=== PATIENT | female | born 1960 | race Caucasian/White ===

== ENCOUNTER 2025-03-06 13:54 | Outpatient (REF) | payer OTHER, SELFPAY ==
--- NOTE | ~2025-03-06 | XR_ITS ---
EXAMINATION: XR CERVICAL SPINE CLINICAL INFORMATION: G95.9 - Disease of spinal cord, unspecified COMPARISON: None available. TECHNIQUE: Or views of the cervical spine, inclusive of flexion and extension views, were obtained. FINDINGS: There is normal cervical lordosis. The vertebral heights and alignment is normal. There is loss of C4-C5, C5-6 and C6-C7 disc heights with ventral spondylosis. No visible acute fracture, dislocation or subluxation seen. No lytic or sclerotic process seen. There are bilateral C7 cervical ribs. The prevertebral and paravertebral soft tissues are normal XR/XR cervical spine 4V IMPRESSION: Mild degenerative disc changes C4-5, C5-6 and C 6-7 disc levels. No visible acute fracture or dislocation. Electronically signed by: Armani Rae MD 03/07/2025 02:32 PM EDT
--- NOTE | ~2025-03-06 | XR_ITS ---
EXAMINATION: Lumbar spine 4 views. CLINICAL INDICATION: Spondylolisthesis. COMPARISON: None. FINDINGS: There is grade 1 anterolisthesis L4 over L5. There are bilateral Vascular screws and interconnecting rods at L5 and S1 vertebra for posterior fusion. Rest of the vertebral alignment is normal. There is loss of L4-5 and L5-S1 disc heights. On flexion-extension views there is no reduction in L4 over L5 listhesis. No visible acute fracture, lytic or sclerotic process seen. The paravertebral soft tissues are normal. XR/XR lumbar spine 4V min IMPRESSION: Grade 1 anterolisthesis L4 over L5 and posterior hardware at the L5-S1 disc level for fusion. There is no subluxation at these disc levels on flexion or extension views. Electronically signed by: Armani Rae MD 03/07/2025 03:25 PM EDT
--- OUTSIDE RECORDS SUMMARY | 2025-03-06 16:45 | XMS_ITS | Encounter Summary ---
Author Organization [employer] Address [address] [place] [address] 7t [place] [address] Care Team Providers Care Telephone Services Sales Representative Name Role Phone Krystyna Bose PA-C Primary Care Provider Unav ailable Encounter Details Date Type Department Care Team (Late st Contact Info) Description 11/05/2023 Orders Only [facility] [address] [place] [address] Krystyna Bose PA-C Social History Tobacco Use [...] on filedocumented in this encounter Care Teams Telephone Services Sales Representative Relationship Specialty Start Date End Date Krystyna Bose PA-C PCP - General Family Medicine 10/31/22 documented as of this encounter
--- OUTSIDE RECORDS SUMMARY | 2025-03-06 16:45 | XMS_ITS | Encounter Summary ---
Author Organization [employer] Address [address] [place] [address] 7t [place] [address] Care Team Providers Care Software Project Engineer Name Role Phone Krystyna Bose PA-C Primary Care Provider Unav ailable Reason for Visit * Reason Comments Med Refill Encounter Details Date Type Department Care Team ([facility] st Contact Info) Description 11/11/2024 Refill [facility] MEDICAL [address] [place] [address] Bharti James MD [address] [place] [address] Fibromyalgia Social History Tobacco Use Types Packs/Day [...] myositis documented in this encounter Care Teams Software Project Engineer Relationship Specialty Start Date End Date Krystyna Bose PA-C PCP - General Family Medicine 10/31/22 documented as of this encounter
--- OUTSIDE RECORDS SUMMARY | 2025-03-06 16:45 | XMS_ITS | Clinical Summary ---
Author Organization [employer] Address [address] [place] [address] 7t [place] [address] Care Team Providers Care Ramp Service Man Name Role Phone Krystyna Bose PA-C Primary [...] Type Department Care Team Description 03/01/[address] [address] Kaylene Echeverria CNP 02/24/[address] [address] Krystyna Bose PA-C Chronic pain syndrome; History of lumbar fusion; Fibromyalgia 02/24/[address] [address] Kaylene Echeverria CNP Chronic pain syndrome 02/03/[address] [address] Krystyna Bose PA-C Med Refill 01/31/[address] [address] Shaista Carranza FNP 01/31/[address] [address] [place], [place], CREDIT FRONT OFFICE DEVELOPER Hyperlipidemia, unspecified; Chronic pain syndrome 01/30/[address] [address] Krystyna Bose PA-C Chronic pain syndrome; History of lumbar fusion; Fibromyalgia 01/05/[address] [address] Krystyna Bose PA-C ? refill date change request 01/04/2025 1:40 PM EST Office Visit [address] [address] Shaista Carranza, CEDRICK Chronic pain syndrome (Primary Dx); History of lumbar fusion; Chronic neck pain 01/04/[address] [address] Shaista Carranza FNP Med Refill 12/30/[address] [address] Krystyna Bose PA-C Chronic pain syndrome; History of lumbar fusion 12/25/[address] [address] Aleksandra Orellana, CEDRICK Chronic pain syndrome 12/08/[address] [address] Aleksandra Orellana, CREDIT FRONT OFFICE DEVELOPER Chronic pain syndrome 12/08/[address] [address] Krystyna Bose PA-C Prior Authorization (oxycodone) 12/07/2024 1:40 PM EST Office Visit [address] [address] Shaista Carranza FNP Fibromyalgia (Primary Dx); Chronic pain syndrome; History of lumbar fusion 12/07/2024 Orders Only [address] [address] Shaista Carranza FNP 12/06/[address] [address] Krystyna Bose PA-C Chronic pain syndrome from [...] Laterality Modality Spine, L-spine Magnetic Resonan ce [facility] [place] IMG MRI PROCEDURES Final Result * MR Thoracic Spine w/o Contrast (01/07/2025) Anatomical Region Laterality Modality Spine, T-spine Magnetic Resonan ce [facility] [place] IMG MRI PROCEDURES Final Result * MR Cervical Spine w/o Contrast (01/07/2025) Anatomical Region Laterality Modality Spine, C-spine Magnetic Resonan ce [facility] [place] IMG MRI PROCEDURES Final Result * ToxAssure?? [...] 12:05 PM EST Performed at: ??01 - [employer] [address] [place] [address] ??[id number] Patient Sitter: Rachell Moreno [facility], Phone: ??[phone] Specimen Comment: A duplicate report has been generated due to demographic updates. us Shaista Carranza CREDIT FRONT OFFICE DEVELOPER LAB URINE ORDERABLES Koki l Result [facility] [...] 12:05 PM EST Performed at: ??01 - [employer] [address] ??[id number] Patient Sitter: Rachell Moreno [facility], Phone: ??[phone] Specimen Comment: A duplicate report has been generated due to demographic updates. Shaista PHILIP HISTORICAL/NON ORDERABLE LABS Final Result [facility] 1 * Opiate Class, MS, Ur RFX (12/07/2024 2:00 PM EST) Pathologist [facility] OPIATE CLASS, Urine Negative [facility] 1 Codeine, [...] 12:05 PM EST Performed at: ??01 - [employer] [address] [place] [address] ??[id number] Patient Sitter: Rachell Virgen, Phone: ??[phone] Specimen Comment: A duplicate report has been generated due to demographic updates. Shaista Carranza CREDIT FRONT OFFICE DEVELOPER HISTORICAL/NON ORDERABLE LABS Final Result [facility] 1 * Cologuard?? colon cancer screening (09/04/2023 8:12 PM EDT) Cologuard Result Negative Negative 09/11/20 5:17 AM EDT [employer] (CLIA #:[id number]) Comment: NEGATIVE TEST RESULT. A negative Cologuard [...] cancer. ??Following a negative Cologuard result, the [place] [employer] Society and U.S. Multi-Society Task Force screening guidelines recommend a Cologuard re-screening interval of 3 years. References: [place] [employer] Guideline for Colorectal Cancer Screening: https://www.cancer.org/cancer/cwgfe-qanprx-cmjlkc/cusrvrvcs-zbtfuvtoc-yrqnscw/ac s-rec ommendations.html.; Sarbjit DK, Veronika CR, Shavonne GonzálesK, Colorectal Cancer Screening: Recommendations for Physicians and Patients from the U.S. Multi-Society Task Force on Colorectal Cancer Screening , Am J Gastroenterology 2017; 112:6011-5368. TEST DESCRIPTION: Composite algorithmic analysis of stool [...] (Lizbeth Li al, N Engl J Med 2014;370(14):0035-2669.) Cologuard may produce a false negative or false positive result (no colorectal cancer or precancerous polyp present at colonoscopy follow up). A negative Cologuard test result does not guarantee the absence of CRC or advanced adenoma (pre-cancer). The current Cologuard screening interval is every 3 years. ([place] [employer] Society and U.S. Multi-Society Task Force). Cologuard performance data in a 10,000 patient pivotal study using colonoscopy as the reference method can be accessed at the following location: www.vip.com.Fresvii/results. Additional description of the Cologuard test process, warnings and precautions can be found at www.STAT-DiagnosticaogFruition Partnersrd.com. Stool specimen (specimen) 09/04/2023 8:12 PM EDT 09/07/2023 1:52 PM EDT us Krystyna Bose PA-C LAB MOLECULAR DIAGNOSTICS O RDERABLES Final Result [employer] (CLIA #:[id number]) [place] [address], * PAP, LB with CT/GC and HPV (10/31/2022 10:55 PM EST) PAP, LB WITH CT/GC AND HPV Patient Name: WHITNEY ROSA [facility] Comment: Patient : ?[id number] (Age: 62) Lab Accession #: ? [id number] Collection Date: ? 10/31/2022 Accession Date: ? 11/01/2022 Sign Out Date: ? 11/04/2022 Tissue Source: 1: THINPREP CANDY SUPERVISOR PAP TEST, CERVICAL: Final Diagnosis: NEGATIVE FOR INTRAEPITHELIAL LESION OR MALIGNANCY. Satisfactory for evaluation. ??Endocervical/transformation zone present. Procedures/Addenda: Human Papilloma Virus, High-Risk (Any Dx) ? Status: Signed Out Interpretation: Negative Methodology: Qwenty Aptima HPV mRNA assay (Nucleic Acid Amplification Test, NAAT). Clinical History: Date of Last Menstrual Period: ?? not available Menstrual History: ?? not available Contraceptive History: ??not available Ancillary Testing: ??HPV (any dx) Case imaged by the [employer] Imaging System with manual rescreening or review. Clinical History (other): ??z12.4, routine screen Phone #: ??[phone], On-Call Pathologist: ??[id number] Testing performed or reported by [facility], a Service of [facility], [address] [place] [address] Celina Garcia MD, Tire Repairman [facility]# [id number] 10/31/2022 10:5 5 PM EST 11/01/2022 6:18 AM EST Krystyna Bose PA-C LAB CYTOLOGY ORDERABLES Fin al Result [facility] [address] [place] [id number] * Colonoscopy (10/06/2011 2:33 PM EST) Anatomical Region Laterality Modality Endoscopy Impressions 10/06/2011 2:33 PM EST Normal-10 yr rpt Historical Provider ENDOSCOPY PROCEDURE ORDER ROC Final Result from Last 3 Months or Most Recently Relevant to Health Maintenance Insurance , [address] [place] [address] Care Teams Ramp Service Man Relationship Specialty Start Date End Date Krystyna Bose PA-C PCP - General Family Medicine 10/31/22
--- OUTSIDE RECORDS SUMMARY | 2025-03-06 16:45 | XMS_ITS | Encounter Summary ---
Author Organization [employer] Address [address] [place] [address] 7t [place] [address] Care Team Providers Care Job Analysis Manager Name Role Phone Krystyna Bose PA-C Primary Care Provider Unav ailable Reason for Visit * Reason Comments Med Refill Encounter Details Date Type Department Care Team (Late st Contact Info) Description 01/06/2024 Refill [facility] [address] [place] [address] Neema Lujan FNP Chronic pain syndrome Social [...] syndrome documented in this encounter Care Teams Job Analysis Manager Relationship Specialty Start Date End Date Krystyna Bose PA-C PCP - General Family Medicine 10/31/22 documented as of this encounter
--- OUTSIDE RECORDS SUMMARY | 2025-03-06 16:45 | XMS_ITS | Encounter Summary ---
Author Organization [employer] Address [address] [place] [address] 7t [place] [address] Care Team Providers Care Distribution Systems Superintendent Name Role Phone Krystyna Bose PA-C Primary Care Provider Unav ailable Reason for Visit * Reason Comments Med Refill Encounter Details Date Type Department Care Team ([facility] st Contact Info) Description 11/10/2024 Refill [place] [facility] [address] [place] [address] Bharti James MD [address] [place] [address] Fibromyalgia Social History Tobacco Use Types Packs/Day [...] myositis documented in this encounter Care Teams Distribution Systems Superintendent Relationship Specialty Start Date End Date Krystyna Bose PA-C PCP - General Family Medicine 10/31/22 documented as of this encounter
--- OUTSIDE RECORDS SUMMARY | 2025-03-06 16:45 | XMS_ITS | Encounter Summary ---
Author Organization [employer] Address [address] [facility] 7t [place] [address] Care Team Providers Care Crew Director Name Role Phone Krystyna Bose PA-C Primary Care Provider Unav ailable Reason for Visit * Reason Comments Med Change Request Encounter Details Date Type Department Care Team ([facility] Contact Info) Description 03/01/2025 Refill [place] [facility] [address] [place] [address] Kaylene Echeverria, JACKELINE [address] [place] [address] Social History Tobacco Use Types Packs/Day Years [...] on filedocumented in this encounter Care Teams Crew Director Relationship Specialty Start Date End Date Krystyna Bose PA-C PCP - General Family Medicine 10/31/22 documented as of this encounter
== END 2025-03-06 13:55 | disposition home or self-care (01) ==
LOC: HO.HOSX 13:54
PROVIDERS: PCP Family Medicine; Referring Provider Nurse Practitioner Family; Visit Provider Physician Assistant
DX: G95.9 Disease of spinal cord, unspecified (principal); M43.16 Spondylolisthesis, lumbar region; Z98.1 Arthrodesis status
CPT/HCPCS: 72050; 72110

== ENCOUNTER 2025-03-06 13:54 | Outpatient (AMB) | payer OTHER, SELFPAY ==
--- NOTE | 2025-03-06 13:59 | A.SPINEOV_ITS ---
Intake Visit Reasons: cervical stenosis Intake Note: Ms. Rosa is here today regarding her neck. MRI done @ [facility] (brought disc) Director Outpatient Services Required: No Assessment & Plan Assessment & Plan (1) Cervical myelopathy: Code(s): G95.9 - Disease of spinal cord, unspecified Category: Medical (2) Spondylolisthesis, lumbar region: Code(s): M43.16 - Spondylolisthesis, lumbar region Category: Medical Plan Dear Shaista, Thank you for referring Mrs Rosa to our office today. She is a very nice 64-year-old female who presents for evaluation of 2 separate issues today. The 1st is she has a history of an L5-S1 lumbar interbody fusion done in the early by Dr. Stallworth. She did well with that surgery, recovered and has been doing okay but over the last few years she developed increased low back pain and bilateral lower extremity pain. The symptoms are particularly bad with standing and walking. It also gets worse when there is a storm or bad weather approaching. It has gotten to the point now where she is very limited with her quality of life because of the pain. She has done a number of different conservative treatments through the years including physical therapy and chiropractor, however none recently. She has also done cortisone injections in the past as well with limited success. She has no interest in pursuing anymore of that. She comes in today for evaluation of her low back with an MRI done at [facility] showing spondylolisthesis at L4-5 consistent with the adjacent segment disease. She has taken gabapentin, metaxalone and she takes oxycodone 3 times a day nor to help with the pain. A 2nd issue is that she has been having neck pain and bilateral arm numbness, specifically when she puts her head down to read her Caron. She can make it go away if she stops with flexion of her neck. She has not report any loss of strength in her hands otherwise. She does have some balance issues. She has an MRI done at [facility] of her cervical spine showing stenosis at C4-5 with spondylolisthesis at C3-4. To this point she has had no dedicated conservative treatment on her neck and again she takes Skelaxin, gabapentin and oxycodone to help with this pain. PMH: Medical history positive for fibromyalgia, back pain, high cholesterol, chronic fatigue, history of COPD, she has been a lifelong smoker, but she does not use oxygen and just takes a few inhalers occasionally during the week but not every day. She denies any history of heart attack, stroke, bleeding disorders, blood clots, major abdominal surgery, cancer. She does have the history of back surgery as outlined above. Social hx: She is a lifelong smoker continues to smoke about half a pack a day, occasionally uses marijuana and alcohol Medications: Gabapentin, metaxalone, oxycodone, pravastatin, bupropion Allergies: Amoxicillin and erythromycin Physical exam: She is awake alert oriented no acute distress, able to stand up walk into the hallway, her tandem gait testing does reveal some unsteadiness. Motor exam reveals 5/5 strength. She is diffusely hyperreflexic with Banegas's sign in the left hand and clonus in both feet. Romberg test is negative. Imaging review: There is a cervical MRI done at [facility] which shows spondylolisthesis at C3-4, degenerative disc disease at C4-5 with moderate to severe central canal stenosis, no cord signal changes seen. Lumbar MRI done at [facility] shows postsurgical artifact at L5-S1, this obscures the spinal canal at this level. At L4-5 I can see a spondylolisthesis grade 1-2 with enlarged and hyperintense facets and bilateral foraminal narrowing. Lumbar standing flexion-extension x-rays shows significant translation anteriorly to a grade 2 spondylolisthesis with standing. Cervical flexion-extension x-rays reveals some motion at C3-4 but does not look overtly unstable. Impression: 64-year-old female presents for 2 separate issues, the 1st being her lumbar spine. She has history of previous L5-S1 fusion done by Dr. Stallworth in the early for which she recovered well, but unfortunately over the last few years she has had a progression of back pain and bilateral lower extremity pain which radiates down into her thighs. The pain is aggravated with standing, walking and activity. It has been getting progressively worse through the years and we can see on her lumbar MRI that she has adjacent segment disease and almost a grade 2 spondylolisthesis at L4-5. This would all be consistent with the adjacent segment disease. I suspect she is going to need fusion to correct this and to deal with the instability in the spine. I will review with Dr. Noguera and get back to the patient with a final plan. I do not think further conservative management in the form of physical therapy and cortisone injections will be helpful. I suspect her insurance company will want to put her through physical therapy before surgery, however I do not deem this necessary given the amount of pain she is in. A 2nd issue is with her cervical spine, she has been getting numbness down her arms consistent with Lhermitte's phenomenon and she does have hyperreflexia on exam all consistent with myelopathy. Her imaging shows moderate-severe stenosis at C4-5 which I think it is meaningful given her symptoms. I do not see any cord signal change thankfully. Again I will review with Dr. Noguera, see if he believes this patient would benefit from anterior cervical fusion at C4-5. She does have a component of neck pain in addition to the neurological symptoms, and there is a slight spondylolisthesis at C3-4 but I will need to review the x-rays with him to see if this needs to be addressed as well. Once I have a final plan I will call her back and review everything with her. Thank you for allowing us to care for your patient. The total time spent with this visit with this patient was 65 minutes reviewing history, physical exam, lumbar and cervical imaging review, and implementation of treatment plan or further diagnostic testing Junito Noguera MD,PhD [facility] Orders: Orders XR cervical spine 4V 03/06/25 G95.9 - Disease of spinal cord, unspecified XR lumbar spine 4V min 03/06/25 M43.16 - Spondylolisthesis, lumbar region Coding Level of Care Code New Pt Level 5 (15539) Diagnoses Cervical myelopathy G95.9 Spondylolisthesis, lumbar region M43.16
--- OUTSIDE RECORDS SUMMARY | 2025-03-06 16:09 | XMS_ITS | Encounter Summary ---
Author Organization [employer] Address [address] [place] [address] [address] [place] [address] Care Team Providers Care Sales Project Manager Name Role Phone Krystyna Bose PA-C Primary Care Provider Unav ailable Reason for Visit * Reason Comments Med Refill Encounter Details Date Type Department Care Team ([facility] st Contact Info) Description 11/11/2024 Refill [facility] MED[facility] [address] [place] [address] Bharti James MD [address] [place] [address] Fibromyalgia Social History Tobacco Use Types Packs/Day Years Used Date Smoking Tobacco: Every Day Cigarettes Smokeless Tobacco: Never Alcohol Use Standard Drinks/Week Comments Yes 0 (1 standard drink = 0.6 oz pur e alcohol) rare 1-2/year Comments Unknown Sex and Gender Information Value Date Recorded Sex Assigned at Female 10/30/2022 3:54 PM EST Legal Sex Female 8:33 PM EDT Gender Identity Female 10/30/2022 3:54 PM EST Sexual Orientation Straight 01/28/2023 10 :24 AM EST documented as of this encounter Miscellaneous Notes * Telephone Encounter - Freddy Martino CMA - 11/11/2024 1:56 PM EST Images from the original note were not included. Per covering provider, Pt needs to schedule an office visit before refill can be approved. documented in this encounter Plan of Treatment Not on file documented as of this encounter Visit Diagnoses Diagnosis Fibromyalgia Unspecified myalgia and myositis documented in this encounter Care Teams Sales Project Manager Relationship Specialty Start Date End Date Krystyna Bose PA-C PCP - General Family Medicine 10/31/22 documented as of this encounter
--- OUTSIDE RECORDS SUMMARY | 2025-03-06 16:09 | XMS_ITS | Encounter Summary ---
Author Organization [employer] Address [address] [place] [address] [address] [place] [address] Care Team Providers Care Zigzag Stitcher Name Role Phone Krystyna Bose PA-C Primary Care Provider Unav ailable Encounter Details Date Type Department Care Team (Late st Contact Info) Description 11/05/2023 Orders Only [facility] [address] [place] [address] Krystyna Bose PA-C Social History Tobacco Use Types Packs/Day Years [...] AM EST documented as of this encounter Plan of Treatment Not on file documented as of this encounter Procedures Procedure Name Priority Date/Time Associated Diagnosis Comments TRANSTHORACIC ECHO (TTE) COMPLETE Routine 11/03/2023 documented in this encounter Results * Transthoracic echo (TTE) complete (11/03/2023) us Krystyna Bose PA-C CV ECHO PROCEDURES Edited R esult - Final documented in this encounter Visit Diagnoses Not on filedocumented in this encounter Care Teams Zigzag Stitcher Relationship Specialty Start Date End Date Krystyna Bose PA-C PCP - General Family Medicine 10/31/22 documented as of this encounter
--- OUTSIDE RECORDS SUMMARY | 2025-03-06 16:09 | XMS_ITS | Encounter Summary ---
Author Organization [employer] Address [address] [facility] [address] [place] [address] Care Team Providers Care Product Manager Name Role Phone Krystyna Bose PA-C Primary Care Provider Unav ailable Reason for Visit * Reason Comments Med Change Request Encounter Details Date Type Department Care Team ([facility] Contact Info) Description 03/01/2025 Refill [facility] MED[facility] [address] [place] [address] Kaylene Echeverria, JACKELINE [address] [place] [address] Social History Tobacco Use Types Packs/Day Years Used Date Smoking Tobacco: Every Day Cigarettes Smokeless Tobacco: Never Alcohol Use Standard Drinks/Week Comments Not Currently 0 (1 standard drink = 0.6 oz pur e alcohol) rare 1-2/year Housing Stability Answer Date Recorded What is your housing situation today? I have pati bettencourt 12/07/[address] you li ve. Do you have problems with any of the following? None of the above 12/07/2024 Food Insecurity Answer Date Recorded Within the past 12 months, y ou worried that your food would run out before you got money to buy more: Never True 12/07/2024 Within the past 12 months,th e food you bought just didn't last and you didn't have enough money to get more: Never True Transportation Answer Date Recorded In the past 12 months, has l ack of transportation kept you from medical appts, meetings, work or from getting things needed for daily living? No 12/07/2024 Utilities Answer Date Recorded In the past 12 months, has t he electric, gas, oil or water company threatened to shut off services in your home? No 12/07/2024 Depression Answer Date Recorded Patient Health Questionnaire-2 Score 0 12/07/2024 Internet Access Answer Date Recorded Internet Access Q1 Yes 12/07/2024 Internet Access Q2 Not on file 12/07/2024 Comments Unknown Sex and Gender Information Value Date Recorded Sex Assigned at Female 10/30/2022 3:54 PM EST Legal Sex Female 8:33 PM EDT Gender Identity Female 10/30/2022 3:54 PM EST Sexual Orientation Straight 01/28/2023 10 :24 AM EST documented as of this encounter Plan of Treatment Not on file documented as of this encounter Visit Diagnoses Not on filedocumented in this encounter Care Teams Product Manager Relationship Specialty Start Date End Date Krystyna Bose PA-C PCP - General Family Medicine 10/31/22 documented as of this encounter
--- OUTSIDE RECORDS SUMMARY | 2025-03-06 16:09 | XMS_ITS | Encounter Summary ---
Author Organization [employer] Address [address] [place] [address] [address] [place] [address] Care Team Providers Care Inflated Pad Buffer Name Role Phone Krystyna Bose PA-C Primary Care Provider Unav ailable Reason for Visit * Reason Comments Med Refill Encounter Details Date Type Department Care Team (Late st Contact Info) Description 01/06/2024 Refill [facility] MED[facility] [address] [place] [id number] Neema Lujan FNP Chronic pain syndrome Social History Tobacco Use Types Packs/Day Years [...] encounter Miscellaneous Notes * Telephone Encounter - Mary Carmen Mckeon - 01/06/2024 8:36 AM EST Patient called checking on the status of her refill documented in this encounter Plan of Treatment Not on file documented as of this encounter Visit Diagnoses Diagnosis Chronic pain syndrome documented in this encounter Care Teams Inflated Pad Buffer Relationship Specialty Start Date End Date Krystyna Bose PA-C PCP - General Family Medicine 10/31/22 documented as of this encounter
--- OUTSIDE RECORDS SUMMARY | 2025-03-06 16:09 | XMS_ITS | Clinical Summary ---
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 Active Flovent HFA 220 MCG/ACT inhaler INHALE 1 PUFF BY MOUTH TWICE A DAY. INHALED TWICE A DAY 30 DAYS 11/22/20 21 Active lidocaine (Lidoderm) 5 % patch Place 1 patch on the skin at bed time. Active loratadine (Claritin) 10 MG tablet Take 10 mg by mouth in the morning. Active hydroCHLOROthia zide (HYDRODiuril) 25 MG tablet Take 25 mg by mouth in the morning. Active pravastatin (Pravachol) 20 MG tabletIndicatio ns:Hyperlipidem ia, unspecified TAKE 1 TABLET BY MOUTH EVERY DAY 90 tablet 02/01/20 25 Active buPROPion SR (Wellbutrin SR) 150 MG 12 hr tabletIndicatio ns:Chronic pain syndrome TAKE 1 TABLET BY MOUTH 2 TIMES DAILY. DO NOT CRUSH, CHEW, OR SPLIT. 180 tablet 02/01/20 25 Active metaxalone (Skelaxin) 800 MG tabletIndicatio ns:Chronic pain syndrome TAKE 1 TABLET (800 MG) BY MOUTH IF NEEDED IN THE MORNING AND AT BEDTIME FOR MUSCLE SPASMS. 60 tablet 02/25/20 25 Active oxyCODONE (Roxicodone) 5 MG immediate release tabletIndicatio ns:Chronic pain syndrome,Histor y of lumbar fusion Take 2 tablets (10 mg) by mouth in the morning AND 1 tablet (5 mg) with lunch AND 2 tablets (10 mg) at bedtime. Do all this for 28 days. DNF Date: 03/01/2025 - Space dosing at least 4-6 hours. 140 tablet 02/25/20 25 025 Active gabapentin (Neurontin) 100 MG capsuleIndicati ons:Fibromyalgi a Take 2 capsules (200 mg) by mouth 2 times daily. DNF until 02/03/2025 120 capsule 02/25/20 25 Active gabapentin (Neurontin) 600 MG tabletIndicatio ns:Fibromyalgia Take 1 tablet (600 mg) by mouth 2 times daily. DNF until 02/03/2025 60 tablet 02/25/20 25 Active hydrOXYzine HCl (Atarax) 25 MG tablet TAKE 1 TABLET BY MOUTH IF NEEDED AT BEDTIME FOR INSOMNIA 90 tablet 03/01/20 25 Active oxyCODONE (Roxicodone) 5 MG immediate release tabletIndicatio ns:Chronic pain syndrome,Histor y of lumbar fusion Take 2 tablets (10 mg) by mouth in the morning AND 1 tablet (5 mg) with lunch AND 2 tablets (10 mg) at bedtime. Do all this for 28 days. DNF until 02/03/2025. Space dosing at least 4-6 hours. 140 tablet 02/01/20 25 025 Discontinued(Re order (will not trigger notification to Pharmacy)) gabapentin (Neurontin) 600 MG tabletIndicatio ns:Fibromyalgia Take 1 tablet (600 mg) by mouth 2 times daily. DNF until 02/03/2025 60 tablet 02/01/20 25 025 Discontinued(Re order (will not trigger notification to Pharmacy)) gabapentin (Neurontin) 100 MG capsuleIndicati ons:Fibromyalgi a Take 2 capsules (200 mg) by mouth 2 times daily. DNF until 02/03/2025 120 capsule 02/01/20 25 025 Discontinued(Re order (will not trigger notification to Pharmacy)) metaxalone (Skelaxin) 800 MG tabletIndicatio ns:Chronic pain syndrome Take 1 tablet (800 mg) by mouth if needed in the morning and at bedtime for muscle spasms. 60 tablet 02/01/20 25 025 Discontinued hydrOXYzine HCl (Atarax) 25 MG tablet TAKE 1 TABLET (25 MG) BY MOUTH IF NEEDED AT BEDTIME (INSOMNIA). 30 tablet 02/01/20 25 025 Discontinued Active Problems Problem Noted Date Diagnosed Date Chronic obstructive pulmonary disease 10/03/2022 Overview (02/01/2024): Rx flovent and proair. Does not use inhalers regularly. Admits to callie sob. ECHO was wnl so likely due to poorly controlled COPD. Recommended she start using inhalers as prescribed and can consider trelegy if sx continue. Chronic pain syndrome 10/03/2022 Overview (01/04/2025): Current management Oxycodone 10mg AM, 10mg Noon and 5mg at HS. Gabapentin 600mg BID with 400mg at noon. Utox: utox CSA MME: Fibromyalgia 10/03/2022 Overview (10/28/2022): On chronic pain management, no longer sees rheum Hyperlipidemia 10/03/2022 Overview (02/01/2024): On pravastatin, did not get labs that ordered, stressed importance of checking labs to know if meds are appropriate. Counseled on diet and exercise Major depression, single episode 10/03/2022 Overview (10/28/2022): Stable on buproprion Smoker 10/03/2022 Overview (08/04/2024): Smokes 3/4 ppd, has smoked for 45 years. LDCT 2017 showed 3mm nodule in RUL. Repeat ordered 01/2024 Assessment & Plan (10/31/2022 2:27 PM EST): Encouraged to quit Varicose veins of both lower extremities 022 Overview (02/01/2024): Takes hydrochlorothiazide prn for LE edema. Recommended compresion stockings Encounters Date Type Department Care Team Description 03/01/[address] [address] Kaylene Echeverria CNP 02/24/[address] [address] Krystyna Bose PA-C Chronic pain syndrome; History of lumbar fusion; Fibromyalgia 02/24/[address] [address] Kaylene Echeverria CNP Chronic pain syndrome 02/03/[address] [address] Krystyna Bose PA-C Med Refill 01/31/[address] [address] Shaista Carranza FNP 01/31/[address] [address] [place], [place], [employer] SALESPERSON Hyperlipidemia, unspecified; Chronic pain syndrome 01/30/[address] [address] Krystyna Bose PA-C Chronic pain syndrome; History of lumbar fusion; Fibromyalgia 01/05/[address] [address] Krystyna Bose PA-C ? refill date change request 01/04/2025 1:40 PM EST Office Visit [address] [address] Shaista Carranza, CEDRICK Chronic pain syndrome (Primary Dx); History of lumbar fusion; Chronic neck pain 01/04/[address] [address] Shaista Carranza FNP Med Refill 12/30/[address] [address] Krystyna Bose PA-C Chronic pain syndrome; History of lumbar fusion 12/25/[address] [address] Aleksandra Orellana, CEDRICK Chronic pain syndrome 12/08/[address] [address] Aleksandra Orellana, [employer] SALESPERSON Chronic pain syndrome 12/08/[address] [address] Krystyna Bose PA-C Prior Authorization (oxycodone) 12/07/2024 1:40 PM EST Office Visit [address] [address] Shaista Carranza FNP Fibromyalgia (Primary Dx); Chronic pain syndrome; History of lumbar fusion 12/07/2024 Orders Only [address] [address] Shaista Carranza FNP 12/06/[address] [address] Krystyna Bose PA-C Chronic pain syndrome from Last 3 Months Immunizations Name Administration Dates Next Due Influenza Injectable Quadriv alant Preservative Free IIV4 MDCK 08/03/2023 Influenza injectable quadriv alent preservative free 09/12/2019 Influenza, IIV3, injectable 08/04/2024,1 11/30/2021,10/21/2021,09/17,10/08/2018,01/20/2018,09/05/2016 ,09/14/2014 Influenza, Split (incl. angela fied surface antigen) 08/29/2013,09/02/2012,09/05/2011,09/18,09/07/2009 Influenza, seasonal, injecta ble, preservative free 08/04/2024 Moderna Covid-19 Vaccine 12+ 02/01/2024 Pfizer Covid-19 Vaccine 12+ 12/24/2021, 2,02/21/2021 Pfizer Covid-19 Vaccine 12+ annalee-sucrose (Chaudhari Cap) 12/20/2021 Pneumococcal Polysaccharide PPSV23 09/20/2008 TD (adult), 2 Lf tetanus tox oid, preservative free, adsorbed 11/23/1998 Tdap 10/31/2022,05/08/2011 Zoster, Recombinant 04/11/2021 Zoster, live 04/11/2021 Social History Tobacco Use Types Packs/Day Years Used Date Smoking Tobacco: Every Day Cigarettes Smokeless Tobacco: Never Tobacco Cessation:Ready to Q uit: Not Asked; Counseling Given: Not Answered Alcohol Use Standard Drinks/Week Comments Not Currently [...] Orientation Straight 01/28/2023 10 :24 AM EST Last Filed Vital Signs Vital Sign Reading Time Taken Comments Blood Pressure 118/70 01/04/2025 1:43 PM EST Pulse 76 01/04/2025 1:43 PM EST Temperature 36.5 ??C (97.7 ??F) 01/04/2025 1:43 PM ES T Respiratory Rate 16 01/04/2025 1:43 PM EST Oxygen Saturation 98% 10/31/2022 2:17 PM EST Inhaled Oxygen Concentration - - Weight 84.4 kg (186 lb) 01/04/2025 1:43 PM EST Height 156.8 cm (5' 1.75 ) 01/04/2025 1:43 PM ES T Body Mass Index 34.3 01/04/2025 1:43 PM EST Plan of Treatment Health Maintenance Due Date Last Done Comments CT Colonography 1960 FIT 1960 FOBT 1960 HIV Screening 1960 Lipid Panel 1960 Sigmoidoscopy 1960 Alcohol/Substance Use Screening 1972 Hepatitis C Screening 1978 Mammogram 2000 Pneumococcal Vaccine: 50+ Years (2 of 2 - PCV) 09/20/2009 09/20/2008 RSV Patients and Patients Aged 60 years or older (1 - Risk 60-74 years 1-dose series) 2020 Zoster Vaccines (3 of 3) 06/06/2021 04/11/2021, 05 Colonoscopy 10/06/2021 10/06/2011 COVID-19 Vaccine ( season) 2024 02/01/2024, 09/30/2022, 12/24/2021, Additional history exists Depression Screening 12/07/2025 12/07/2024, 12/07/19 25 SDOH Screening 12/07/2025 12/07/2024 Tobacco Screening 01/04/2026 01/04/2025 Colorectal Cancer Screening 09/04/2026 FIT DNA/Cologuard 09/04/2026 09/04/2023 Cervical Cancer Screening 10/31/2027 HPV/Cotest 10/31/2027 10/31/2022 Pap Smear 10/31/2027 10/31/2022, 02/13/2016 DTaP/Tdap/Td Vaccines (3 - Td or Tdap) 10/31/2032 10/31/2022, 05/08/2011, 11/23/1998 Influenza Vaccine Completed 08/04/2024, , 08/03/2023, Additional history exists HIB Vaccines Aged Out No longer eligi ble based on patient's age to complete this topic HPV Vaccines Aged Out No longer eligi ble based on patient's age to complete this topic Hepatitis A Vaccines Aged Out No long er eligible based on patient's age to complete this topic Hepatitis B Vaccines Aged Out No long er eligible based on patient's age to complete this topic IPV Vaccines Aged Out No longer eligi ble based on patient's age to complete this topic Meningococcal Vaccine Aged Out No jac marcellus eligible based on patient's age to complete this topic RSV under 20 months Aged Out No longe r eligible based on patient's age to complete this topic Rotavirus Vaccines Aged Out No longer eligible based on patient's age to complete this topic Procedures Procedure Name Priority Date/Time Associated Diagnosis Comments MR CERVICAL SPINE WO CONTRAST Routine 01/07/2025 Chronic pain syndrome MR THORACIC SPINE WO CONTRAST Routine 01/07/2025 Chronic pain syndrome MR LUMBAR SPINE WO CONTRAST STAT 01/07/2025 Chronic pain syndrome OXYCODONE CLASS, MS, UR RFX (NON ORDERABLE) Routine 12/07/2024 2:00 PM EST OPIATE CLASS, MS, UR RFX (NON ORDERABLE) Routine 12/07/2024 2:00 PM EST TOXASSURE?? FLEX 15, URINE Routine 12/07/2024 2:00 PM EST LAB COLOGUARD?? COLON CANCER SCREEN Routine 09/04/2023 8:12 PM EDT Routine health maintenance PAP, LB WITH CT/GC AND HPV Routine 10/31/2022 10:55 PM EST COLONOSCOPY Routine 10/06/2011 2:33 PM EST from Last 3 Months or Most Recently Relevant to Health Maintenance Results * MR Lumbar Spine w/o Contrast (01/07/2025) Anatomical Region Laterality Modality Spine, L-spine Magnetic Resonan ce [facility] IMG MRI PROCEDURES Final Result * MR Thoracic Spine w/o Contrast (01/07/2025) Anatomical Region Laterality Modality Spine, T-spine Magnetic Resonan ce [facility] IMG MRI PROCEDURES Final Result * MR Cervical Spine w/o Contrast (01/07/2025) Anatomical Region Laterality Modality Spine, C-spine Magnetic Resonan ce [facility] IMG MRI PROCEDURES Final Result * ToxAssure?? Flex 15, Urine (12/07/2024 2:00 PM EST) Summary Report FINAL [facility] Comment: Opiate Class, MS, Ur RFX Oxycodone Class, MS, Ur RFX ToxAssure Flex 15, Ur Test ? Result ? Flag ? Units Drug Present ??Oxycodone ?987 ? ng/mg creat ??Noroxycodone ? 1974 ?ng/mg creat ?? Sources of oxycodone include scheduled prescription medications. ?? Noroxycodone is an expected metabolite of oxycodone. Test ?Result ?Flag ?? Units ?Ref Range ??Creatinine ?31 ? mg/dL ?>=20 Declared Medications: Medication list was not provided. For clinical consultation, please call . Creatinine, Urine 31 mg/dL [facility] 1 Comment:REFERENCE RANGE: Ref Range>=20 Amphetamines IA, Urine Negative CUTOFF:30 0 ng/mL [facility] 1 Benzodiazepines, Urine Negative [facility] 1 Diazepam, Urine Not Detected ng/mg creat [facility] 1 Desmethyldiazepam, Urine Not Detected ng/mg creat [facility] 1 Oxazepam, Urine Not Detected ng/mg creat [facility] 1 Temazepam, Urine Not Detected ng/mg creat [facility] 1 Comment: Expected metabolism of benzodiazepine class drugs: Parent Drug ? Detected Metabolites ? Diazepam: ? Desmethyldiazepam, Temazepam, Oxazepam Chlordiazepoxide: Desmethyldiazepam, Oxazepam Clorazepate: ?Desmethyldiazepam, Oxazepam Halazepam: ?Desmethyldiazepam, Oxazepam Temazepam: ?Oxazepam Oxazepam: ? None Alprazolam, Urine Not Detected ng/mg creat [facility] 1 Alpha-hydroxyalpra zolam, Urine Not Detected ng/mg creat [facility] 1 Desalkylflurazepam , Urine Not Detected ng/mg creat [facility] 1 Lorazepam, Urine Not Detected ng/mg creat [facility] 1 Alpha-hydroxytriaz olam, Urine Not Detected ng/mg creat [facility] 1 Clonazepam, Urine Not Detected ng/mg creat [facility] 1 7-aminoclonazepam, Urine Not Detected ng/mg creat [facility] 1 Midazolam, Urine Not Detected ng/mg creat [facility] 1 Alpha-hydroxymidaz olam, Urine Not Detected ng/mg creat [facility] 1 Flunitrazepam, Urine Not Detected ng/mg creat [facility] 1 Desmethylflunitraz epam, Urine Not Detected ng/mg creat [facility] 1 Cocaine Metabolite IA, Urine Negative CUTOFF:15 0 ng/mL [facility] 1 ETHYL ALCOHOL Enzymatic, Urine Negative CUTOFF:0. 020 g/dL [facility] 1 CANNABINOIDS IA, Urine Negative CUTOFF:20 ng/mL [facility] 1 6-Acetylmorphine IA, Urine Negative CUTOFF:10 ng/mL [facility] 1 OPIATE CLASS IA, Urine CUTOFF:10 0 ng/mL [facility] 1 Comment:Further testing ulises cated OXYCODONE CLASS IA, Urine CUTOFF:10 0 ng/mL [facility] 1 Comment:Further testing ulises cated Methadone IA, Urine Negative CUTOFF:10 0 ng/mL [facility] 1 METHADONE MTB IA, Urine Negative CUTOFF:10 0 ng/mL [facility] 1 BUPRENORPHINE, Urine Negative [facility] 1 Buprenorphine, Urine Not Detected ng/mg creat [facility] 1 Norbuprenorphine, Urine Not Detected ng/mg creat [facility] 1 FENTANYL & ANALOGUES, Urine Negative [facility] 1 Fentanyl, Urine Not Detected ng/mg creat [facility] 1 Norfentanyl, Urine Not Detected ng/mg creat [facility] 1 TAPENTADOL IA, Urine Negative CUTOFF:20 0 ng/mL [facility] 1 Tramadol IA, Urine Negative CUTOFF:20 0 ng/mL [facility] 1 Barbiturates IA, Urine Negative CUTOFF:20 0 ng/mL [facility] 1 Phencyclidine (PCP) IA, urine Negative CUTOFF:25 ng/mL [facility] 1 12/07/2024 2:00 PM EST 12/07/2024 Narrative [facility] - 12/12/2024 12:05 PM EST Performed at: ??01 - [employer] [address] [place] [address] ??[id number] Termite Control Representative: Rachell Moreno [facility], Phone: ??[phone] Specimen Comment: A duplicate report has been generated due to demographic updates. us Shaista Carranza [employer] SALESPERSON LAB URINE ORDERABLES Koki l Result [facility] * Oxycodone Class, MS, Ur RFX (12/07/2024 2:00 PM EST) OXYCODONE CLASS, Urine +POSITIVE+ [facility] 1 Oxycodone, Urine 987 ng/mg creat [facility] 1 Oxymorphone, Urine Not Detected ng/mg creat [facility] 1 Noroxycodone, Urine 1,974 ng/mg creat [facility] 1 Noroxymorphone, Urine Not Detected ng/mg creat [facility] 1 Comment: Expected metabolism of oxycodone class drugs: Parent Drug ? Detected Metabolites ? Oxycodone: ?Oxymorphone, Noroxycodone, Noroxymorphone Oxymorphone: ?Noroxymorphone 12/07/2024 2:00 PM EST 12/07/2024 Narrative [facility] - 12/12/2024 12:05 PM EST Performed at: ??01 - [employer] [address] ??[id number] Termite Control Representative: Rachell Moreno [facility], Phone: ??[phone] Specimen Comment: A duplicate report has been generated due to demographic updates. Shaista PHILIP HISTORICAL/NON ORDERABLE LABS Final Result [facility] * Opiate Class, MS, Ur RFX (12/07/2024 2:00 PM EST) Pathologist [facility] OPIATE CLASS, Urine Negative [facility] 1 Codeine, Urine Not Detected ng/mg creat [facility] 1 Morphine, Urine Not Detected ng/mg creat [facility] 1 Normorphine, Urine Not Detected ng/mg creat [facility] 1 Norcodeine, Urine Not Detected ng/mg creat [facility] 1 Hydrocodone, Urine Not Detected ng/mg creat [facility] 1 Hydromorphone, Urine Not Detected ng/mg creat [facility] 1 Dihydrocodeine, Urine Not Detected ng/mg creat [facility] 1 Norhydrocodone, Urine Not Detected ng/mg creat [facility] 1 Comment: Expected metabolism of opiate class drugs: Parent Drug ? Detected Metabolites ? Codeine: ?Major: ??Morphine, Norcodeine ? Minor: ??Hydrocodone, Hydromorphone, ? Dihydrocodeine, Norhydrocodone, ? Normorphine Morphine: ? Major: ??Normorphine ? Minor: ??Hydromorphone Hydrocodone: ?Hydromorphone, Dihydrocodeine, ? Norhydrocodone Hydromorphone: ?None Dihydrocodeine: ?? None Heroin: ? 6-Acetylmorphine (if included), ? Morphine, Normorphine ? Codeine, in small amounts in comparison ?to morphine, is often detected when ?heroin is the source drug. 12/07/2024 2:00 PM EST 12/07/2024 Narrative [facility] - 12/12/2024 12:05 PM EST Performed at: ??01 - [employer] [address] [place] [address] ??[id number] Termite Control Representative: Rachell Virgen, Phone: ??[phone] Specimen Comment: A duplicate report has been generated due to demographic updates. Shaista Carranza [employer] SALESPERSON HISTORICAL/NON ORDERABLE LABS Final Result [facility] * Cologuard?? colon cancer screening (09/04/2023 8:12 PM EDT) Cologuard Result Negative Negative 09/11/20 5:17 AM EDT [facility] [employer] (CLIA #:[id number]) Comment: NEGATIVE TEST RESULT. A negative Cologuard result indicates a low likelihood that a colorectal cancer (CRC) or advanced adenoma (adenomatous polyps with more advanced pre-malignant features) ??is present. The chance that a person with a negative Cologuard test has a colorectal cancer is less than 1 in 1500 (negative predictive value >99.9%) or has an ??advanced adenoma is less than ??5.3% (negative predictive value 94.7%). These data are based on a prospective cross-sectional study of 10,000 individuals at average risk for colorectal cancer who were screened with both Cologuard and colonoscopy. (Lizbeth Li al, N Engl J Med 2014;370(14):1286- 1297) The normal value (reference range) for this assay is negative. COLOGUARD RE-SCREENING RECOMMENDATION: Periodic colorectal cancer screening is an important part of preventive healthcare for asymptomatic individuals at average risk for colorectal cancer. ??Following a negative Cologuard result, the [place] [employer] and U.S. Multi-Society Task Force screening guidelines recommend a Cologuard re-screening interval of 3 years. References: [place] [employer] Guideline for Colorectal Cancer Screening: https://www.cancer.org/cancer/jmvqm-xklaov-vsixsq/fodedbkus-iuunrswsi-phuwalg/ac s-rec ommendations.html.; Sarbjit DK, Veronika CR, Shavonne GonzálesK, Colorectal Cancer Screening: Recommendations for Physicians and Patients from the U.S. Multi-Society Task Force on Colorectal Cancer Screening , Am J Gastroenterology 2017; 112:5118-7200. TEST DESCRIPTION: Composite algorithmic analysis of stool DNA-biomarkers with hemoglobin immunoassay. ?? Quantitative values of individual biomarkers are not reportable and are not associated with individual biomarker result reference ranges. Cologuard is intended for colorectal cancer screening of adults of either sex, 45 years or older, who are at average-risk for colorectal cancer (CRC). Cologuard has been approved for use by the U.S. FDA. The performance of Cologuard was established in a cross sectional study of average-risk adults aged 50-84. Cologuard performance in patients ages 45 to 49 years was estimated by sub-group analysis of near-age groups. Colonoscopies performed for a positive result may find as the most clinically significant lesion: colorectal cancer [4.0%], advanced adenoma (including sessile serrated polyps greater than or equal to 1cm diameter) [20%] or non- advanced adenoma [31%]; or no colorectal neoplasia [45%]. These estimates are derived from a prospective cross-sectional screening study of 10,000 individuals at average risk for colorectal cancer who were screened with both Cologuard and colonoscopy. (Lizbeth Li al, N Engl J Med 2014;370(14):9068-5507.) Cologuard may produce a false negative or false positive result (no colorectal cancer or precancerous polyp present at colonoscopy follow up). A negative Cologuard test result does not guarantee the absence of CRC or advanced adenoma (pre-cancer). The current Cologuard screening interval is every 3 years. ([place] [employer] and U.S. Multi-Society Task Force). Cologuard performance data in a 10,000 patient pivotal study using colonoscopy as the reference method can be accessed at the following location: www.[employer]/results. Additional description of the Cologuard test process, warnings and precautions can be found at www.[email or web address].com. Stool specimen (specimen) 09/04/2023 8:12 PM EDT 09/07/2023 1:52 PM EDT us Krystyna Bose PA-C LAB MOLECULAR DIAGNOSTICS O RDERABLES Final Result [facility] (CLIA #:[id number]) [place] [address], * PAP, LB with CT/GC and HPV (10/31/2022 10:55 PM EST) PAP, LB WITH CT/GC AND HPV Patient Name: WHITNEY ROSA [facility] Comment: Patient : ?1960 (Age: 62) Lab Accession #: ? [id number] Collection Date: ? 10/31/2022 Accession Date: ? 11/01/2022 Sign Out Date: ? 11/04/2022 Tissue Source: 1: [employer] PAP TEST, CERVICAL: Final Diagnosis: NEGATIVE FOR INTRAEPITHELIAL LESION OR MALIGNANCY. Satisfactory for evaluation. ??Endocervical/transformation zone present. Procedures/Addenda: Human Papilloma Virus, High-Risk (Any Dx) ? Status: Signed Out Interpretation: Negative Methodology: [email or web address] Aptima HPV mRNA assay (Nucleic Acid Amplification Test, NAAT). Clinical History: Date of Last Menstrual Period: ?? not available Menstrual History: ?? not available Contraceptive History: ??not available Ancillary Testing: ??HPV (any dx) Case imaged by the [employer] Imaging System with manual rescreening or review. Clinical History (other): ??z12.4, routine screen Phone #: ??[phone], On-Call Pathologist: ??[id number] Testing performed or reported by [facility], a Service of [facility], [address] [place] [address] Celina Garcia MD, Orthopedic Specialist [facility]# [id number] 10/31/2022 10:5 5 PM EST 11/01/2022 6:18 AM EST Krystyna Bose PA-C LAB CYTOLOGY ORDERABLES Fin al Result [facility] [address] [place] [id number] * Colonoscopy (10/06/2011 2:33 PM EST) Anatomical Region Laterality Modality Endoscopy Impressions 10/06/2011 2:33 PM EST Normal-10 yr rpt Historical Provider ENDOSCOPY PROCEDURE ORDER [facility] Final Result from Last 3 Months or Most Recently Relevant to Health Maintenance Insurance , [address] [place] [address] Care Teams Polystyrene Molding Machine Tender Relationship Specialty Start Date End Date Krystyna Bose PA-C PCP - General Family Medicine 10/31/22
--- OUTSIDE RECORDS SUMMARY | 2025-03-06 16:09 | XMS_ITS | Encounter Summary ---
Author Organization [employer] Address [address] [place] [address] 7t [place] [address] Care Team Providers Care Special Agent Group Insurance Name Role Phone Krystyna Bose PA-C Primary Care Provider Unav ailable Reason for Visit * Reason Comments Med Refill Encounter Details Date Type Department Care Team ([facility] st Contact Info) Description 11/10/2024 Refill [place] [facility] MED[facility] [address] [place] [address] Bharti James MD [address] [place] [address] Fibromyalgia Social History Tobacco Use Types Packs/Day [...] Telephone Encounter - Freddy Martino CMA - 11/10/2024 2:11 PM EST Pt needs to schedule an office visit before any medications can be refilled. documented in this encounter Plan of Treatment Not on file documented as of this encounter Visit Diagnoses Diagnosis Fibromyalgia Unspecified myalgia and myositis documented in this encounter Care Teams Special Agent Group Insurance Relationship Specialty Start Date End Date Krystyna Bose PA-C PCP - General Family Medicine 10/31/22 documented as of this encounter
== END 2025-03-06 15:31 | disposition home or self-care (01) ==
PROVIDERS: PCP Family Medicine; Referring Provider Nurse Practitioner Family; Visit Provider Physician Assistant
DX: G95.9 Disease of spinal cord, unspecified (principal); M43.16 Spondylolisthesis, lumbar region
CPT/HCPCS: 99205

== ENCOUNTER → 2025-03-06 14:24 | Outpatient (BNV) | payer OTHER, SELFPAY | PROVIDERS: PCP Family Medicine; Referring Provider Nurse Practitioner Family; Visit Provider Radiology Diagnostic Radiology | DX: G95.9 Disease of spinal cord, unspecified (principal); M43.16 Spondylolisthesis, lumbar region; M43.27 Fusion of spine, lumbosacral region | CPT/HCPCS: 72050; 72110 ==

== ENCOUNTER 2025-04-07 13:26 | Outpatient (AMB) | payer OTHER, SELFPAY ==
--- OUTSIDE RECORDS SUMMARY | 2025-04-07 13:28 | XMS_ITS | Encounter Summary ---
Author Organization [employer] Address [address] [facility] 7t [place] [address] Care Team Providers Care Market Development Director Name Role Phone Krystyna Bose PA-C Primary Care Provider Unav ailable Encounter Details Date Type Department Care Team (Late Contact Info) Description 11/05/2023 Orders Only [place] [address] [place] [address] Krystyna Bose PA-C Social History Tobacco Use [...] as of this encounter Plan of Treatment Upcoming Encounters Date Type Department Care Team (Late Contact Info) Description 04/10/2025 1:40 PM EDT Office Visit [facility] MEDICAL [address] [place] [address] Shaista Carranza FNP [address] [place] [address] documented as of this encounter Procedures Procedure Name Priority Date/Time Associated Diagnosis Comments TRANSTHORACIC ECHO (TTE) COMPLETE Routine 11/03/2023 documented in this encounter Results * Transthoracic echo (TTE) complete (11/03/2023) us Krystyna Bose PA-C CV ECHO PROCEDURES Edited R esult - Final documented in this encounter Visit Diagnoses Not on filedocumented in this encounter Care Teams Market Development Director Relationship Specialty Start Date End Date Krystyna Bose PA-C PCP - General Family Medicine 10/31/22 documented as of this encounter
--- OUTSIDE RECORDS SUMMARY | 2025-04-07 13:28 | XMS_ITS | Encounter Summary ---
Author Organization [employer] Address [address] [facility] 7t [place] [address] Care Team Providers Care Warehouse Director Name Role Phone Krystyna Bose PA-C Primary Care Provider Unav ailable Reason for Visit * Reason Comments Med Refill Encounter Details Date Type Department Care Team (Late st Contact Info) Description 11/11/[address] [facility] MEDICAL [address] [place] [address] Bharti James MD [address] [place] [address] Fibromyalgia Social History Tobacco Use Types Packs/Day [...] documented in this encounter Plan of Treatment Upcoming Encounters Date Type Department Care Team (Late st Contact Info) Description 04/10/2025 1:40 PM EDT Office Visit [facility] MEDICAL [address] [place] [address] Shaista Carranza FNP [address] [place] [address] documented as of this encounter Visit Diagnoses Diagnosis Fibromyalgia Unspecified myalgia and myositis documented in this encounter Care Teams Warehouse Director Relationship Specialty Start Date End Date Krystyna Bose PA-C PCP - General Family Medicine 10/31/22 documented as of this encounter
--- OUTSIDE RECORDS SUMMARY | 2025-04-07 13:28 | XMS_ITS | Clinical Summary ---
Author Organization [employer] Address [address] [facility] [address] [place] [address] Care Team Providers Care Assistant Banquet Manager Name Role Phone Krystyna Bose PA-C [...] mg by mouth in the morning. Active gabapentin (Neurontin) 100 MG capsuleIndicati ons:Fibromyalgi a Take 2 capsules (200 mg) by mouth 2 times daily. DNF until 02/03/2025 120 capsule 02/25/20 25 Active hydrOXYzine HCl (Atarax) 25 MG tablet TAKE 1 TABLET BY MOUTH IF NEEDED AT BEDTIME FOR INSOMNIA 90 tablet 03/01/20 25 Active metaxalone (Skelaxin) 800 MG tabletIndicatio ns:Chronic pain syndrome TAKE 1 TABLET (800 MG) BY MOUTH IF NEEDED IN THE MORNING AND AT BEDTIME FOR MUSCLE SPASMS. 60 tablet 03/24/20 25 Active gabapentin (Neurontin) 600 MG tabletIndicatio ns:Fibromyalgia TAKE 1 TABLET (600 MG) BY MOUTH 2 TIMES DAILY 60 tablet 03/24/20 25 Active buPROPion SR (Wellbutrin SR) 150 MG 12 hr tabletIndicatio ns:Chronic pain syndrome Take 1 tablet (150 mg) by mouth 2 times daily. Do not crush, chew, or split. 180 tablet 03/24/20 25 Active pravastatin (Pravachol) 20 MG tabletIndicatio ns:Hyperlipidem ia, unspecified Take 1 tablet (20 mg) by mouth Once per day. 90 tablet 03/24/20 25 Active oxyCODONE (Roxicodone) 5 MG immediate release tabletIndicatio ns:Chronic pain syndrome,Histor y of lumbar fusion Take 2 tablets (10 mg) by mouth in the morning AND 1 tablet (5 mg) with lunch AND 2 tablets (10 mg) at bedtime. Do all this for 28 days. DNF Date: 03/27/2025 - Space dosing at least 4-6 hours. 140 tablet 03/24/20 25 025 Active pravastatin (Pravachol) 20 MG tabletIndicatio ns:Hyperlipidem ia, unspecified TAKE 1 TABLET BY MOUTH EVERY DAY 90 tablet 02/01/20 25 025 Discontinued(Re order (will not trigger notification to Pharmacy)) buPROPion SR (Wellbutrin SR) 150 MG 12 hr tabletIndicatio ns:Chronic pain syndrome TAKE 1 TABLET BY MOUTH 2 TIMES DAILY. DO NOT CRUSH, CHEW, OR SPLIT. 180 tablet 02/01/20 25 025 Discontinued(Re order (will not trigger notification to Pharmacy)) metaxalone (Skelaxin) 800 MG tabletIndicatio ns:Chronic pain syndrome TAKE 1 TABLET (800 MG) BY MOUTH IF NEEDED IN THE MORNING AND AT BEDTIME FOR MUSCLE SPASMS. 60 tablet 02/25/20 25 025 Discontinued oxyCODONE (Roxicodone) 5 MG immediate release tabletIndicatio ns:Chronic pain syndrome,Histor y of lumbar fusion Take 2 tablets (10 mg) by mouth in the morning AND 1 tablet (5 mg) with lunch AND 2 tablets (10 mg) at bedtime. Do all this for 28 days. DNF Date: 03/01/2025 - Space dosing at least 4-6 hours. 140 tablet 02/25/20 25 025 Discontinued(Re order (will not trigger notification to Pharmacy)) gabapentin (Neurontin) 600 MG tabletIndicatio ns:Fibromyalgia Take 1 tablet (600 mg) by mouth 2 times daily. DNF until 02/03/2025 60 tablet 02/25/20 25 025 Discontinued Active Problems Problem Noted [...] Encounters Date Type Department Care Team Description 03/23/[address] [address] Krystyna Bose PA-C Med Refill 03/23/[address] [address] Krystyna Bose PA-C Chronic pain syndrome; History of lumbar fusion 03/22/[address] [address] [place], [place] MACHINIST SUPERVISOR 03/22/[address] [address] Lakshmi Manzanares MD Chronic pain syndrome; Fibromyalgia; Hyperlipidemia, unspecified 03/01/[address] [address] Kaylene Echeverria CNP 02/24/[address] [address] Krystyna Bose PA-C Chronic pain syndrome; History of lumbar fusion; Fibromyalgia 02/24/[address] [address] Kaylene Echeverria, JACKELINE Chronic pain syndrome 02/03/[address] [address] Krystyna Bose PA-C Med Refill 01/31/[address] [address] Shaista Carranza FNP 01/31/[address] [address] [place], [place], MACHINIST SUPERVISOR Hyperlipidemia, unspecified; Chronic pain syndrome 01/30/2025 Rosemarie Rayn [facility] [address] [place] [address] Krystyna Bose PA-C Chronic pain syndrome; History of lumbar fusion; Fibromyalgia from Last 3 Months Immunizations Immunization Administration Dates Next Due Influenza Injectable Quadriv [...] 01/04/2025 1:43 PM EST Plan of Treatment Upcoming Encounters Date Type Department Care Team (Late st Contact Info) Description 04/10/2025 1:40 PM EDT Office Visit Den [facility] [address] [place] [address] Shaista Carranza FNP [address] [place] [address] Health Maintenance Due Date Last Done Comments [...] Zoster Vaccines (3 of 3) 06/06/2021 04/11/2021, 03/24 Colonoscopy 10/06/2021 10/06/2011 COVID-19 Vaccine ( season) 2024 02/01/2024, 09/30/2022, 12/24/2021, Additional history exists Depression Screening 12/07/2025 12/07/2024, 12/07/19 SDOH Screening 12/07/2025 12/07/2024 Tobacco Screening 01/04/2026 [...] patient's age to complete this topic Meningococcal B Vaccine Aged Out No l onger eligible based on patient's age to complete [...] Procedure Name Priority Date/Time Associated Diagnosis Comments AMB REFERRAL TO NEUROSURGERY Routine 03/06/2025 Cervical stenosis of spine LAB COLOGUARD?? COLON CANCER SCREEN Routine 09/04/2023 8:12 PM EDT Routine health maintenance PAP, LB WITH CT/GC AND HPV Routine 10/31/2022 10:55 PM EST COLONOSCOPY Routine 10/06/2011 2:33 PM EST from Last 3 Months or Most Recently Relevant to Health Maintenance Results * Referral to Neurosurgery (03/06/2025) Shaista Carranza [facility] OUTPATIENT REFERRAL ORDER ROC Final Result * Cologuard?? colon cancer screening (09/04/2023 8:12 PM EDT) Cologuard Result Negative Negative 09/11/20 5:17 AM EDT [employer] (CLIA #:[id number]) Comment: NEGATIVE TEST RESULT. A negative Cologuard [...] cancer. ??Following a negative Cologuard result, the [place] Cancer Society and U.S. Multi-Society Task Force screening guidelines recommend a Cologuard re-screening interval of 3 years. References: [place] [employer] Guideline for Colorectal Cancer Screening: https://www.cancer.org/cancer/jxmmk-syagbt-tjwotp/iknvfexne-lgreesrfv-ecuflli/ac s-rec ommendations.html.; Sarbjit DK, Veronika SRINIVASAN, Shavonne GonzálesK, Colorectal Cancer Screening: Recommendations for Physicians and Patients from the U.S. Multi-Society Task Force on Colorectal Cancer Screening , Am J Gastroenterology 2017; 112:9781-1986. TEST DESCRIPTION: Composite algorithmic analysis of stool [...] screened with both Cologuard and colonoscopy. (Lizbeth Haskins et al, N Engl J Med 2014;370(14):7493-1017.) Cologuard may produce a false negative or false positive result (no colorectal cancer or precancerous polyp present at colonoscopy follow up). A negative Cologuard test result does not guarantee the absence of CRC or advanced adenoma (pre-cancer). The current Cologuard screening interval is every 3 years. ([place] [employer] Society and U.S. Multi-Society Task Force). Cologuard performance data in a 10,000 patient pivotal study using colonoscopy as the reference method can be accessed at the following location: www.[employer]/results. Additional description of the Cologuard test process, warnings and precautions can be found at www.cologDiaphonicsrd.com. Stool specimen (specimen) 09/04/2023 8:12 PM EDT 09/07/2023 1:52 PM EDT Krystyna Bose PA-C LAB MOLECULAR DIAGNOSTICS O RDERABLES Final Result [employer] [facility] (CLIA #:[id number]) [place] [address], * PAP, LB with CT/GC and HPV (10/31/2022 10:55 PM EST) PAP, LB WITH CT/GC AND HPV Patient Name: WHITNEY ROSA [facility] Comment: Patient : ?1960 (Age: 62) Lab Accession #: ? [id number] Collection Date: ? 10/31/2022 Accession Date: ? 11/01/2022 Sign Out Date: ? 11/04/2022 Tissue Source: 1: THINPREP CUFF CUTTER PAP TEST, CERVICAL: Final Diagnosis: NEGATIVE FOR INTRAEPITHELIAL LESION OR MALIGNANCY. Satisfactory for evaluation. ??Endocervical/transformation zone present. Procedures/Addenda: Human Papilloma Virus, High-Risk (Any Dx) ? Status: Signed Out Interpretation: Negative Methodology: SeeMore Interactive Aptima HPV mRNA assay (Nucleic Acid Amplification Test, NAAT). Clinical History: Date of Last Menstrual Period: ?? not available Menstrual History: ?? not available Contraceptive History: ??not available Ancillary Testing: ??HPV (any dx) Case imaged by the [employer] Imaging System with manual rescreening or review. Clinical History (other): ??z12.4, routine screen Phone #: ??[phone], On-Call Pathologist: ??[id number] Testing performed or reported by [facility], a Service of [facility], [address] [place] [address] Celina Garcia MD, Structural Analyst [facility]# [id number] 10/31/2022 10:5 5 PM EST 11/01/2022 6:18 AM EST Krystyna Bose PA-C LAB CYTOLOGY ORDERABLES Fin al Result [facility] [address] [place] [id number] * Colonoscopy (10/06/2011 2:33 PM EST) Anatomical Region Laterality Modality Endoscopy Impressions 10/06/2011 2:33 PM EST Normal-10 yr rpt Historical Provider ENDOSCOPY PROCEDURE ORDER ROC Final Result from Last 3 Months or Most Recently Relevant to Health Maintenance Insurance , [address] [place] [address] Care Teams Assistant Banquet Manager Relationship Specialty Start Date End Date Krystyna Bose PA-C PCP - General Family Medicine 10/31/22
--- OUTSIDE RECORDS SUMMARY | 2025-04-07 13:28 | XMS_ITS | Encounter Summary ---
Author Organization [employer] Address [address] [facility] [address] [place] [address] Care Team Providers Care Straddle Bug Name Role Phone Krystyna Bose PA-C Primary Care Provider Unav ailable Reason for Visit * Reason Comments Med Refill Encounter Details Date Type Department Care Team (Late st Contact Info) Description 11/10/2024 Refill [facility] [address] [place] [address] Bharti James MD [address] [place] [address] Fibromyalgia Social History Tobacco Use Types Packs/Day [...] Description 04/10/2025 1:40 PM EDT Office Visit [facility] [address] [place], [place] [id number] Shaista Carranza FNP [address] [place] [address] documented as of this encounter Visit Diagnoses Diagnosis Fibromyalgia Unspecified myalgia and myositis documented in this encounter Care Teams Straddle Bug Relationship Specialty Start Date End Date Krystyna Bose PA-C PCP - General Family Medicine 10/31/22 documented as of this encounter
--- OUTSIDE RECORDS SUMMARY | 2025-04-07 13:28 | XMS_ITS | Encounter Summary ---
Author Organization [employer] Address [address] [facility] [address] [place] [address] Care Team Providers Care Chuck Wagon Driver Name Role Phone Krystyna Bose PA-C Primary Care Provider Unav ailable Reason for Visit * Reason Comments Med Refill Encounter Details Date Type Department Care Team ([facility] st Contact Info) Description 03/22/2025 Refill [facility] [address] [place] [address] [facility] [address] [place] [address] Social History Tobacco Use Types Packs/Day Years [...] encounter Miscellaneous Notes * Telephone Encounter - Serenity Murphy [place] - 03/22/2025 1:31 PM EDT 90 day supply ordered 3 weeks ago documented in this encounter Plan of Treatment Upcoming Encounters Date Type Department Care Team (Late st Contact Info) Description 04/10/2025 1:40 PM EDT Office Visit [facility] [address] [place] [address] Shaista Carranza FNP [address] [place] [address] documented as of this encounter Visit Diagnoses Not on filedocumented in this encounter Care Teams Chuck Wagon Driver Relationship Specialty Start Date End Date Krystyna Bose PA-C PCP - General Family Medicine 10/31/22 documented as of this encounter
--- OUTSIDE RECORDS SUMMARY | 2025-04-07 13:28 | XMS_ITS | Encounter Summary ---
Author Organization [employer] Address [address] [facility] [address] [place] [address] Care Team Providers Care Materials Supervisor Name Role Phone Krystyna Bose PA-C Primary Care Provider Unav ailable Reason for Visit * Reason Comments Med Refill Encounter Details Date Type Department Care Team (Late st Contact Info) Description 01/06/2024 Refill [facility] [address] [place] [address] Neema Lujan FNP Chronic pain syndrome Social [...] Description 04/10/2025 1:40 PM EDT Office Visit [facility] [address] [place] [address] Shaista Carranza FNP [address] [place] [address] documented as of this encounter Visit Diagnoses Diagnosis Chronic pain syndrome documented in this encounter Care Teams Materials Supervisor Relationship Specialty Start Date End Date Krystyna Bose PA-C PCP - General Family Medicine 10/31/22 documented as of this encounter
--- NOTE | 2025-04-07 13:31 | A.SPINEOV_ITS ---
Intake Visit Reasons: discuss sx Intake Note: Ms. Rosa is here today to discuss surgery. Training Development Specialist Required: No Assessment & Plan Assessment & Plan (1) Cervical myelopathy: Code(s): G95.9 - Disease of spinal cord, unspecified Category: Medical (2) Spondylolisthesis, lumbar region: Code(s): M43.16 - Spondylolisthesis, lumbar region Category: Medical Plan Mrs Rosa came back in today to review her imaging done at [facility] again into go over the procedures we have discussed over the phone. Please refer to my last note for the specifics of her problem. We have offered the patient an ACDF C4-5 to address the cervical spinal stenosis and the feelings of numbness and weakness in her arms and hands. That procedure was reviewed at length, risks, benefits and we have tentatively set a date for May 11. We also discussed her lumbar imaging showing adjacent segment disease to her previous fusion at L5-S1. She has a grade 2 spondylolisthesis at L4-[address] Noguera is willing to offer her an L4-5 oblique lumbar interbody fusion. We will have to remove her posterior instrumentation as well, and place new pedicle screws. Risks and benefits were all discussed. The patient wants to proceed b ut obviously we will address the spinal cord compression in the neck 1st. Pt was given risk and benefits of surgery including but not limited to infection, hematoma , nerve injury,durotomy, weakness,bowel/bladder injury, persistent pain, vocal hoarseness, dysphagia, adjacent segment disease as well as the option to continue with conservative treatment and patient wishes to proceed with surgery. All questions were answered to the best of our ability. If there is anything about this patients medical history that we have overlooked or concerns you have about us proceeding with surgery we would appreciate any input you can offer. Total amount of time spent in this visit was 20 minutes in discussion of symptoms, cervical and lumbar imaging results and subsequent plan of care Junito Noguera MD,PhD [facility] Coding Level of Care Code Est Pt Level 3 ([address]356) Diagnoses Cervical myelopathy G95.9 Spondylolisthesis, lumbar region M43.16
== END 2025-04-07 14:37 | disposition home or self-care (01) ==
LOC: HO.HNS 13:26
PROVIDERS: PCP Family Medicine; Visit Provider Physician Assistant
DX: G95.9 Disease of spinal cord, unspecified (principal); M43.16 Spondylolisthesis, lumbar region
CPT/HCPCS: 99213

== ENCOUNTER → 2025-04-07 13:26 | Outpatient (BNVA) | payer OTHER, SELFPAY | PROVIDERS: PCP Family Medicine; Visit Provider Physician Assistant ==

== ENCOUNTER 2025-06-01 07:46 | Day surgery (SDC) | payer OTHER, SELFPAY ==
--- OUTSIDE RECORDS SUMMARY | 2025-05-12 14:25 | XMS_ITS | Encounter Summary ---
Author Organization [employer] Address [address] [facility] [address] [place] [address] Care Team Providers Care Body Shop Mechanic Name Role Phone Krystyna Bose PA-C Primary Care Provider Unav ailable Reason for Visit * Reason Comments Med Refill Encounter Details Date Type Department Care Team (Late st Contact Info) Description 03/22/2025 Refill [facility] [address] [place] [address] [facility] [address] [place] [address] Social History Tobacco Use Types Packs/Day Years Used Date Smoking Tobacco: Every Day Cigarettes Smokeless Tobacco: Never Alcohol Use Standard Drinks/Week Comments Not Currently 0 (1 standard drink = 0.6 oz pur e alcohol) rare 1-2/year Housing Stability Answer Date Recorded What is your housing situation today? I have pati rut 12/07/[address] you li [...] the past 12 months, has t he [employer], [employer], oil or water company threatened to shut [...] Care Team (Late st Contact Info) Description 07/03/2025 11:20 AM EDT Office Visit [facility] [address] [place] [address] Shaista Carranza FNP [address] [place] [address] documented as of this encounter Visit Diagnoses Not on filedocumented in this encounter Care Teams Body Shop Mechanic Relationship Specialty Start Date End Date Krystyna Bose PA-C PCP - General Family Medicine 10/31/22 documented as of this encounter
[2025-05-25 13:06] VITALS: BP 118/58; PULSE 85; RESP 16; O2SAT 98; BMI 33.9
[2025-06-01] VITALS (15 sets, daily range): BP systolic 110–149; BP diastolic 55–89; PULSE 75–94; RESP 9–19; TEMP 36.1–36.5; O2SAT 91–96; BMI 33.4
--- NOTE | ~2025-06-01 | FL_ITS ---
EXAMINATION: FL GUIDANCE ONLY HISTORY: C4-C5 ACDF COMPARISON: Correlation is made with plain films of the cervical spine dated 03/06/2025. TECHNIQUE: Fluoroscopy time: 4.8 seconds. Cumulative Dose: 1.6845 mGy. DAP: 0.5390 mGym2 Images: 2. FINDINGS: AP and lateral fluoroscopic spot films of the cervical spine demonstrate anterior cervical disc fusion at C4-5. FL/FL guidance in OR IMPRESSION: Fluoroscopy during procedure. Please see procedure report for additional information. Electronically signed by: Raza Bush MD 06/02/2025 10:48 AM EDT
--- NOTE | 2025-06-01 07:38 | PM.DS ---
DS: Providers Provider Date of Service: 06/01/25 Date of discharge: 06/01/25 Primary care physician: CEDRICK Cisneros DS: Summary Time Attestation Discharge Coordination Time (in mins): 7 Quality: Safe Use of Opioids Does Pt have an Active Cancer Diagnosis on the Problem List?: No Quality: Stroke Does the patient have a stroke diagnosis?: No Physical Exam Vital Signs: Vital Signs: Last Vital Signs Pulse 85 05/25/25 13:06 Resp 16 05/25/25 13:06 BP 118/58 L 05/25/25 13:06 Pulse Ox 98 05/25/25 13:06 O2 Del Method Room Air 05/25/25 13:06 BMI result Body Mass Index 33.9 Discharge Plan Discharge Patient Disposition: Home, Self-Care Referrals: Shaista Carranza FNP [Primary Care Provider, Family Practice] - 1 Week Discharge Medications: Continued bupropion HCl 150 mg tablet sustained-release 12 hr 150 mg PO BID gabapentin 600 mg tablet 600 mg PO BID hydroxyzine HCl 25 mg tablet 25 mg PO BEDTIME PRN (Reason: insomnia) pravastatin 20 mg tablet 20 mg PO DAILY gabapentin 100 mg capsule 400 mg PO .@1400DAILY metaxalone 800 mg tablet 800 mg PO BID PRN (Reason: muscle spasm) fluticasone propionate 220 mcg/actuation Hfa Aerosol Inhaler 1 puff INHALATION BID Patient Comments: only takes PRN, last used last week 05/22/2025 during hot weather albuterol sulfate 90 mcg/actuation Hfa Aerosol Inhaler 2 puff INHALATION Q4-6H PRN (Reason: Shortness Of Breath Or Wheezing) oxycodone 10 mg Tablet 10 mg PO QID PRN (Reason: Pain) hxezhcehu-CQS-PA-acetaminophen 7.5-60-30-1,000 mg/30 mL Liquid PO BEDTIME Discharge Orders: Discharge Order (Routine); Ordered 06/01/25 Ordered By: Junito Golden Diet: Advance to usual diet Activity on Discharge: As tolerated Activity Restrictions/Additional Instructions: After your spinal surgery we ask you to observe the following restrictions/guidelines: Activity: It is normal to feel some discomfort as you increase your activity, but that will improve with time. We ask you avoid heavy lifting or acitivities that cause pain. As a general rule, 8lbs is a safe limit for lifting right after surgery. Walk as much as you feel comfortable but not to exhaustion. You will feel extra tired the first few days after surgery. Stay well hydrated. It is OK to walk up and down stairs You may return to driving when you are off narcotics (such as vicodin, oxycodone, dilaudid, etc), and you are back to normal functional capacity. If you have any concerns please check with office before driving. Return to work is specific to each patient and each surgery, so please speak with your doctor/PA at first follow up. Please bring paperwork such as FMLA at that time if you need it filled out. Medications: For optimum pain control, it is best to start with a combination of 500 mg of Tylenol every 4 hours with 600 mg of Motrin every 8 hours, and use narcotics as needed in between for breakthrough pain. We will give you a short supply of narcotics after surgery (usually one weeks worth). If you need more please call the office but do not use more than prescribed. You will need to give our office 48 hours notice if you need narcotics refilled and we do not fill narcotics on weekends or evenings. If you are on a narcotic, it is a good idea to take a stool softener such as colace or senna to avoid constipation If you take blood thinner such as aspirin, Plavix, Coumadin, Effient, Eliquis etc for conditions such as Afib, DVT, Pulmonary embolus, coronary disease, stents etc please speak with your surgeon about specific details as to when you can resume these medications. You can resume NSAIDs on post op day 1 (eg: Motrin, Naproxen, etc). Follow up: Please call the office, , after surgery to arrange a 3 week follow up for wound check. Wound Care: You may remove your dressing on the first day after surgery. ?You may ?leave open to air. Please do not remove the steri strips underneath. they will fall off on their own in one week. IT IS NORMAL FOR THE WOUND TO OOZE OR BE BLOODY FOR A FEW DAYS AFTER SURGERY. ?IF THIS HAPPENS JUST PLACE NEW DRESSING OVER IT TO AVOID STAINING CLOTHES. You may shower on post op day # 1 We ask that you do not let the water soak the wound. If it does get wet, just towel dry lightly. Please do not scrub your incision or place any type of chemical/ointment on the wound. No tub baths, pools or jacuzzis for one month. If you have any leaking or redness from your wound, or fevers, please call office Print Language: Australian
--- NOTE | 2025-06-01 08:49 | P.HPSUR_ITS ---
Pre-Procedural Eval Section A - 24 Hr Update-Section A only Date of Service: 06/01/25 The patient is an INPATIENT: No Section B - Complete if H&P > 30 days Chief Complaint: Disease of spinal cord, unspecified Details of Present Illness: Cervical myelopathy Allergies: Allergies Allergy/AdvReac Type Severity Reaction Status Date / Time amoxicillin Allergy Intermediate Rash Verified 05/25/25 13:18 erythromycin base AdvReac Intermediate Gastrointestinal Verified 05/25/25 13:18 Upset Review of Systems Sugical H&P ROS: Negative: Constitution, Cardiovascular, Respiratory, Neurological, Psychiatric, Hem-Onc, Allergic/Immunologic, Gastrointestinal, Genitourinary, Musculoskeletal, Integumentary, Endocrine and Eyes/Ears/Nose/T hroat Exam Surgical H&P Exam: Normal: HEENT, Normal: Heart, Normal: Lungs, Normal: Extremities, Normal: Abdomen, Normal: Skin and Normal: Neurological (Awake, alert) Plan . Anterior diskectomy and fusion C4-5 Time Spent With Patient Time: Total time managing care of this patient today ____ minutes.
[2025-06-01] MEDS: Lactated Ringers 1,000 ML 100 ML IVCONT (08:57)
--- NOTE | 2025-06-01 09:00 | HO.ANESPROP2 ---
Documented by User: Ellen Marie NP 05/30/25 14:24 HPI - Anesthesia Eval Consult details Narrative: 64yo F for C4-5 Ant Cerv Discectomy w/ fusion Medically optimized per PCP PMFSH Active Problems Active Problems: All Active Problems (Updated 05/25/25 @ 14:16 by Janell Segovia, BARRY) Spondylolisthesis, lumbar region (Acute) Cervical myelopathy (Acute) Past Medical History Medical History (Updated 05/25/25 @ 14:16 by Janell Segovia RN) Hx of bad fall Chronic prescription opiate use Chronic pain disorder Smoker Arthritis Back pain Hx of head injury (~1978) History of seizure (~1978) Edema COPD (chronic obstructive pulmonary disease) Muscle spasm Insomnia HLD (hyperlipidemia) Fibromyalgia Sleep disturbances HTN (hypertension) Low back pain Neck pain Surgical History Surgical History (Updated 05/25/25 @ 13:35 by Janell Segovia RN) Hx of colonoscopy History of loop electrical excision procedure (LEEP) History of back surgery (~1992) Social History Social History (Updated 05/25/25 @ 14:24 by Janell Segovia RN) Are you a primary rn complex care to a significant other at home: No Do you presently have visiting nurse or other home services: No Patient Tobacco Use Status: Current everyday Tobacco user Tobacco use type: Cigarette Cigarettes Per Day: 10 Years Smoked: 46 Smoked in Last 30 Days: Yes Second Hand Smoke Exposure: No Use of substances other than those prescribed or required for medical reasons: Yes Substance Use Frequency: Occasionally Have you been hit, kicked, punched, or otherwise hurt by someone within the past year? If so, by whom?: No Are you DNR?: No Advance Directives: No Advance Directives Information Provided: Yes Advance Directives on File: No Poor oral hygiene: Yes (full dentures) Meds Allergies Allergy/AdvReac Type Severity Reaction Status Date / Time amoxicillin Allergy Intermediate Rash Verified 05/25/25 13:18 erythromycin base AdvReac Intermediate Gastrointestinal Verified 05/25/25 13:18 Upset Home Medications ?Medication ?Instructions ?Recorded ?Confirmed ?Last Taken ?Type bupropion HCl 150 mg tablet,12 hr 150 mg PO BID 05/24/25 05/24/25 Unknown History sustained-release gabapentin 100 mg capsule 400 mg PO .@1400DAILY 05/24/25 05/25/25 Unknown History gabapentin 600 mg tablet 600 mg PO BID 05/24/25 05/24/25 Unknown History hydroxyzine HCl 25 mg tablet 25 mg PO BEDTIME PRN insomnia 05/24/25 05/24/25 Unknown History metaxalone 800 mg tablet 800 mg PO BID PRN muscle spasm 05/24/25 05/24/25 Unknown History pravastatin 20 mg tablet 20 mg PO DAILY 05/24/25 05/24/25 Unknown History albuterol sulfate 90 mcg/actuation 2 puff inhalation Q4-6H PRN 05/25/25 05/25/25 Unknown History aerosol inhaler Shortness Of Breath Or Wheezing [id number]-[id number]-TK-acetaminophen 7.5 ml PO BEDTIME 05/25/25 Unknown History mg-60 [id number]/30mL oral liqd fluticasone propionate 220 1 puff inhalation BID 05/25/25 05/25/25 Unknown History mcg/actuation HFA aerosol inhaler oxycodone 10 mg tablet 10 mg PO QID PRN Pain 05/25/25 05/25/25 06/01/25 07:00 History Exam Height,Weight and Vital Signs: Height 5 ft 1.75 in Weight 83.4 kg Last Vital Signs Pulse 85 05/25/25 13:06 Resp 16 05/25/25 13:06 BP 118/58 L 05/25/25 13:06 Pulse Ox 98 05/25/25 13:06 O2 Del Method Room Air 05/25/25 13:06 Pertinent Lab Results Pertinent Lab Results: CBC and CMP 05/2025 WNL Narrative Narrative: EKG 2024 SR @ 77 LAD Low volt QRS ECHO 2022 Nml LV size and wall thickness LV sys function nml with EF 60-65%. No clear WMA Nml diastolic function Nml RV size and function No hemodynamically stable signif valve disease Assessment and Plan Assessment Anesthesia Assessment: Chart Reviewed Documented by User: Gracia Milner DO 06/01/25 09:02 [facility] Past Medical History Medical History (Updated 05/25/25 @ 14:16 by Janell Segovia RN) Hx of bad fall Chronic prescription opiate use Chronic pain disorder Smoker Arthritis Back pain Hx of head injury (~1978) History of seizure (~1978) Edema COPD (chronic obstructive pulmonary disease) Muscle spasm Insomnia HLD (hyperlipidemia) Fibromyalgia Sleep disturbances HTN (hypertension) Low back pain Neck pain Family History Family history of problems with anesthesia: No Surgical History Surgical History (Updated 05/25/25 @ 13:35 by Janell Segovia RN) Hx of colonoscopy History of loop electrical excision procedure (LEEP) History of back surgery (~1992) History of Problems with Anesthesia: No Social History Social History (Updated 05/25/25 @ 14:24 by Janell Segovia RN) Are you a primary rn complex care to a significant other at home: No Do you presently have visiting nurse or other home services: No Patient Tobacco Use Status: Current everyday Tobacco user Tobacco use type: Cigarette Cigarettes Per Day: 10 Years Smoked: 46 Smoked in Last 30 Days: Yes Second Hand Smoke Exposure: No Use of substances other than those prescribed or required for medical reasons: Yes Substance Use Frequency: Occasionally Have you been hit, kicked, punched, or otherwise hurt by someone within the past year? If so, by whom?: No Are you DNR?: No Advance Directives: No Advance Directives Information Provided: Yes Advance Directives on File: No Poor oral hygiene: Yes (full dentures) Meds Allergies Allergy/AdvReac Type Severity Reaction Status Date / Time amoxicillin Allergy Intermediate Rash Verified 05/25/25 13:18 erythromycin base AdvReac Intermediate Gastrointestinal Verified 05/25/25 13:18 Upset Home Medications ?Medication ?Instructions ?Recorded ?Confirmed ?Last Taken ?Type bupropion HCl 150 mg tablet,12 hr 150 mg PO BID 05/24/25 05/24/25 Unknown History sustained-release gabapentin 100 mg capsule 400 mg PO .@1400DAILY 05/24/25 05/25/25 Unknown History gabapentin 600 mg tablet 600 mg PO BID 05/24/25 05/24/25 Unknown History hydroxyzine HCl 25 mg tablet 25 mg PO BEDTIME PRN insomnia 05/24/25 05/24/25 Unknown History metaxalone 800 mg tablet 800 mg PO BID PRN muscle spasm 05/24/25 05/24/25 Unknown History pravastatin 20 mg tablet 20 mg PO DAILY 05/24/25 05/24/25 Unknown History albuterol sulfate 90 mcg/actuation 2 puff inhalation Q4-6H PRN 05/25/25 05/25/25 Unknown History aerosol inhaler Shortness Of Breath Or Wheezing idnbrafda-FJK-OQ-acetaminophen 7.5 ml PO BEDTIME 05/25/25 Unknown History mg-60 [id number]/30mL oral liqd fluticasone propionate 220 1 puff inhalation BID 05/25/25 05/25/25 Unknown History mcg/actuation HFA aerosol inhaler oxycodone 10 mg tablet 10 mg PO QID PRN Pain 05/25/25 05/25/25 06/01/25 07:00 History Exam Exam Date and Time: 06/01/25 0900 Height,Weight and Vital Signs: Vital Signs Pulse Rate 85 05/25/25 13:06 Respiratory Rate 16 05/25/25 13:06 Blood Pressure 118/58 L 05/25/25 13:06 Pulse Oximetry 98 05/25/25 13:06 Oxygen Delivery Method Room Air 05/25/25 13:06 Temperature 97.7 F 06/01/25 08:28 Pulse Rate 78 06/01/25 08:28 Respiratory Rate 16 06/01/25 08:28 Blood Pressure 122/66 06/01/25 08:28 Pulse Oximetry 96 06/01/25 08:28 Oxygen Delivery Method Room Air 06/01/25 08:28 Height 5 ft 1.75 in Weight 83.4 kg Last Vital Signs Pulse 85 05/25/25 13:06 Resp 16 05/25/25 13:06 BP 118/58 L 05/25/25 13:06 Pulse Ox 98 05/25/25 13:06 O2 Del Method Room Air 05/25/25 13:06 Airway Mallampati Class: I TM Dist: <=3cm Neck ROM: Full Denture: Upper and Lower Heart: S1S2 Lungs: CTAB Assessment and Plan Assessment Anesthesia Assessment: Anesthesia Plan Discussed and Chart Reviewed Final Anesthetic Review Family History of Problems with Anesthesia: No History of Problems with Anesthesia: No NPO: Yes ASA Class: III Final Preanesthetic Review: No Changes in Pt Med Stat, Meds/Allgs Chart Reviewed, Consent Obtained/Reviewed and Anes Risks/Benef Reviewed Patient Risk: Intermediate Procedure Risk: Intermediate Anesthetic Plan Anesthetic Plan: GA and Agree w/ Assess. and Plan Disposition: Standard PACU
--- NOTE | 2025-06-01 11:06 | W.PM.OPN ---
Operative Note Operative Note Date of Service: 06/01/25 Narrative: Preoperative Diagnosis: Cervical myelopathy Procedure: C4-C5 Anterior discectomy, arthrodesis and implantation cage ; C4-C5 anterior instrumentation ; local autograft; microscope Informed Consent was obtained for this operation. I have explained the nature, purpose and benefits of the operation. I have discussed the risks and benefit of the operation including possible complications or adverse events with patient/family. Alternative(s) were discussed with the patient with their relative benefits and risks as well as the consequences of not accepting the operation were included in obtaining consent. Surgeon: LYNNE MARTINEZ MD, PHD Procedure Assisted By: goran San Description of Procedure: This patient is suffering from cervical myelopathy. MRI shows severe spinal cord compression at C4-C5 with myelomalacia. She was offered an anterior diskectomy and fusion of this level. The procedure complications were explained. The patient was consented. The patient was brought to the operating room and endotracheally intubated. The patient was put in supine position with slight extension of the neck. Prep and drape was done followed by timeout. A mid cervical incision was made followed by opening of the platysma. The prevertebral fascia was reached following the natural planes while the physician physical therapy assistant provided manual retraction. The prevertebral fascia was opened to expose the disc space. A spinal needle was placed in the disk space to confirm the correct level with xray. The longus colli muscles were released bilaterally and a self retaining retractor was inserted. Two Posen pins were placed in the C4 and C5 vertebral bodies and distraction was give over the interspace. The discectomy was completed toward the posterior annulus of the disc. The microscope was brought in. The remainder of the discectomy was completed. First a large posterior osteophyte was resected from the body of C4 to expose the underlying posterior longitudinal ligament and safe for autograft. The posterior ligament was opened and resected to expose the underlying dura. More osteophytes were resected from the body of C4 and C5 and saved for autograft to decompress the spinal cord. Bilateral foraminotomies were done. The endplates were prepared after which a 6 mm cage filled with autograft was inserted into the disc space. A separate attached plate was locked down with 2 x 14 mm screws as anterior instrumentation. Final x-rays in AP and lateral projection showed a satisfactory position of the implant. The physician physical therapy assistant took over. The Posen pin was removed. Hemostasis was done. He closed the incision in 2 layers with a 3-0 Vicryl. Steri-Strips used to approximate incision. An OpSite with Tegaderm was used to cover the incision. All sponge and needle counts were correct. Patient was extubated and transported in stable is to recovery room. Anesthesia: General Estimated Blood Loss (ml): 20 Duration of Surgery: 60 minutes Postoperative Plan: Discharge home Complications: None
[2025-06-01] MEDS: oxyCODONE HCl Immed Release 5 MG TABLET PO (11:55)
== END 2025-06-01 13:29 | disposition home or self-care (01) ==
LOC: HO.SSS 07:47
PROVIDERS: PCP Nurse Practitioner Family; Visit Provider Neurological Surgery
PROC: (CPT 22551; principal; 2025-06-01 10:30)
DX: M50.021 Cervical disc disorder at C4-C5 level with myelopathy (principal); G89.29 Other chronic pain; G95.89 Other specified diseases of spinal cord; G95.20 Unspecified cord compression; G47.9 Sleep disorder, unspecified; M79.7 Fibromyalgia; M62.838 Other muscle spasm; Z91.81 History of falling; I10 Essential (primary) hypertension; E78.5 Hyperlipidemia, unspecified; R56.9 Unspecified convulsions; J44.9 Chronic obstructive pulmonary disease, unspecified; Z79.51 Long term (current) use of inhaled steroids; Z79.899 Other long term (current) drug therapy; Z79.891 Long term (current) use of opiate analgesic; Z88.1 Allergy status to other antibiotic agents; Z87.828 Personal history of other (healed) physical injury and trauma; Z98.890 Other specified postprocedural states; F17.210 Nicotine dependence, cigarettes, uncomplicated
CPT/HCPCS: 22551; 22853; 20936; 22845; C1713; C1889; J0131; J1100; J1171; J2003; J2250; J2405; J2704; J3010; J3374

== ENCOUNTER → 2025-06-01 07:46 | Outpatient (BNV) | payer OTHER, SELFPAY | PROVIDERS: PCP Nurse Practitioner Family; Visit Provider Neurological Surgery | DX: M50.021 Cervical disc disorder at C4-C5 level with myelopathy (principal) | CPT/HCPCS: 20936; 22551; 22845; 22853; 99499 ==

== ENCOUNTER 2025-07-03 14:44 | Outpatient (AMB) | payer OTHER, SELFPAY ==
--- OUTSIDE RECORDS SUMMARY | 2025-07-03 15:08 | XMS_ITS | Clinical Summary ---
Author Organization [facility] Address [address] [place], [place] [id number] Phone Care Team Providers Care Metal Grader Name Role Phone Meron Villalobos MD Primary Care Provider [phone] Allergies Active Allergy Reactions Criticality Noted Date Comments Amoxicillin Rash Low 03/25/2021 Erythromycin GI Upset 03/25/2021 Procaine Pain Low 03/25/2021 Medications oxyCODONE 5 MG immediate release tablet Take 5 mg by mouth every 4 (four) hours as needed. Active hydroCHLOROthia zide (HYDRODIURIL) 25 MG tablet Take 25 mg by mouth daily. Active buPROPion (WELLBUTRIN SR) 150 MG SR 12 hr tablet Take 150 mg by mouth 2 (two) times a day. Active pravastatin (PRAVACHOL) 20 MG tablet Take 20 mg by mouth daily. Active albuterol 90 mcg/actuation inhaler Inhale 2 puffs into the lungs every 4 (four) hours as needed. Active lidocaine (LIDODERM) 5 % Place 1 patch onto the skin daily. Remove & Discard patch within 12 hours or as directed by MD Active fluticasone propionate (FLOVENT HFA) 220 mcg/actuation inhaler Inhale 1 puff into the lungs 2 (two) times a day. Active loratadine (CLARITIN) 10 mg tablet Take 10 mg by mouth daily. Active metaxalone (SKELAXIN) 800 MG tablet Take 800 mg by mouth 4 (four) times a day as needed. Active gabapentin (NEURONTIN) 300 MG capsule Take 300 mg by mouth 2 (two) times a day. Active Immunizations Immunization Administration Dates Next Due INFLUENZA, SPLIT VIRUS, TRIVALENT W/ PRESERVATIV E IM 09/17/2020 Influenza Quadrivalent Preservative Free IM 08/24 Family History Medical History Relation Comments Emphysema Father Emphysema Maternal Grandfather Emphysema Maternal Uncle Relation Status Comments Father Maternal Grandfather Maternal Uncle Social History Tobacco Use Types Packs/Day Years Used Date Smoking Tobacco: Every Day Cigarettes Alcohol Use Standard Drinks/Week Comments Yes 0 (1 standard drink = 0.6 oz pur e alcohol) Education Answer Date Recorded Are you interested in more education? Not on shaun e 03/20/2023 Are you concerned about learning? Not on file 03/20/2023 No 03/20/2023 No 03/20/2023 Digital Access Answer Date Recorded No 04/18/2023 No 04/18/2023 No 04/18/2023 Reliable internet access at home? Not on file 04/18/2023 Device with a working camera? Not on file Comments Unknown Sex and Gender Information Value Date Recorded Sex Assigned at Not on file Legal Sex Female 9:48 PM EDT Gender Identity Not on file Sexual Orientation Not on file Last Filed Vital Signs Vital Sign Reading Time Taken Comments Blood Pressure - - Pulse - - Temperature - - Respiratory Rate - - Oxygen Saturation - - Inhaled Oxygen Concentration - - Weight 81.6 kg (180 lb) 01/05/2025 9:14 AM EST Height 154.9 cm (5' 1 ) 01/05/2025 9:14 AM EST Body Mass Index 34.01 01/05/2025 9:14 AM EST Plan of Treatment Health Maintenance Due Date Last Done Comments POTASSIUM LEVEL 1960 DEPRESSION SCREENING 1972 SMOKING Hx and SMOKELESS TOBACCO SCREENING 1973 HEPATITIS C SCREENING 1978 HIV ONE-TIME SCREENING (18-6 5 YEARS) 1978 PAP SMEAR 1981 SCREENING FOR DIABETES 1995 MAMMOGRAM 2000 COLOGUARD 2005 COLONOSCOPY 2005 COLORECTAL CANCER SCREENING 2005 FIT TEST 2005 FOBT 2005 SIGMOIDOSCOPY 2005 VIRTUAL COLONOSCOPY 2005 PNEUMOCOCCAL VACCINES (50+ years) (2 of 2 - PCV) 09/20/2009 09/20/2008 ZOSTER VACCINES (2 of 2) 06/06/2021 04/11/2021 COVID-19 VACCINE (3 - 2023-2 5 season) 2024 02/21/2021, 01/31/2021 LIPID PANEL 08/19/2024 08/19/2019 Adult Td,Tdap Booster 10/31/2032 10/31/2022 , 05/08/2011 RSV VACCINE (1 - 1-dose 75+ series) 2035 HEPATITIS A VACCINES Aged Out No long er eligible based on patient's age to complete this topic HIB VACCINES Aged Out No longer eligi ble based on patient's age to complete this topic MENINGOCOCCAL VACCINES (ACWY) Aged Out No longer eligible based on patient's age to complete this topic MENINGOCOCCAL VACCINES (B) Aged Out N o longer eligible based on patient's age to complete this topic Medical Devices Not on file Insurance [place] [address] [place] [address] [address] [place] [address] [address] [place] [address] [place] [address] [place] [address] HMO Care Teams Metal Grader Relationship Specialty Start Date End Date Meron Villalobos MD PCP - General 09/07/17 Additional Source Comments The information contained in this document represents components of the legal health record. It is not the complete legal health record.[facility]
--- OUTSIDE RECORDS SUMMARY | 2025-07-03 15:08 | XMS_ITS | Encounter Summary ---
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
--- NOTE | 2025-07-03 15:26 | HO.SPINEOV ---
Intake Visit Reasons: 1st post op Intake Note: Ms. Rosa is here today for her 1st post-op visit. Line Up Examiner Required: No Allergies amoxicillin Allergy (Intermediate, Verified 05/25/25 13:18) Rash erythromycin base Adverse Reaction (Intermediate, Verified 05/25/25 13:18) Gastrointestinal Upset Assessment & Plan Assessment & Plan (1) Cervical myelopathy: Code(s): G95.9 - Disease of spinal cord, unspecified Category: Medical Plan Procedure: C4-5 ACDF Whitney is a pleasant 64-year-old female comes in today for her 1st postoperative visit after having a C4-[address] Noguera a few weeks ago. To recap she was initially evaluated in clinic for neck pain and bilateral upper extremity numbness. She reports that she has felt overall very good since her procedure. She still has some posterior neck pain, feels her neck pain overall has improved significantly. In addition to this she still reports low-grade numbness of her bilateral upper extremities but also feels this has from her since her surgery. She reports she has been completing her activities of daily living without much issue, and is otherwise well. No new neurological deficits. The patient ambulates well and rises from a seated position without difficulty. Her anterior incision site is closed and well healing. I would like to follow up with Whitney again in 6 weeks for his 2nd postoperative visit with a set of x-rays. She would like to discuss her lumbar spine concerns after her next visit. Jong Noguera MD,PhD [facility] Coding Level of Care Code Global (53616) Diagnoses Cervical myelopathy G95.9
== END 2025-07-03 15:46 | disposition home or self-care (01) ==
LOC: HO.HNS 14:44
PROVIDERS: PCP Nurse Practitioner Family; Visit Provider Physician Assistant
DX: G95.9 Disease of spinal cord, unspecified (principal)
CPT/HCPCS: 99024

== ENCOUNTER 2025-08-23 11:54 | Outpatient (REF) | payer OTHER, SELFPAY ==
--- NOTE | ~2025-08-23 | XR_ITS ---
EXAMINATION: XR CERVICAL SPINE 4-5 VIEWS HISTORY: G95.9 - Disease of spinal cord, unspecified COMPARISON: Comparison is made with the prior examination dated 03/06/2025. FINDINGS: AP, and neutral, flexion, and extension lateral views of the cervical spine are submitted. Osseous mineralization is normal. The patient is status post anterior cervical disc fusion at C4-5 since the prior study. The hardware is intact. Seven cervical vertebral bodies are identified maintaining normal height without evidence of fracture. There is moderate degenerative disc disease at C5-6 and C6-7 with disc space narrowing and osteophyte formation. There is anterolisthesis of C7 on T1 measuring approximately 4 mm. This does not change with flexion or extension. There is no prevertebral soft tissue swelling. XR/XR cervical spine 4V IMPRESSION: 1. Status post anterior cervical disc fusion at C4-5. 2. Moderate degenerative disc disease. 3. Anterolisthesis of C7 on T1 which does not change with flexion or extension. Electronically signed by: Raza Bush MD 08/23/2025 02:05 PM EDT
--- OUTSIDE RECORDS SUMMARY | 2025-08-24 13:37 | XMS_ITS | Encounter Summary ---
Author Organization [facility] Address [address] [address] Phone Care Team Providers Care Middleware Systems Architect Name Role Phone Meron Villalobos MD Primary Care Provider +1- [phone] Encounter Details Date Type Department Care Team (Latest Contact Info) Description 11/04/2022 Transcribe Orders Virtual Department 30 [place] [address] Krystyna Bose PA [address] [place] [address]. [place] [address] [email or web address] Breast screening (Primary Dx) Social History [...] unspecified documented in this encounter Care Teams Middleware Systems Architect Relationship Specialty Start Date End Date Meron Villalobos MD PCP - General 09/07/17 documented as of this encounter Additional Source Comments The information contained in this document represents components of the legal health record. It is not the complete legal health record.[facility]
--- OUTSIDE RECORDS SUMMARY | 2025-08-24 13:37 | XMS_ITS | Encounter Summary ---
Author Organization [employer] Address [address] [facility] 7t [place] [address] Care Team Providers Care Warm In Name Role Phone Krystyna Bose PA-C Primary Care Provider Unav ailable Pcp, Den Unassigned Primary Care Provider U navailable Encounter Details Date Type Department Care Team (Late st Contact Info) Description 05/17/[address] [facility] [address] [place] [address] Shaista Carranza FNP [address] [place] [address] Routine health maintenance (Primary Dx) Social History [...] Agency Comment Performed at: 01 - [facility] [address] [id number] Etcher Apprentice: Holly Son MD, Phone: [phone] Shaista [place] PROCESS CHEMIST LAB BLOOD ORDERABLES Koki l Result [facility] [...] Agency Comment Performed at: 01 - [facility] [address] [id number] Etcher Apprentice: Holly Son MD, Phone: [phone] Shaista [facility] LAB BLOOD ORDERABLES Koki de la vega Result [facility] 1 documented in this encounter Visit Diagnoses Diagnosis Routine health maintenance- Primary Unspecified examination documented in this encounter Care Teams Warm In Relationship Specialty Start Date End Date Krystyna Bose PA-C PCP - General Family Medicine 10/31/22 08/23/25 Den Hernandez Unassigned PCP - General Family Medicine 08/24/25 documented as of this encounter
--- OUTSIDE RECORDS SUMMARY | 2025-08-24 13:37 | XMS_ITS | Encounter Summary ---
Author Organization [facility] Address [address] [place], [place] [address] Phone Care Team Providers Care Resin Mixer Name Role Phone Meron Villalobos MD Primary Care Provider +1- [phone] Reason for Referral * MRI/CAT Scan - Closed Specialty Diagnoses / Procedures Referred By Contac t Referred To Contact Radiology Diagnoses Chronic pain syndrome Procedures MRI Lumbar Spine CHG MRI, LUMBAR SPINE Shaista Carranza CNP Phone: tel: fax: Referral ID Status Reason Start Date Expiration Date Visits Re quested Visits Authorized [id number] Closed 12/08/2024 02/06/2025 1 1 * MRI/CAT Scan - Closed Specialty Diagnoses / Procedures Referred By Contac t Referred To Contact Radiology Diagnoses Chronic pain syndrome Procedures MRI Thoracic Spine CHG MRI, DORSAL SPINE Shaista Carranza CNP Phone: tel: fax: Referral ID Status Reason Start Date Expiration Date Visits Re quested Visits Authorized [id number] Closed 12/08/2024 02/06/2025 1 1 * MRI/CAT Scan - Closed Specialty Diagnoses / Procedures Referred By Contac t Referred To Contact Radiology Diagnoses Chronic pain syndrome Procedures MRI Cervical Spine CHG MRI, CERV SPINE Shaista Carranza CNP Phone: tel: fax: Referral ID Status Reason Start Date Expiration Date Visits Re quested Visits Authorized [id number] Closed 12/08/2024 02/06/2025 1 1 Encounter Details Date Type Department Care Team (Latest Contact Info) Description 12/08/2024 Transcribe Orders Virtual Department 30 [place] [address] Shaista Carranza, JACKELINE [address] [place] [address] Chronic pain syndrome (Primary Dx) Social History [...] neural foraminal narrowing at L4-5. Shaista Carranza [facility] MR XSPECIALTY Final Result * MRI THORACIC [...] neural foraminal narrowing at L4-5. Shaista Carranza [facility] IMG MR XSPECIALTY Final Result * [...] neural foraminal narrowing at L4-5. [facility] Final Result documented in this encounter Visit Diagnoses Diagnosis Chronic pain syndrome- Primary Chronic pain syndrome documented in this encounter Care Teams Resin Mixer Relationship Specialty Start Date End Date Meron Villalobos MD [email or web address] PCP - General 09/07/17 documented as of this encounter Additional Source Comments The information contained in this document represents components of the legal health record. It is not the complete legal health record.[facility]
--- OUTSIDE RECORDS SUMMARY | 2025-08-24 13:37 | XMS_ITS | Encounter Summary ---
Author Organization [facility] Address [address] [facility] [address] [place] [address] Phone Care Team Providers Care Secretary Of Police Name Role Phone Meron Villalobos MD Primary Care Provider +1- [phone] Encounter Details Date Type Department Care Team (Latest Contact Info) Description 12/24/2020 Transcribe Orders Virtual Department 30 [place] [address] [facility], TOMAS [address] [place] [address] [email or web address] Heavy smoker (Primary Dx) Social History [...] Primary documented in this encounter Care Teams Secretary Of Police Relationship Specialty Start Date End Date Meron Villalobos MD PCP - General 09/07/17 documented as of this encounter Additional Source Comments The information contained in this document represents components of the legal health record. It is not the complete legal health record.[facility]
--- OUTSIDE RECORDS SUMMARY | 2025-08-24 13:37 | XMS_ITS | Encounter Summary ---
Author Organization [facility] Address [address] [place] [address] [place] [address] Phone Care Team Providers Care Asset Card Clerk Name Role Phone Meron Villalobos MD Primary Care Provider +1- [phone] Reason for Referral * Outpatient Procedure - Closed Specialty Diagnoses / Procedures Referred By Ping galindo Referred To Contact Radiology Diagnoses Shortness of breath Procedures Adult Echo TTE Krystyna Bose PA [address] [place] [address] Phone: tel: fax: [email or web address] Referral ID Status Reason Start Date Expiration Date Visits Re quested Visits Authorized [id number] Closed 02/13/2023 1 1 Encounter Details Date Type Department Care Team (Latest Contact Info) Description 02/13/2023 Transcribe Orders Virtual Department 30 [place] [address] Krystyna Bose PA [address] [place] [address]. [place] [address] [email or web address] Shortness of breath Social History Tobacco [...] breath documented in this encounter Care Teams Asset Card Clerk Relationship Specialty Start Date End Date Meron Villalobos MD [email or web address] PCP - General 09/07/17 documented as of this encounter Additional Source Comments The information contained in this document represents components of the legal health record. It is not the complete legal health record.[facility]
--- OUTSIDE RECORDS SUMMARY | 2025-08-24 13:37 | XMS_ITS | Encounter Summary ---
Author Organization [facility] Address [address] [place] [address] Phone Care Team Providers Care Heavy Rail Train Operator Name Role Phone Meron Villalobos MD Primary Care Provider +1- [phone] Encounter Details Date Type Department Care Team (Late st Contact Info) Description 12/08/2024 Procedure Pass [facility], [address] [address] Social History Tobacco Use Types Packs/Day Years [...] on filedocumented in this encounter Care Teams Heavy Rail Train Operator Relationship Specialty Start Date End Date Meron Villalobos MD PCP - General 09/07/17 documented as of this encounter Additional Source Comments The information contained in this document represents components of the legal health record. It is not the complete legal health record.[facility]
--- OUTSIDE RECORDS SUMMARY | 2025-08-24 13:37 | XMS_ITS | Encounter Summary ---
Author Organization [facility] Address [address] [place] [address] Phone Care Team Providers Care Ticket Maker Name Role Phone Meron Villalobos MD Primary Care Provider +1- [phone] Encounter Details Date Type Department Care Team (Late st Contact Info) Description 12/08/2024 Procedure Pass [facility], [address] [address] Social History Tobacco Use Types Packs/Day Years [...] on filedocumented in this encounter Care Teams Ticket Maker Relationship Specialty Start Date End Date Meron Villalobos MD PCP - General 09/07/17 documented as of this encounter Additional Source Comments The information contained in this document represents components of the legal health record. It is not the complete legal health record.[facility]
--- OUTSIDE RECORDS SUMMARY | 2025-08-24 13:37 | XMS_ITS | Encounter Summary ---
Author Organization [facility] Address [address] [place] [address] Phone Care Team Providers Care Teleprinter Name Role Phone Meron Villalobos MD Primary Care Provider +1- [phone] Encounter Details Date Type Department Care Team (Latest Contact Info) Description 02/02/2024 Transcribe Orders Virtual Department [address] [place] [address] Krystyna Bose PA [address] [place] [address]. [place] [address] [email or web address] Cigarette smoker (Primary Dx) Social History [...] disorder documented in this encounter Care Teams Teleprinter Relationship Specialty Start Date End Date Meron Villalobos MD [email or web address] PCP - General 09/07/17 documented as of this encounter Additional Source Comments The information contained in this document represents components of the legal health record. It is not the complete legal health record.[facility]
--- OUTSIDE RECORDS SUMMARY | 2025-08-24 13:37 | XMS_ITS | Encounter Summary ---
Author Organization [facility] Address [address] [place] [address] Phone Care Team Providers Care Bookkeeper Name Role Phone Meron Villalobos MD Primary Care Provider +1- [phone] Encounter Details Date Type Department Care Team (Late st Contact Info) Description 12/08/2024 Procedure Pass [facility], [address] [address] Social History Tobacco Use Types Packs/Day Years [...] on filedocumented in this encounter Care Teams Bookkeeper Relationship Specialty Start Date End Date Meron Villalobos MD PCP - General 09/07/17 documented as of this encounter Additional Source Comments The information contained in this document represents components of the legal health record. It is not the complete legal health record.[facility]
--- OUTSIDE RECORDS SUMMARY | 2025-08-24 13:37 | XMS_ITS | Clinical Summary ---
Author Organization [employer] Address [address] [place] [address] 7 [place] [address] Care Team Providers Care Grain Drier Operator Name Role Phone PcpDen Unassigned Primary Care Provider U navailable Allergies Active Allergy Reactions Criticality Noted Date [...] Department Care Team Description 07/27/2025 Refill Den [facility] [address] [place] [address] Krystyna Bose PA-C Chronic pain syndrome; History of lumbar fusion; Fibromyalgia 07/04/2025 Refill [facility] [address] [place] [address] Shaista Carranza FNP Fibromyalgia; Chronic pain syndrome 07/04/[address] [address] Shaista Carranza FNP Fibromyalgia 07/04/[address] [address] Krystyna Bose PA-C Med Refill 07/03/2025 11:20 AM EDT Office Visit [facility] [address] [place] [address] Shaista Carranza FNP Chronic pain syndrome; History of lumbar fusion 06/08/[address] [address] Shaista Carranza FNP Fibromyalgia; Chronic pain syndrome 06/07/[address] [address] Krystyna Bose PA-C Post-op pain; Chronic pain syndrome; History of lumbar fusion 05/25/2025 Results Follow-Up [facility] [address] [place] [address] Frontiero Aleksandra, GROUND SUPPORT AGENT CBC auto differential, Comprehensive metabolic panel 05/25/[address] [address] Krystyna Bose PA-C request lab work, EKG, [...] Narrative Resulting Agency Comment Performed at: - [facility] [id number] Capacity Manager: Holly Son MD, Phone: [phone] us Shaista Carranza GROUND SUPPORT AGENT LAB BLOOD ORDERABLES Koki de la vega [...] Resulting Agency Comment Performed at: 01 - [facility] [id number] Capacity Manager: Holly Son MD, Phone: [phone] Shaista Carranza GROUND SUPPORT AGENT LAB BLOOD ORDERABLES Koki ceferino Result [facility] 1 * Cologuard?? colon cancer screening (09/04/2023 8:12 PM EDT) Pathologist [facility] Cologuard Result Negative Negative 09/11/20 5:17 AM EDT [facility] (CLIA #:[id number]) Comment: NEGATIVE TEST RESULT. A negative Cologuard [...] Haskins et al, N Engl J Med 2014;370(14):3011-1385) The normal value (reference range) for this assay is negative. COLOGUARD RE-SCREENING RECOMMENDATION: Periodic colorectal cancer screening is an important part of preventive healthcare for asymptomatic individuals at average risk for colorectal cancer. Following a negative Cologuard result, the British Cancer Society and U.S. Multi-Society Task Force screening guidelines recommend a Cologuard re-screening interval of 3 years. References: British Cancer Society Guideline for Colorectal Cancer Screening: https://www.cancer.org/cancer/udmdu-xwsxej-ooroow/ckyizncpk-jszaomypi-xrhcezf/ac s-rec ommendations.html.; Sarbjit AGUILERA, Veronika SRINIVASAN, Shavonne GonzálesK, Colorectal Cancer Screening: Recommendations for Physicians and Patients from the U.S. Multi-Society Task Force on Colorectal Cancer Screening , Am J Gastroenterology 2017; 112:0396-6565. TEST DESCRIPTION: Composite algorithmic analysis of stool [...] Haskins et al, N Engl J Med 2014;370(14):8836-7437.) Cologuard may produce a false negative or false positive result (no colorectal cancer or precancerous polyp present at colonoscopy follow up). A negative Cologuard test result does not guarantee the absence of CRC or advanced adenoma (pre-cancer). The current Cologuard screening interval is every 3 years. (British Cancer Society and U.S. Multi-Society Task Force). Cologuard performance data in a 10,000 patient pivotal study using colonoscopy as the reference method can be accessed at the following location: www.[employer]/results. Additional description of the Cologuard test process, warnings and precautions can be found at www.[employer]. Stool specimen (specimen) 09/04/2023 8:12 PM EDT 09/07/2023 1:52 PM EDT Krystyna Bose PA-C LAB MOLECULAR DIAGNOSTICS O RDERABLES Final Result [facility] (CLIA #:[id number]) [place] [address], * PAP, LB with CT/GC and HPV (10/31/2022 10:55 PM EST) PAP, LB WITH CT/GC AND HPV Patient Name: TYLER WHITNEY L [facility] Comment: Patient : 1960 (Age: 62) Lab Collection Date: 10/31/2022 Accession Date: 11/01/2022 Sign Out Date: 11/04/2022 Tissue Source: 1: THINPREP VOCATIONAL TRAINING TEACHER PAP TEST, CERVICAL: Final Diagnosis: NEGATIVE FOR INTRAEPITHELIAL LESION OR MALIGNANCY. Satisfactory for evaluation. Endocervical/transformation zone present. Procedures/Addenda: Human Papilloma Virus, High-Risk (Any Dx) Status: Signed Out Interpretation: Negative Methodology: [employer] Aptima HPV mRNA assay (Nucleic Acid Amplification Test, NAAT). Clinical History: Date of Last Menstrual Period: not available Menstrual History: not available Contraceptive History: not available Ancillary Testing: HPV (any dx) Case imaged by the [employer] Imaging System with manual rescreening or review. Clinical History (other): z12.4, routine screen Phone #: [phone], On-Call Pathologist: [id number] Testing performed or reported by [facility], a Service of [facility], [address] [place] [address] Celina Garcia MD, Switchboard Wire Worker Helper [facility]# [id number] 10/31/2022 10:5 5 PM EST 11/01/2022 6:18 AM EST Krystyna Bose PA-C LAB CYTOLOGY ORDERABLES Fin al Result [facility] [address] [place] [phone] * Colonoscopy (10/06/2011 2:33 PM EST) Anatomical Region Laterality Modality Endoscopy Impressions 10/06/2011 2:33 PM EST Normal-10 yr rpt Historical Provider ENDOSCOPY PROCEDURE ORDER ROC Final Result from Last 3 Months or Most Recently Relevant to Health Maintenance Insurance [facility] , [address] [place] [address] Care Teams Grain Drier Operator Relationship Specialty Start Date End Date Den Hernandez Unassigned PCP - General Family Medicine 08/24/25
--- OUTSIDE RECORDS SUMMARY | 2025-08-24 13:37 | XMS_ITS | Encounter Summary ---
Author Organization [employer] Address [address] [facility] 7t [place] [address] Care Team Providers Care Packing And Final Assembly Supervisor Name Role Phone Krystyna Bose PA-C Primary Care Provider Unav ailable Pcp, Den Unassigned Primary Care Provider U navailable Reason for Visit * Reason Comments Med Refill Encounter Details Date Type Department Care Team (Late st Contact Info) Description 03/22/2025 Refill Den [facility] [address] [place] [address] [place], [place], [facility] [address] [place] [address] Social History Tobacco Use Types Packs/Day Years [...] on filedocumented in this encounter Care Teams Packing And Final Assembly Supervisor Relationship Specialty Start Date End Date Krystyna Bose PA-C PCP - General Family Medicine 10/31/22 08/23/25 Den Hernandez Unassigned PCP - General Family Medicine 08/24/25 documented as of this encounter
--- OUTSIDE RECORDS SUMMARY | 2025-08-24 13:37 | XMS_ITS | Encounter Summary ---
Author Organization [employer] Address [address] [place] [address] 7 [place] [address] Care Team Providers Care Die Casting Machine Maintainer Name Role Phone Krystyna Bose PA-C Primary Care Provider Unav ailable Pcp, Den Unassigned Primary Care Provider U navailable Reason for Visit * Reason Comments Med Refill Encounter Details Date Type Department Care Team (Late st Contact Info) Description 07/04/2025 Refill Den [facility] [address] [place] [address] Shaista Carranza FNP [address] [place] [address] Fibromyalgia Social History Tobacco Use Types Packs/Day [...] myositis documented in this encounter Care Teams Die Casting Machine Maintainer Relationship Specialty Start Date End Date Krystyna Bose PA-C PCP - General Family Medicine 10/31/22 08/23/25 Den Hernandez Unassigned PCP - General Family Medicine 08/24/25 documented as of this encounter
--- OUTSIDE RECORDS SUMMARY | 2025-08-24 13:37 | XMS_ITS | Encounter Summary ---
Author Organization [facility] Address [address] [address] Phone Care Team Providers Care Spiral Winding Machine Helper Name Role Phone Mreon Villalobos MD Primary Care Provider [phone]- [phone] Encounter Details Date Type Department Care Team (Late st Contact Info) Description 02/13/2023 Procedure Pass [facility] [address] [place] [address] Social History Tobacco Use Types Packs/Day Years [...] on filedocumented in this encounter Care Teams Spiral Winding Machine Helper Relationship Specialty Start Date End Date Meron Villalobos MD PCP - General 09/07/17 documented as of this encounter Additional Source Comments The information contained in this document represents components of the legal health record. It is not the complete legal health record.[facility]
--- OUTSIDE RECORDS SUMMARY | 2025-08-24 13:37 | XMS_ITS | Encounter Summary ---
Author Organization [employer] Address [address] [place] [address] 7 [place] [address] Care Team Providers Care Fish And Wildlife Biologist Name Role Phone Krystyna Bose PA-C Primary Care Provider Unav ailable PcpDen Unassigned Primary Care Provider U navailable Encounter Details Date Type Department Care Team (Late st Contact Info) Description 11/05/2023 Orders Only [facility] [address] [place] [address] Krystyna Bose PA-C Social History Tobacco Use [...] on filedocumented in this encounter Care Teams Fish And Wildlife Biologist Relationship Specialty Start Date End Date Krystyna Boes PA-C PCP - General Family Medicine 10/31/22 08/23/25 Den Hernandez Unassigned PCP - General Family Medicine 08/24/25 documented as of this encounter
--- OUTSIDE RECORDS SUMMARY | 2025-08-24 13:37 | XMS_ITS | Clinical Summary ---
Author Organization [facility] Address [address] [place], [place] [address] Phone Care Team Providers Care Shipping Receiving Manager Name Role Phone Meron Villalobos MD Primary Care Provider +1- [phone] Allergies Active Allergy Reactions Criticality Noted Date [...] topic Medical Devices Not on file [place] [address] [place] [address] [place] [place] [address] HMO [facility] [place] [address] [place] [address] [place] [address] [place] [address] [place] [place] [address] HMO Member Subscriber Plan / Payer (Ef fective 2020-Present) Name:Whitney Rosa Relation to Subscriber:Self Name:Whitney Rosa Payer ID:Not on file Type:O Address: [place] [id number] Care Teams Shipping Receiving Manager Relationship Specialty Start Date End Date Meron Villalobos MD PCP - General 09/07/17 Additional Source Comments The information contained in this document represents components of the legal health record. It is not the complete legal health record.[facility]
--- OUTSIDE RECORDS SUMMARY | 2025-08-24 13:37 | XMS_ITS | Encounter Summary ---
Author Organization [employer] Address [address] [place] [address] 7 [place] [address] Care Team Providers Care Mine Wedge Sawyer Name Role Phone Krystyna Bsoe PA-C Primary Care Provider Unav ailable PcpDen Unassigned Primary Care Provider U navailable Reason for Visit * Reason Comments Med Refill Encounter Details Date Type Department Care Team (Late st Contact Info) Description 01/06/2024 Refill Den [address] [address] Neema Lujan FNP Chronic pain syndrome Social [...] syndrome documented in this encounter Care Teams Mine Wedge Sawyer Relationship Specialty Start Date End Date Krystyna Bose PA-C PCP - General Family Medicine 10/31/22 08/23/25 PcpDen Unassigned PCP - General Family Medicine 08/24/25 documented as of this encounter
--- OUTSIDE RECORDS SUMMARY | 2025-08-24 13:38 | XMS_ITS | Encounter Summary ---
Author Organization [facility] Address [address] [place] [address] Phone Care Team Providers Care Online Merchandising Coordinator Name Role Phone Meron Villalobos MD Primary Care Provider +1- [phone] Meron Villalobos MD Unavailable [phone] Encounter Details Date Type Department Care Team (Late st Contact Info) Description 01/21/2018 Ancillary Orders Virtual Department [address] [place] [address] Meron Villalobos MD [address] [place] [address] Breast screening Social History Tobacco Use Types [...] unspecified documented in this encounter Care Teams Online Merchandising Coordinator Relationship Specialty Start Date End Date Meron Villalobos MD PCP - General 09/07/17 Meron Villalobos MD [address] [place] [address] Insurance Assigned Provider 03/26/1902/28 documented as of this encounter Additional Source Comments The information contained in this document represents components of the legal health record. It is not the complete legal health record.[facility]
--- OUTSIDE RECORDS SUMMARY | 2025-08-24 13:38 | XMS_ITS | Encounter Summary ---
Author Organization [employer] Address [address] [place] [address] 7 [place] [address] Care Team Providers Care Forestry And Wildlife Manager Name Role Phone Krystyna Bose PA-C Primary Care Provider Unav ailable Pcp, Den Unassigned Primary Care Provider U navailable Reason for Visit * Reason Comments Med Refill Encounter Details Date Type Department Care Team (Late st Contact Info) Description 11/10/2024 Refill Den [facility] [address] [place] [address] Bharti James MD [address] [place] [address] Fibromyalgia Social History Tobacco Use Types Packs/Day [...] myositis documented in this encounter Care Teams Forestry And Wildlife Manager Relationship Specialty Start Date End Date Krystyna Bose PA-C PCP - General Family Medicine 10/31/22 08/23/25 Den Hernandez Unassigned PCP - General Family Medicine 08/24/25 documented as of this encounter
--- OUTSIDE RECORDS SUMMARY | 2025-08-24 13:38 | XMS_ITS | Encounter Summary ---
Author Organization [employer] Address [address] [place] [address] 7 [place] [address] Care Team Providers Care Mid Level Java Developer Name Role Phone Krystyna Bose PA-C Primary Care Provider Unav ailable Pcp, Den Unassigned Primary Care Provider U navailable Reason for Visit * Reason Comments Med Refill Encounter Details Date Type Department Care Team (Late st Contact Info) Description 11/11/2024 Refill [place] [facility] [address] [place] [address] Bharti James MD [address] [place] [address] Fibromyalgia Social History Tobacco Use Types Packs/Day [...] myositis documented in this encounter Care Teams Mid Level Java Developer Relationship Specialty Start Date End Date Krystyna Bose PA-C PCP - General Family Medicine 10/31/22 08/23/25 Den Hernandezssigned PCP - General Family Medicine 08/24/25 documented as of this encounter
--- OUTSIDE RECORDS SUMMARY | 2025-08-24 13:38 | XMS_ITS | Encounter Summary ---
Author Organization [facility] Address [address] [facility] [address] [place] [address] Phone Care Team Providers Care Installations Inspector Name Role Phone Meron Villalobos MD Primary Care Provider [phone]- [phone] Encounter Details Date Type Department Care Team (Late st Contact Info) Description 08/16/2020 Ancillary Orders Virtual Department [address] [place] [address] [facility] [address] [place] [address] [email or web address] Breast screening; Smoker Social History Tobacco [...] disorder documented in this encounter Care Teams Installations Inspector Relationship Specialty Start Date End Date Meron Villalobos MD PCP - General 09/07/17 documented as of this encounter Additional Source Comments The information contained in this document represents components of the legal health record. It is not the complete legal health record.[facility]
== END 2025-08-23 11:55 | disposition home or self-care (01) ==
LOC: HO.HOSX 11:54
PROVIDERS: Visit Provider Physician Assistant
DX: Z47.89 Encounter for other orthopedic aftercare (principal); G95.9 Disease of spinal cord, unspecified; Z98.1 Arthrodesis status
CPT/HCPCS: 72050

== ENCOUNTER 2025-08-23 13:22 | Outpatient (AMB) | payer OTHER, SELFPAY ==
--- NOTE | 2025-08-23 13:21 | A.SPINEOV_ITS ---
Intake Visit Reasons: 2nd post op with Xrays Intake Note: Ms. Rosa is here today for her 2nd post op with x-rays. Supervisor Sawing And Assembly Required: No Allergies amoxicillin Allergy (Intermediate, Verified 08/23/25 13:26) Rash erythromycin base Adverse Reaction (Intermediate, Verified 08/23/25 13:26) Gastrointestinal Upset Assessment & Plan Assessment & Plan (1) Cervical myelopathy: Code(s): G95.9 - Disease of spinal cord, unspecified Category: Medical Plan Procedure: C4-5 ACDF Whitney is a pleasant 65 year old female who comes in today for her 2nd postoperative visit after having C4-[address] Noguera. She reports that overall she has been doing very well since her last office visit. She reports her posterior neck pain has improved. She does still report some low grade hypoesthesia of the upper extremities but is otherwise doing well. We reviewed her XR imaging during this visit which shows stable placement of her surgical constuct with no changes from flouroscopy. No new neurological deficits. The patient ambulates well and rises from a seated position without difficulty. Her anterior incision site is closed and well healing. Whitney reported that she previously discussed addressing her lumbar spine concerns with CHANDNI Golden. She would like to make a follow up with him regarding this. I advised the front office to book her as an established patient new complaint in the next few weeks. Jong Noguera MD,PhD [facility] Orders: Orders XR cervical spine 4V Today G95.9 - Disease of spinal cord, unspecified Coding Level of Care Code Global (76140) Diagnoses Cervical myelopathy G95.9
--- OUTSIDE RECORDS SUMMARY | 2025-08-23 14:34 | XMS_ITS | Clinical Summary ---
Author Organization [employer] Address [address] [place] [address] 7t [place] [address] Care Team Providers Care Automotive Tire Tester Name Role Phone Krystyna Bose PA-C Primary [...] hours. Active Flovent HFA 220 MCG/ACT inhaler 11/22/20 21 Active lidocaine (Lidoderm) 5 % patch Place 1 patch on the skin at bed time. Active loratadine (Claritin) 10 MG tablet Take 10 mg by mouth in the morning. Active hydroCHLOROthia zide (HYDRODiuril) 25 MG tablet Take 25 mg by mouth in the morning. Active hydrOXYzine HCl (Atarax) 25 MG tablet TAKE 1 TABLET BY MOUTH IF NEEDED AT BEDTIME FOR INSOMNIA 90 tablet 03/01/20 25 Active buPROPion SR (Wellbutrin SR) 150 MG 12 hr tabletIndicatio ns:Chronic pain syndrome Take 1 tablet (150 mg) by mouth 2 times daily. Do not crush, chew, or split. 180 tablet 03/24/20 25 Active pravastatin (Pravachol) 20 MG tabletIndicatio ns:Hyperlipidem ia, unspecified Take 1 tablet (20 mg) by mouth Once per day. 90 tablet 03/24/20 25 Active metaxalone (Skelaxin) 800 MG tabletIndicatio ns:Chronic pain syndrome Take 1 tablet (800 mg) by mouth if needed in the morning and at bedtime for muscle spasms. 60 tablet 07/27/20 25 025 Active oxyCODONE (Roxicodone) 10 MG immediate release tabletIndicatio ns:Chronic pain syndrome,Histor y of lumbar fusion Take 1 tablet (10 mg) by mouth if needed in the morning, at noon, in the evening, and at bedtime for severe pain for up to 28 days. 112 tablet 07/27/20 25 025 Active gabapentin (Neurontin) 100 MG capsuleIndicati ons:Fibromyalgi a Take 2 capsules (200 mg) by mouth 2 times daily. 120 capsule 07/27/20 25 Active gabapentin (Neurontin) 600 MG tabletIndicatio ns:Fibromyalgia Take 1 tablet (600 mg) by mouth 2 times daily. 60 tablet 07/27/20 25 Active oxyCODONE (Roxicodone) 10 MG immediate release tabletIndicatio ns:Chronic pain syndrome,Histor y of lumbar fusion Take 1 tablet (10 mg) by mouth if needed in the morning, at noon, in the evening, and at bedtime for severe pain for up to 28 days. 112 tablet 07/05/20 25 025 Discontinued(Re order (will not trigger notification to Pharmacy)) gabapentin (Neurontin) 100 MG capsuleIndicati ons:Fibromyalgi a TAKE 2 CAPSULES BY MOUTH 2 TIMES DAILY. 120 capsule 07/05/20 25 025 Discontinued(Re order (will not trigger notification to Pharmacy)) gabapentin (Neurontin) 600 MG tabletIndicatio ns:Fibromyalgia Take 1 tablet (600 mg) by mouth 2 times daily. 60 tablet 07/05/20 25 025 Discontinued(Re order (will not trigger notification to Pharmacy)) metaxalone (Skelaxin) 800 MG tabletIndicatio ns:Chronic pain syndrome Take 1 tablet (800 mg) by mouth if needed in the morning and at bedtime for muscle spasms. 60 tablet 07/05/20 25 025 Discontinued(Re order (will not trigger notification to Pharmacy)) Active Problems Problem Noted Date Diagnosed Date [...] Encounters Date Type Department Care Team Description 07/27/2025 Refill [facility] [address] [place] [address] Krystyna Bose PA-C Chronic pain syndrome; History of lumbar fusion; Fibromyalgia 07/04/2025 Refill [facility] [address] [place] [address] Shaista Carranza FNP Fibromyalgia; Chronic pain syndrome 07/04/[address] [address] Shaista Carranza FNP Fibromyalgia 07/04/[address] [address] Krystyna Bose PA-C Med Refill 07/03/2025 11:20 AM EDT Office Visit [facility] [address] [place] [address] Shaista Carranza FNP Chronic pain syndrome; History of lumbar fusion 06/08/[address] [address] Shaista Carranza FNP Fibromyalgia; Chronic pain syndrome 06/07/[address] [address] Krystyna Bose PA-C Post-op pain; Chronic pain syndrome; History of lumbar fusion 05/25/2025 Results Follow-Up [facility] [address] [place] [address] Frontiero, Aleksandra, DIALER CBC auto differential, Comprehensive metabolic panel 05/25/[address] [address] Krystyna Bose PA-C request lab work, EKG, and OV notes from Last 3 Months Immunizations Immunization Administration [...] Sign Reading Time Taken Comments Blood Pressure 110/64 07/03/2025 11:28 AM EDT Pulse 80 07/03/2025 11:28 AM EDT Temperature 36.1 C (97 F) 07/03/2025 11:28 AM EDT Respiratory Rate 16 07/03/2025 11:28 AM EDT Oxygen Saturation 98% 10/31/2022 2:17 PM EST Inhaled Oxygen Concentration - - Weight 80.3 kg (177 lb) 07/03/2025 11:28 AM EDT Height 156.8 cm (5' 1.75 ) 07/03/2025 11:28 AM E DT Body Mass Index 32.64 07/03/2025 11:28 AM EDT Plan of Treatment Health Maintenance Due Date Last Done Comments CT Colonography 1960 FIT 1960 Lipid Panel 1960 Sigmoidoscopy 1960 Alcohol/Substance Use Screening 1972 Hepatitis C Screening 1978 Mammogram 2000 Pneumococcal Vaccine: 50+ Years (2 of 2 - PCV) 09/20/2009 09/20/2008 RSV Patients and Patients Aged 60 years or older (1 - Risk 60-74 years 1-dose series) 2020 Zoster Vaccines (3 of 3) 06/06/2021 04/11/2021, 05/2 Colonoscopy 10/06/2021 10/06/2011 FOBT 09/04/2024 09/04/2023 COVID-19 Vaccine ( season) 2025 02/01/2024, 09/30/2022, 12/24/2021, Additional history exists Influenza Vaccine (#1) 2025 , 08/04/2024, 08/03/2023, Additional history exists Depression Screening 12/07/2025 12/07/2024, 12/07/19 25 SDOH Screening 12/07/2025 12/07/2024 Tobacco Screening 07/03/2026 07/03/2025 Colorectal Cancer Screening 09/04/2026 FIT DNA/Cologuard 09/04/2026 09/04/2023 Cervical Cancer Screening 10/31/2027 HPV/Cotest 10/31/2027 10/31/2022 Pap Smear 10/31/2027 10/31/2022, 02/13/2016 DTaP/Tdap/Td Vaccines (3 - Td or Tdap) 10/31/2032 10/31/2022, 05/08/2011, 11/23/1998 HIB Vaccines Aged Out No longer eligi [...] Procedure Name Priority Date/Time Associated Diagnosis Comments COMPREHENSIVE METABOLIC PANEL Routine 05/24/2025 2:53 PM EDT Routine health maintenance CBC WITH AUTO DIFFERENTIAL Routine 05/24/2025 2:53 PM EDT Routine health maintenance LAB COLOGUARD COLON CANCER SCREEN Routine 09/04/2023 8:12 PM EDT Routine health maintenance PAP, LB WITH CT/GC AND HPV Routine 10/31/2022 10:55 PM EST COLONOSCOPY Routine 10/06/2011 2:33 PM EST from Last 3 Months or Most Recently Relevant to Health Maintenance Results * (ABNORMAL) CBC auto differential (05/24/2025 2:53 PM EDT) White Blood Cell Count 11.9(H) 3.4 - 10.8 x10E3/uL [facility] 1 Red Blood Cell Count 4.19 3.77 - 5.28 x10E6/uL [facility] 1 Hemoglobin 13.2 11.1 - 15.9 g/dL [facility] 1 Hematocrit 40.1 34.0 - 46.6 % [facility] 1 MCV 96 79 - 97 fL [facility] 1 MCH 31.5 26.6 - 33.0 pg [facility] 1 MCHC 32.9 31.5 - 35.7 g/dL [facility] 1 RDW 12.3 11.7 - 15.4 % [facility] 1 Platelet Count 388 150 - 450 x10E3/uL [facility] 1 Neutrophils 50 Not Estab. % [facility] 1 Lymphocytes 35 Not Estab. % [facility] 1 Monocytes 11 Not Estab. % [facility] 1 Eosinophils 3 Not Estab. % [facility] 1 Basophils 1 Not Estab. % [facility] 1 Absolute Neutrophils 6.0 1.4 - 7.0 x10E3/uL [facility] 1 Absolute Lymphocytes 4.1(H) 0.7 - 3.1 x10E3/uL [facility] 1 Absolute Monocytes 1.3(H) 0.1 - 0.9 x10E3/uL [facility] 1 Absolute Eosinophils 0.3 0.0 - 0.4 x10E3/uL [facility] 1 Absolute Basophils 0.1 0.0 - 0.2 x10E3/uL [facility] 1 Immature Granulocytes 0 Not Estab. % [facility] 1 Immature Grans (Abs) 0.0 0.0 - 0.1 x10E3/uL [facility] 1 Blood Venous blood specimen / Unknown 05/24/2025 2:53 PM EDT 05/24/2025 Narrative Resulting Agency Comment Performed at: - [facility] [id number] Floor Nurse: Holly Son MD, Phone: [phone] us Shaista Carranza DIALER LAB BLOOD ORDERABLES Koki de la vega Result [facility] * Comprehensive metabolic panel (05/24/2025 2:53 PM EDT) Glucose 93 70 - 99 mg/dL [facility] 1 Urea Nitrogen (BUN) 10 8 - 27 mg/dL [facility] 1 Creatinine, Serum 0.78 0.57 - 1.00 mg/dL [facility] 1 eGFR 85 >59 mL/min/1.7 3 [facility] 1 BUN/Creatinine Ratio 13 12 - 28 [facility] 1 Sodium 139 134 - 144 mmol/L [facility] 1 Potassium 4.0 3.5 - 5.2 mmol/L [facility] 1 Chloride 98 96 - 106 mmol/L [facility] 1 Anion Gap 17.0 10.0 - 18.0 mmol/L [facility] 1 Carbon Dioxide 24 20 - 29 mmol/L [facility] 1 Calcium 9.3 8.7 - 10.3 mg/dL [facility] 1 Protein, Total 6.7 6.0 - 8.5 g/dL [facility] 1 Albumin 4.3 3.9 - 4.9 g/dL [facility] 1 Globulin 2.4 1.5 - 4.5 g/dL [facility] 1 Bilirubin, Total 0.2 0.0 - 1.2 mg/dL [facility] 1 Alkaline Phosphatase 63 44 - 121 IU/L [facility] 1 AST 16 0 - 40 IU/L [facility] 1 ALT 23 0 - 32 IU/L [facility] 1 Blood Venous blood specimen / Unknown 05/24/2025 2:53 PM EDT 05/24/2025 Narrative Resulting Agency Comment Performed at: 01 - [facility] [address] [id number] Floor Nurse: Holly Son MD, Phone: [phone] us Shaista Carranza DIALER LAB BLOOD ORDERABLES Koki ceferino Result [facility] * Cologuard?? colon cancer screening (09/04/2023 8:12 PM EDT) Pathologist [facility] Cologuard Result Negative Negative 09/11/20 5:17 AM EDT [facility] (CLIA #:[id number]) Comment: NEGATIVE TEST RESULT. A negative Cologuard result indicates a low likelihood that a colorectal cancer (CRC) or advanced adenoma (adenomatous polyps with more advanced pre-malignant features) is present. The chance that a person with a negative Cologuard test has a colorectal cancer is less than 1 in 1500 (negative predictive value >99.9%) or has an advanced adenoma is less than 5.3% (negative predictive value 94.7%). These data are based on a prospective cross-sectional study of 10,000 individuals at average risk for colorectal cancer who were screened with both Cologuard and colonoscopy. (Lizbeth Haskins et al, N Engl J Med 2014;370(14):2489-4731) The normal value (reference range) for this assay is negative. COLOGUARD RE-SCREENING RECOMMENDATION: Periodic colorectal cancer screening is an important part of preventive healthcare for asymptomatic individuals at average risk for colorectal cancer. Following a negative Cologuard result, the [place] Cancer Society and U.S. Multi-Society Task Force screening guidelines recommend a Cologuard re-screening interval of 3 years. References: [place] [employer] Guideline for Colorectal Cancer Screening: https://www.cancer.org/cancer/xjkqy-alutps-gqhmpd/mthlayftb-qnfzckiik-jzapyhl/ac s-rec ommendations.html.; Sarbjit AGUILERA, Veronika SRINIVASAN, Shavonne GonzálesK, Colorectal Cancer Screening: Recommendations for Physicians and Patients from the U.S. Multi-Society Task Force on Colorectal Cancer Screening , Am J Gastroenterology 2017; 112:9062-2437. TEST DESCRIPTION: Composite algorithmic analysis of stool DNA-biomarkers with hemoglobin immunoassay. Quantitative values of individual biomarkers are not [...] (Lizbeth Li al, N Engl J Med 2014;370(14):9496-7408.) Cologuard may produce a false negative or false positive result (no colorectal cancer or precancerous polyp present at colonoscopy follow up). A negative Cologuard test result does not guarantee the absence of CRC or advanced adenoma (pre-cancer). The current Cologuard screening interval is every 3 years. ([place] Cancer Society and U.S. Multi-Society Task Force). Cologuard performance data in a 10,000 patient pivotal study using colonoscopy as the reference method can be accessed at the following location: www.Weekdone/results. Additional description of the Cologuard test process, warnings and precautions can be found at www.Domain InvestogSpotplex[employer]. Stool specimen (specimen) 09/04/2023 8:12 PM EDT 09/07/2023 1:52 PM EDT Krystyna Bose PA-C LAB MOLECULAR DIAGNOSTICS O RDERABLES Final Result [facility] (CLIA #:[id number]) [place] [address], * PAP, LB with CT/GC and HPV (10/31/2022 10:55 PM EST) PAP, LB WITH CT/GC AND HPV Patient Name: TYLER WHITNEY L [facility] Comment: Patient : 1960 (Age: 62) Lab Collection Date: 10/31/2022 Accession Date: 11/01/2022 Sign Out Date: 11/04/2022 Tissue Source: 1: THINPREP ORGAN GRINDER PAP TEST, CERVICAL: Final Diagnosis: NEGATIVE FOR INTRAEPITHELIAL LESION OR MALIGNANCY. Satisfactory for evaluation. Endocervical/transformation zone present. Procedures/Addenda: Human Papilloma Virus, High-Risk (Any Dx) Status: Signed Out Interpretation: Negative Methodology: Shaker Aptima HPV mRNA assay (Nucleic Acid Amplification Test, NAAT). Clinical History: Date of Last Menstrual Period: not available Menstrual History: not available Contraceptive History: not available Ancillary Testing: HPV (any dx) Case imaged by the MetaNotesPreAltair Prep Imaging System with manual rescreening or review. Clinical History (other): z12.4, routine screen Phone #: [phone], On-Call Pathologist: [id number] Testing performed or reported by [facility], a Service of [facility], [address] [place] [address] Celina Garcia MD, Interior Design Teacher [facility]# [id number] 10/31/2022 10:5 5 PM EST 11/01/2022 6:18 AM EST Krystyna Bose PA-C LAB CYTOLOGY ORDERABLES Fin al Result [facility] [address] [place] [id number] * Colonoscopy (10/06/2011 2:33 PM EST) Anatomical Region Laterality Modality Endoscopy Impressions 10/06/2011 2:33 PM EST Normal-10 yr rpt Historical Provider ENDOSCOPY PROCEDURE ORDER ROC Final Result from Last 3 Months or Most Recently Relevant to Health Maintenance Insurance [facility] [address] [place] [address] Care Teams Automotive Tire Tester Relationship Specialty Start Date End Date Krystyna Bose PA-C PCP - General Family Medicine 10/31/22
--- OUTSIDE RECORDS SUMMARY | 2025-08-23 14:34 | XMS_ITS | Encounter Summary ---
Author Organization [facility] Address [address] [place] [address] Phone Care Team Providers Care Global Marketing Intern Name Role Phone Meron Villalobos MD Primary Care Provider +1- [phone] Encounter Details Date Type Department Care Team (Late st Contact Info) Description 12/08/2024 Procedure Pass [facility], [address] [address] Social History Tobacco Use Types Packs/Day Years [...] on file Sexual Orientation Not on file documented as of this encounter Plan of Treatment Not on file documented as of this encounter Visit Diagnoses Not on filedocumented in this encounter Care Teams Global Marketing Intern Relationship Specialty Start Date End Date Meron Villalobos MD PCP - General 09/07/17 documented as of this encounter Additional Source Comments The information contained in this document represents components of the legal health record. It is not the complete legal health record.[facility]
--- OUTSIDE RECORDS SUMMARY | 2025-08-23 14:34 | XMS_ITS | Encounter Summary ---
Author Organization [facility] Address [address] [place] [address] 7 [place] [address] Care Team Providers Care Curriculum Supervisor Name Role Phone Krystyna Bose PA-C Primary Care Provider Unav ailable Reason for Visit * Reason Comments Med Refill Encounter Details Date Type Department Care Team (Late st Contact Info) Description 11/11/2024 Refill [facility] [address] [place] [address] Bharti James MD [address] [place] [address] Fibromyalgia Social History Tobacco Use Types Packs/Day [...] myositis documented in this encounter Care Teams Curriculum Supervisor Relationship Specialty Start Date End Date Krystyna Bose PA-C PCP - General Family Medicine 10/31/22 documented as of this encounter
--- OUTSIDE RECORDS SUMMARY | 2025-08-23 14:34 | XMS_ITS | Clinical Summary ---
Author Organization [facility] Address [address] [place], [place] [address] Phone Care Team Providers Care Supervisor Vegetable Farming Name Role Phone Meron Villalobos MD Primary Care Provider +1- [phone] Allergies Active Allergy Reactions Criticality Noted Date [...] HIV ONE-TIME SCREENING (18-6 5 YEARS) 1978 SCREENING FOR DIABETES 1995 MAMMOGRAM 2000 COLOGUARD 2005 COLONOSCOPY 2005 COLORECTAL CANCER SCREENING 2005 FIT TEST 2005 FOBT 2005 SIGMOIDOSCOPY 2005 VIRTUAL COLONOSCOPY 2005 PNEUMOCOCCAL VACCINES (50+ years) (2 of 2 - PCV) 09/20/2009 09/20/2008 ZOSTER VACCINES (2 of 2) 06/06/2021 04/11/2021 LIPID PANEL 08/19/2024 08/19/2019 INFLUENZA VACCINE (#1) 2025 0, 09/12/2019 OSTEOPOROSIS SCREENING INITI AL (ONE-TIME) 2025 COVID-19 VACCINE (3 - 2024-2 6 season) 2025 02/21/2021, 01/31/2021 Adult Td,Tdap Booster 10/31/2032 10/31/2022 , 05/08/2011 [...] topic Medical Devices Not on [place] [address] [place] [address] [place] [address] [place] [address] [address]MO [facility] [address] [place] [address] [place] [address] [place] [address] [place] [address] [place] [address] HMO Member Subscriber Plan / Payer (Ef fective 2020-Present) Name:Whitney Rosa Relation to Subscriber:Self Name:Whitney Rosa Payer ID:Not on file Type:O Address: [place] [id number] Care Teams Supervisor Vegetable Farming Relationship Specialty Start Date End Date Meron Villalobos MD PCP - General 09/07/17 Additional Source Comments The information contained in this document represents components of the legal health record. It is not the complete legal health record.[facility]
--- OUTSIDE RECORDS SUMMARY | 2025-08-23 14:34 | XMS_ITS | Encounter Summary ---
Author Organization [employer] Address [address] [facility] 7t [place] [address] Care Team Providers Care Slot Host Name Role Phone Krystyna Bose PA-C Primary Care Provider Unav ailable Reason for Visit * Reason Comments Med Refill Encounter Details Date Type Department Care Team (Late st Contact Info) Description 07/04/2025 Refill [facility] [address] [place] [address] Shaista Carranza FNP [address] [place] [address] Fibromyalgia Social History Tobacco Use Types Packs/Day [...] t he electric, gas, oil or water [employer] threatened to shut off services in your [...] Telephone Encounter - Freddy Martino CMA - 07/04/2025 4:13 PM EDT Will combine with the 100 mg request. documented in this encounter Plan of Treatment Not on file documented as of this encounter Visit Diagnoses Diagnosis Fibromyalgia Unspecified myalgia and myositis documented in this encounter Care Teams Slot Host Relationship Specialty Start Date End Date Krystyna Bose PA-C PCP - General Family Medicine 10/31/22 documented as of this encounter
--- OUTSIDE RECORDS SUMMARY | 2025-08-23 14:34 | XMS_ITS | Encounter Summary ---
Author Organization [facility] Address [address] [place] [address] Phone Care Team Providers Care Glove Machine Operator Name Role Phone Meron Villalobos MD Primary Care Provider +1- [phone] Encounter Details Date Type Department Care Team (Latest Contact Info) Description 02/02/2024 Transcribe Orders Virtual Department [address] [place] [address] Krystyna Bose PA [address] [place] [address]. [place] [address] [email or web address] Cigarette smoker (Primary Dx) Social History Tobacco Use Types Packs/Day Years [...] as of this encounter Visit Diagnoses Diagnosis Cigarette smoker- Primary Tobacco use disorder documented in this encounter Care Teams Glove Machine Operator Relationship Specialty Start Date End Date Meron Villalobos MD [email or web address] PCP - General 09/07/17 documented as of this encounter Additional Source Comments The information contained in this document represents components of the legal health record. It is not the complete legal health record.[facility]
--- OUTSIDE RECORDS SUMMARY | 2025-08-23 14:34 | XMS_ITS | Encounter Summary ---
Author Organization [facility] Address [address] [place] [address] Phone Care Team Providers Care Principal Software Engineer Name Role Phone Meron Villalobos MD Primary Care Provider +1- [phone] Encounter Details Date Type Department Care Team (Late st Contact Info) Description 12/08/2024 Procedure Pass [facility], [address] [address] Social History Tobacco Use Types Packs/Day Years [...] on filedocumented in this encounter Care Teams Principal Software Engineer Relationship Specialty Start Date End Date Meron Villalobos MD PCP - General 09/07/17 documented as of this encounter Additional Source Comments The information contained in this document represents components of the legal health record. It is not the complete legal health record.[facility]
--- OUTSIDE RECORDS SUMMARY | 2025-08-23 14:34 | XMS_ITS | Encounter Summary ---
Author Organization [facility] Address [address] [place] [address] Phone Care Team Providers Care Granular Operator Name Role Phone Meron Villalobos MD Primary Care Provider +1- [phone] Encounter Details Date Type Department Care Team (Late st Contact Info) Description 12/08/2024 Procedure Pass [facility], [address] [address] Social History Tobacco Use Types Packs/Day Years [...] on filedocumented in this encounter Care Teams Granular Operator Relationship Specialty Start Date End Date Meron Villalobos MD PCP - General 09/07/17 documented as of this encounter Additional Source Comments The information contained in this document represents components of the legal health record. It is not the complete legal health record.[facility]
--- OUTSIDE RECORDS SUMMARY | 2025-08-23 14:34 | XMS_ITS | Encounter Summary ---
Author Organization [employer] Address [address] [facility] 7t [place] [address] Care Team Providers Care Glass Vial Filler Name Role Phone Krystyna Bose PA-C Primary Care Provider Unav ailable Encounter Details Date Type Department Care Team ([facility] st Contact Info) Description 05/17/2025 Orders Only [place] [facility] [address] [place] [address] Shaista Carranza FNP [address] [place] [address] Routine health maintenance (Primary Dx) Social History Tobacco Use Types [...] the past 12 months, has t he [employer], [employer] threatened to shut off services in your [...] Procedure Name Priority Date/Time Associated Diagnosis Comments CBC WITH AUTO DIFFERENTIAL Routine 05/24/2025 2:53 PM EDT Routine health maintenance COMPREHENSIVE METABOLIC PANEL Routine 05/24/2025 2:53 PM EDT Routine health maintenance documented in this encounter Results * Comprehensive metabolic panel (05/24/2025 2:53 PM EDT) Pathologist [facility] Glucose 93 70 - 99 mg/dL [facility] [...] Agency Comment Performed at: 01 - [facility] [address] [id number] Senior Ios Software Engineer: Holly Son MD, Phone: [phone] Shaista Carranza INTERNAL CONTROLS SPECIALIST LAB BLOOD ORDERABLES Koki l Result [facility] 1 * (ABNORMAL) CBC auto differential (05/24/2025 2:53 [...] Agency Comment Performed at: 01 - [facility] [address] [id number] Senior Ios Software Engineer: Holly Son MD, Phone: [phone] us Shaista Carranza INTERNAL CONTROLS SPECIALIST LAB BLOOD ORDERABLES Koki l Result [facility] 1 documented in this encounter Visit Diagnoses Diagnosis Routine health maintenance- Primary Unspecified examination documented in this encounter Care Teams Glass Vial Filler Relationship Specialty Start Date End Date Krystyna Bose PA-C PCP - General Family Medicine 10/31/22 documented as of this encounter
--- OUTSIDE RECORDS SUMMARY | 2025-08-23 14:34 | XMS_ITS | Encounter Summary ---
Author Organization [facility] Address [address] [address] Phone Care Team Providers Care Ct Manager Name Role Phone Meron Villalobos MD Primary Care Provider [phone] Encounter Details Date Type Department Care Team (Late st Contact Info) Description 02/13/2023 Procedure Pass [facility] [address] [place] [address] Social History Tobacco Use Types Packs/Day Years Used Date Smoking Tobacco: Every Day Cigarettes Alcohol Use Standard Drinks/Week Comments Yes 0 (1 standard drink = 0.6 oz pur e alcohol) Comments Unknown Sex and Gender Information Value Date Recorded Sex Assigned at Not on file Legal Sex Female 9:48 PM EDT Gender Identity Not on file Sexual Orientation Not on file documented as of this encounter Plan of Treatment Not on file documented as of this encounter Visit Diagnoses Not on filedocumented in this encounter Care Teams Ct Manager Relationship Specialty Start Date End Date Meron Villalobos MD PCP - General 09/07/17 documented as of this encounter Additional Source Comments The information contained in this document represents components of the legal health record. It is not the complete legal health record.[facility]
--- OUTSIDE RECORDS SUMMARY | 2025-08-23 14:34 | XMS_ITS | Encounter Summary ---
Author Organization [facility] Address [address] [place] [address] [place] [address] Phone Care Team Providers Care Infectious Waste Technician Name Role Phone Meron Villalobos MD Primary Care Provider [phone]- [phone] Reason for Referral * Outpatient Procedure - Closed Specialty Diagnoses / Procedures Referred By Ping galindo Referred To Contact Radiology Diagnoses Shortness of breath Procedures Adult Echo TTE Krystyna Bose PA [address] [facility] [place] [address] Phone: tel: fax: [email or web address] Referral ID Status Reason Start Date Expiration Date Visits Re quested Visits Authorized [id number] Closed 02/13/2023 1 1 Encounter Details Date Type Department Care Team (Latest Contact Info) Description 02/13/2023 Transcribe Orders Virtual Department [address] [place] [address] Krystyna Bose PA [address] [place] [address]. [place] [address] [email or web address] Shortness of breath Social History Tobacco Use Types Packs/Day Years [...] on file documented as of this encounter Results * TTE COMPREHENSIVE (11/03/2023 3:07 PM EST) Body Surface Area 1.78 m2 Height 157 cm Weight 77 kg Systolic BP 131 mmHg Diastolic BP 82 mmHg Left Atrium Dimension Anterior-Posterior 37 15 - 40 mm Aortic Valve Mean Gradient 5 mmHg Aortic Valve Time Velocity Integral 278 mm Aortic Valve Peak Velocity 163.0 cm/s Aortic Valve Peak Gradient 11 mmHg Aortic Sinus Diameter 29 mm Ascending Aorta Diameter 28 mm Inferior Vena Cava Diameter 13 0.0 - 21 mm Interventricular Septum Thickness 8 mm Left Ventricle Internal Diameter End Diastole 47 37 - 52 mm Left Ventricle Internal Diameter End Systole 32 22 - 35 mm Left Ventricular Outflow Tract Diameter 17.0 mm LVOT VTI REST 218 mm Left Ventricular Outflow Tract Velocity 1.2 m/s Left Ventricular Outflow Tract Gradient at Rest 5 mmHg Left Ventricular Posterior Wall Thickness 10 mm Ejection Fraction 60 50 - 75 Percent Mitral Valve A Wave Speed 93.5 cm/s Mitral Valve E Wave Speed 83.7 cm/s Right Ventricle Basal Diameter 27.6 25 - 41 mm Raw LV EF% 54 % Aortic Valve Sinus Index 1 16 19 - 27 mm Ascending Aorta Diameter 16 mm Ascending Aorta Index 16 mm Aortic Sinus Index 16 mm Right Ventricle TAPSE 21 mm Left Atrial Volume 40 mL Left Atrial Volume Index 22.47 mL/m2 Right Ventricle Pulse Doppler S Wave 12.0 cm/s Anatomical Region Laterality Modality Heart Ultrasound Narrative 11/04/2023 5:15 PM EST Normal LV size and wall thickness. LV systolic function is normal with an EF of 60-65%. There are no clear wall motion abnormalities. Normal diastolic function. Normal RV size and function. There is no hemodynamically significant valvular disease. No prior study for comparison. Left Ventricle The left ventricular cavity size and wall thickness are normal. Left ventricular systolic function is normal. The estimated ejection fraction is 60% (Normal 50- 75%). The left ventricular ejection fraction was measured by the single dimension method. Left ventricular diastolic function appears within normal limits for age. There is no evidence of left ventricular thrombus. Right Ventricle The right ventricular size is normal. The right ventricular systolic function is normal. Left Atrium The left atrium is normal in size. The left atrial anterior-posterior dimension measures 37 mm (normal 15-40 mm). The LA volume is 40 mL. The LA volume index is 22.5 mL/m2 (normal indexed value is 16-34 mL/m2). The pulmonary venous flow profiles are normal. Right Atrium The right atrium is normal in size. Mitral Valve E/A ratio is 0.9. E/E' avg is 7.9. Med E' velocity is 11.1cm/s. Lat E' velocity is 10.0cm/s. There is no evidence of mitral stenosis. There is no evidence of mitral valve prolapse. There is trace mitral regurgitation detected by spectral and color Doppler. Tricuspid Valve There is no evidence of tricuspid stenosis. There is evidence of trace tricuspid regurgitation by color and spectral Doppler. There is an insufficient tricuspid regurgitation Doppler profile to calculate a right ventricular systolic pressure. Aortic Valve The aortic valve is tricuspid. There is no evidence of valvular aortic stenosis. The peak aortic valve gradient is 11 mmHg. The mean aortic gradient is 5 mmHg. There is no evidence of aortic regurgitation by color and spectral Doppler. The visualized portions of the thoracic aorta appear normal. Pulmonic Valve There is no evidence of pulmonic stenosis. There is no evidence of pulmonary regurgitation by color and spectral Doppler. Pericardium There is no evidence of pericardial effusion. Interatrial Septum The interatrial septum appears normal. General Findings Technically adequate echocardiogram. Technique(s) used in the evaluation: Color flow Doppler and Spectral Doppler. The predominant rhythm during the study was sinus. Comparison Findings No prior studies for comparison. Krystyna TARIQ CV ECHO ORDERABLES Final Resu lt documented in this encounter Visit Diagnoses Diagnosis Shortness of breath Shortness of breath documented in this encounter Care Teams Infectious Waste Technician Relationship Specialty Start Date End Date Meron Villalobos MD [email or web address] PCP - General 09/07/17 documented as of this encounter Additional Source Comments The information contained in this document represents components of the legal health record. It is not the complete legal health record.[facility]
--- OUTSIDE RECORDS SUMMARY | 2025-08-23 14:34 | XMS_ITS | Encounter Summary ---
Author Organization [facility] Address [address] [facility] [address] [place] [address] Phone Care Team Providers Care Balance Wheel Screw Hole Driller Name Role Phone Meron Villalobos MD Primary Care Provider [phone] Encounter Details Date Type Department Care Team (Late st Contact Info) Description 08/16/2020 Ancillary Orders Virtual Department [address] [place] [address] [facility], TOMAS [address] [place] [address] [email or web address] Breast screening; Smoker Social History Tobacco Use Types Packs/Day Years Used Date Smoking Tobacco: Never Assessed Comments Unknown Sex and Gender Information Value Date Recorded Sex Assigned at Not on file Legal Sex Female 9:48 PM EDT Gender Identity Not on file Sexual Orientation Not on file documented as of this encounter Plan of Treatment Not on file documented as of this encounter Visit Diagnoses Diagnosis Breast screening Breast screening, unspecified Smoker Tobacco use disorder documented in this encounter Care Teams Balance Wheel Screw Hole Driller Relationship Specialty Start Date End Date Meron Villalobos MD PCP - General 09/07/17 documented as of this encounter Additional Source Comments The information contained in this document represents components of the legal health record. It is not the complete legal health record.[facility]
--- OUTSIDE RECORDS SUMMARY | 2025-08-23 14:34 | XMS_ITS | Encounter Summary ---
Author Organization [employer] Address [address] [place] [address] [address] [place] [address] Care Team Providers Care Collection Coordinator Name Role Phone Krystyna Bose PA-C Primary Care Provider Unav ailable Reason for Visit * Reason Comments Med Refill Encounter Details Date Type Department Care Team (Late st Contact Info) Description 11/10/2024 Refill [place] [facility] [address] [place] [address] Bharti James MD [address] [place] [address] Fibromyalgia Social History Tobacco Use Types Packs/Day [...] myositis documented in this encounter Care Teams Collection Coordinator Relationship Specialty Start Date End Date Krystyna Bose PA-C PCP - General Family Medicine 10/31/22 documented as of this encounter
--- OUTSIDE RECORDS SUMMARY | 2025-08-23 14:34 | XMS_ITS | Encounter Summary ---
Author Organization [facility] Address [address] [place] [address] 7 [place] [address] Care Team Providers Care Nuclear Power Plant Engineer Name Role Phone Krystyna Bose PA-C Primary Care Provider Unav ailable Reason for Visit * Reason Comments Med Refill Encounter Details Date Type Department Care Team (Late st Contact Info) Description 01/06/2024 Refill [place] [facility] [address] [place] [id number] Neema Lujan FNP Chronic pain syndrome Social [...] syndrome documented in this encounter Care Teams Nuclear Power Plant Engineer Relationship Specialty Start Date End Date Krystyna Bose PA-C PCP - General Family Medicine 10/31/22 documented as of this encounter
--- OUTSIDE RECORDS SUMMARY | 2025-08-23 14:34 | XMS_ITS | Encounter Summary ---
Author Organization [facility] Address [address] [facility] [address] [place] [address] Phone Care Team Providers Care Line Painting Machine Operator Name Role Phone Meron Villalobos MD Primary Care Provider [phone]- [phone] Encounter Details Date Type Department Care Team (Latest Contact Info) Description 12/24/2020 Transcribe Orders Virtual Department [address] [place] [address] [facility], TOMAS [address] [place] [address] [email or web address] Heavy smoker (Primary Dx) Social History Tobacco Use [...] as of this encounter Visit Diagnoses Diagnosis Heavy smoker- Primary documented in this encounter Care Teams Line Painting Machine Operator Relationship Specialty Start Date End Date Meron Villalobos MD PCP - General 09/07/17 documented as of this encounter Additional Source Comments The information contained in this document represents components of the legal health record. It is not the complete legal health record.[facility]
--- OUTSIDE RECORDS SUMMARY | 2025-08-23 14:34 | XMS_ITS | Encounter Summary ---
Author Organization [facility] Address [address] [place] [address] Phone Care Team Providers Care Lock Operator Name Role Phone Meron Villalobos MD Primary Care Provider [phone]- [phone] Meron Villalobos MD Unavailable [phone] Encounter Details Date Type Department Care Team (Late st Contact Info) Description 01/21/2018 Ancillary Orders Virtual Department [address] [place] [address] Meron Villalobos MD [address] [place] [address] Breast screening Social History Tobacco Use Types Packs/Day Years [...] Diagnoses Diagnosis Breast screening Breast screening, unspecified documented in this encounter Care Teams Lock Operator Relationship Specialty Start Date End Date Meron Villalobos MD PCP - General 09/07/17 Meron Villalobos MD [address] [place] [address] Insurance Assigned Provider 03/26/1902/28 documented as of this encounter Additional Source Comments The information contained in this document represents components of the legal health record. It is not the complete legal health record.[facility]
--- OUTSIDE RECORDS SUMMARY | 2025-08-23 14:34 | XMS_ITS | Encounter Summary ---
Author Organization [employer] [facility] Address [address] [facility] 7t [place] [address] Care Team Providers Care Oracle Financials Developer Name Role Phone Krystyna Bose PA-C Primary Care Provider Unav ailable Reason for Visit * Reason Comments Med Refill Encounter Details Date Type Department Care Team (Late st Contact Info) Description 03/22/2025 Refill [place] [facility] [address] [place] [address] [facility] [address] [place] [address] Social History Tobacco Use Types Packs/Day Years [...] the past 12 months, has t he [employer] threatened to shut [...] on filedocumented in this encounter Care Teams [employer] Financials Developer Relationship Specialty Start Date End Date Krystyna Bose PA-C PCP - General Family Medicine 10/31/22 documented as of this encounter
--- OUTSIDE RECORDS SUMMARY | 2025-08-23 14:34 | XMS_ITS | Encounter Summary ---
Author Organization [facility] Address [address] [place] [address] 7 [place] [address] Care Team Providers Care Industrial Sociologist Name Role Phone Krystyna Bose PA-C Primary Care Provider Unav ailable Encounter Details Date Type Department Care Team (Late st Contact Info) Description 11/05/2023 Orders Only [facility] Information Management [address] [place] [address] Krystyna Bose PA-C Social History Tobacco Use [...] on filedocumented in this encounter Care Teams Industrial Sociologist Relationship Specialty Start Date End Date Krystyna Bose PA-C PCP - General Family Medicine 10/31/22 documented as of this encounter
--- OUTSIDE RECORDS SUMMARY | 2025-08-23 14:34 | XMS_ITS | Encounter Summary ---
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 Name Role Phone Meron Villalobos MD Primary Care Provider [phone] Reason for Referral * MRI/CAT Scan - Closed Specialty Diagnoses / Procedures Referred By Contac t Referred To Contact Radiology Diagnoses Chronic pain syndrome Procedures MRI Lumbar Spine CHG MRI, LUMBAR SPINE Shaista Carranza CNP Phone: tel: fax: Referral ID Status Reason Start Date Expiration Date Visits Re quested Visits Authorized [id number] Closed 12/08/2024 02/06/2025 1 1 * MRI/CAT Scan - Closed Specialty Diagnoses / Procedures Referred By Contac t Referred To Contact Radiology Diagnoses Chronic pain syndrome Procedures MRI Thoracic Spine CHG MRI, DORSAL SPINE Shaista Carranza CNP Phone: tel: fax: Referral ID Status Reason Start Date Expiration Date Visits Re quested Visits Authorized [id number] Closed 12/08/2024 02/06/2025 1 1 * MRI/CAT Scan - Closed Specialty Diagnoses / Procedures Referred By Contac t Referred To Contact Radiology Diagnoses Chronic pain syndrome Procedures MRI Cervical Spine CHG MRI, CERV SPINE Shaista Carranza CNP Phone: tel: fax: Referral ID Status Reason Start Date Expiration Date Visits Re quested Visits Authorized [id number] Closed 12/08/2024 02/06/2025 1 1 Encounter Details Date Type Department Care Team (Latest Contact Info) Description 12/08/2024 Transcribe Orders Virtual Department [address] [place] [address] Shaista Carranza, JACKELINE [address] [place] [address] Chronic pain syndrome (Primary Dx) Social History Tobacco Use Types [...] documented as of this encounter Results * MRI LUMBAR SPINE (NEURO) WITHOUT CONTRAST (01/07/2025 2:59 PM EST) Anatomical Region Laterality Modality L-spine Magnetic Resonan ce 01/10/2025 12:5 2 PM EST Impressions 01/10/2025 1:05 PM EST 1. Cervical degenerative disc disease with severe spinal canal narrowing at C4-5 and moderate spinal canal narrowing at C5-6. 2. Normal thoracic spine MRI. 3. L5-S1 posterior lumbar fusion. Grade 1 spondylolisthesis at L4-5. Moderate spinal canal and right neural foraminal narrowing at L4-5. Narrative 01/10/2025 1:05 PM EST MRI THORACIC SPINE (NEURO) WITHOUT CONTRAST, MRI LUMBAR SPINE (NEURO) WITHOUT CONTRAST, MRI CERVICAL SPINE (NEURO) FOCUS WITHOUT CONTRAST Referring clinician's provided indication for this examination in Epic: Outside Radiology Order; PREVIUS L5-S1 FUSION 1992 TECHNIQUE: MRI THORACIC SPINE (NEURO) WITHOUT CONTRAST, MRI LUMBAR SPINE (NEURO) WITHOUT CONTRAST, MRI CERVICAL SPINE (NEURO) FOCUS WITHOUT CONTRAST Multi-sequence, multi-planar MRI of the cervical spine was performed without intravenous contrast. Multi-sequence, multi-planar MRI of the thoracic spine was performed without intravenous contrast. Multi-sequence, multi-planar MRI of the lumbar spine was performed without intravenous contrast. COMPARISON: Cervical and thoracic spine radiographs September 17, 2015 FINDINGS: CERVICAL SPINE: Alignment and Vertebrae: There is slight spondylolisthesis at C3-4. Marrow: No bone marrow replacing lesion. 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 There is marrow edema related to degenerative change at the C4-7 levels. There is marrow edema related to facet arthropathy at bilateral C7-T1. Spinal Cord: The cord is flattened at the C4-5 level. No abnormal signal is identified within the cervical cord. Soft Tissue: Normal. No prevertebral edema. Findings by level: C2-C3: No spinal canal or right neural foraminal narrowing is mild left neural foraminal narrowing. C3-C4: No spinal canal narrowing. There is mild right and moderate left neural foraminal narrowing. C4-C5: There is severe spinal canal narrowing due to broad-based disc osteophyte complex narrowing and endplate metformin. There is severe bilateral neural foraminal narrowing. C5-C6: There is moderate spinal canal narrowing due to broad-based discussed by complex. There is moderate left and severe right neural foraminal narrowing. C6-C7: There is mild spinal canal narrowing due to broad-based disc osteophyte complex. There is mild left neural foraminal narrowing. No right neural foraminal narrowing C7-T1: No spinal canal or left neural foraminal narrowing. There is moderate right neural foraminal narrowing. THORACIC SPINE: Alignment and Vertebrae: Normal alignment. No compression fracture. Marrow: No bone marrow replacing lesion. Discs and Endplates: Normal intervertebral disc heights and signal. Spinal Cord: Normal. No spinal cord compression or signal abnormality. Soft Tissue: Normal. No prevertebral edema. Other Findings: None. LUMBAR SPINE: Alignment and Vertebrae: L5-S1 posterior lumbar fusion. Grade 1 spondylolisthesis at L4-5. No lumbar compression fracture. Marrow: No bone marrow replacing lesion. Discs and Endplates: There is mild intervertebral disc at loss L4-5. Conus: The conus terminates at the T12-L1 level. The conus appears normal in signal intensity. Soft Tissues: Normal. No prevertebral edema. Other Findings: Sigmoid diverticulosis. Findings by level: T12-L1: No spinal canal or neural foraminal narrowing. L1-L2: No spinal canal or neural foraminal narrowing. L2-L3: No spinal canal or neural foraminal narrowing. L3-L4: There is mild spinal canal and bilateral neural foraminal narrowing due to a disc bulge and facet arthropathy. L4-L5: There is grade 1 spondylolisthesis. There is moderate spinal canal narrowing due to spondylolisthesis and facet arthropathy. There is moderate right neural foraminal narrowing. No left neural foraminal narrowing. L5-S1: The spinal canal is difficult to evaluate due to artifact related to the posterior fusion hardware. No definite disc herniation. No high-grade spinal canal or neural foraminal narrowing. Procedure Note Ede Hayes, DO - 01/10/2025 MRI THORACIC SPINE (NEURO) WITHOUT CONTRAST, MRI LUMBAR SPINE (NEURO)WITHOUT CONTRAST, MRI CERVICAL SPINE (NEURO) FOCUS WITHOUT CONTRAST Referring clinician's provided indication for this examination in Epic:Outside Radiology Order; PREVIUS L5-S1 FUSION 1992 TECHNIQUE: MRI THORACIC SPINE (NEURO) WITHOUT CONTRAST, MRI LUMBAR SPINE(NEURO) WITHOUT CONTRAST, MRI CERVICAL SPINE (NEURO) FOCUS WITHOUTCONTRAST Multi-sequence, multi-planar MRI of the cervical spine was performedwithout intravenous contrast. Multi-sequence, multi-planar MRI of the thoracic spine was performedwithout intravenous contrast. Multi-sequence, multi-planar MRI of the lumbar spine was performed withoutintravenous contrast. COMPARISON: Cervical and thoracic spine radiographs September 17, 2015 FINDINGS: CERVICAL SPINE: Alignment and Vertebrae: There is slight spondylolisthesis at C3-4. Marrow: No bone marrow replacing lesion. 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 There is marrow edema related todegenerative change at the C4-7 levels. There is marrow edema related tofacet arthropathy at bilateral C7-T1. Spinal Cord: The cord is flattened at the C4-5 level. No abnormal signalis identified within the cervical cord. Soft Tissue: Normal. No prevertebral edema. Findings by level: C2-C3: No spinal canal or right neural foraminal narrowing is mild leftneural foraminal narrowing. C3-C4: No spinal canal narrowing. There is mild right and moderate leftneural foraminal narrowing. C4-C5: There is severe spinal canal narrowing due to broad-based discosteophyte complex narrowing and endplate metformin. There is severebilateral neural foraminal narrowing. C5-C6: There is moderate spinal canal narrowing due to broad-baseddiscussed by complex. There is moderate left and severe right neuralforaminal narrowing. C6-C7: There is mild spinal canal narrowing due to broad-based discosteophyte complex. There is mild left neural foraminal narrowing. Noright neural foraminal narrowing C7-T1: No spinal canal or left neural foraminal narrowing. There ismoderate right neural foraminal narrowing. THORACIC SPINE: Alignment and Vertebrae: Normal alignment. No compression fracture. Marrow: No bone marrow replacing lesion. Discs and Endplates: Normal intervertebral disc heights and signal. Spinal Cord: Normal. No spinal cord compression or signal abnormality. Soft Tissue: Normal. No prevertebral edema. Other Findings: None. LUMBAR SPINE: Alignment and Vertebrae: L5-S1 posterior lumbar fusion. Grade 1spondylolisthesis at L4-5. No lumbar compression fracture. Marrow: No bone marrow replacing lesion. Discs and Endplates: There is mild intervertebral disc at loss L4-5. Conus: The conus terminates at the T12-L1 level. The conus appears normalin signal intensity. Soft Tissues: Normal. No prevertebral edema. Other Findings: Sigmoid diverticulosis. Findings by level: T12-L1: No spinal canal or neural foraminal narrowing. L1-L2: No spinal canal or neural foraminal narrowing. L2-L3: No spinal canal or neural foraminal narrowing. L3-L4: There is mild spinal canal and bilateral neural foraminal narrowingdue to a disc bulge and facet arthropathy. L4-L5: There is grade 1 spondylolisthesis. There is moderate spinal canalnarrowing due to spondylolisthesis and facet arthropathy. There ismoderate right neural foraminal narrowing. No left neural foraminalnarrowing. L5-S1: The spinal canal is difficult to evaluate due to artifact relatedto the posterior fusion hardware. No definite disc herniation. Nohigh-grade spinal canal or neural foraminal narrowing. IMPRESSION: 1. Cervical degenerative disc disease with severe spinal canal narrowingat C4-5 and moderate spinal canal narrowing at C5-6. 2. Normal thoracic spine MRI. 3. L5-S1 posterior lumbar fusion. Grade 1 spondylolisthesis at L4-5.Moderate spinal canal and right neural foraminal narrowing at L4-5. Shaista Carranza [facility] MR XSPECIALTY Final Result * MRI THORACIC SPINE (NEURO) WITHOUT CONTRAST (01/07/2025 2:59 PM EST) Anatomical Region Laterality Modality T-spine Magnetic Resonan ce 01/10/2025 12:5 2 PM EST Impressions 01/10/2025 1:05 PM EST 1. Cervical degenerative disc disease with severe spinal canal narrowing at C4-5 and moderate spinal canal narrowing at C5-6. 2. Normal thoracic spine MRI. 3. L5-S1 posterior lumbar fusion. Grade 1 spondylolisthesis at L4-5. Moderate spinal canal and right neural foraminal narrowing at L4-5. Narrative 01/10/2025 1:05 PM EST MRI THORACIC SPINE (NEURO) WITHOUT CONTRAST, MRI LUMBAR SPINE (NEURO) WITHOUT CONTRAST, MRI CERVICAL SPINE (NEURO) FOCUS WITHOUT CONTRAST Referring clinician's provided indication for this examination in Epic: Outside Radiology Order; PREVIUS L5-S1 FUSION 1992 TECHNIQUE: MRI THORACIC SPINE (NEURO) WITHOUT CONTRAST, MRI LUMBAR SPINE (NEURO) WITHOUT CONTRAST, MRI CERVICAL SPINE (NEURO) FOCUS WITHOUT CONTRAST Multi-sequence, multi-planar MRI of the cervical spine was performed without intravenous contrast. Multi-sequence, multi-planar MRI of the thoracic spine was performed without intravenous contrast. Multi-sequence, multi-planar MRI of the lumbar spine was performed without intravenous contrast. COMPARISON: Cervical and thoracic spine radiographs September 17, 2015 FINDINGS: CERVICAL SPINE: Alignment and Vertebrae: There is slight spondylolisthesis at C3-4. Marrow: No bone marrow replacing lesion. 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 There is marrow edema related to degenerative change at the C4-7 levels. There is marrow edema related to facet arthropathy at bilateral C7-T1. Spinal Cord: The cord is flattened at the C4-5 level. No abnormal signal is identified within the cervical cord. Soft Tissue: Normal. No prevertebral edema. Findings by level: C2-C3: No spinal canal or right neural foraminal narrowing is mild left neural foraminal narrowing. C3-C4: No spinal canal narrowing. There is mild right and moderate left neural foraminal narrowing. C4-C5: There is severe spinal canal narrowing due to broad-based disc osteophyte complex narrowing and endplate metformin. There is severe bilateral neural foraminal narrowing. C5-C6: There is moderate spinal canal narrowing due to broad-based discussed by complex. There is moderate left and severe right neural foraminal narrowing. C6-C7: There is mild spinal canal narrowing due to broad-based disc osteophyte complex. There is mild left neural foraminal narrowing. No right neural foraminal narrowing C7-T1: No spinal canal or left neural foraminal narrowing. There is moderate right neural foraminal narrowing. THORACIC SPINE: Alignment and Vertebrae: Normal alignment. No compression fracture. Marrow: No bone marrow replacing lesion. Discs and Endplates: Normal intervertebral disc heights and signal. Spinal Cord: Normal. No spinal cord compression or signal abnormality. Soft Tissue: Normal. No prevertebral edema. Other Findings: None. LUMBAR SPINE: Alignment and Vertebrae: L5-S1 posterior lumbar fusion. Grade 1 spondylolisthesis at L4-5. No lumbar compression fracture. Marrow: No bone marrow replacing lesion. Discs and Endplates: There is mild intervertebral disc at loss L4-5. Conus: The conus terminates at the T12-L1 level. The conus appears normal in signal intensity. Soft Tissues: Normal. No prevertebral edema. Other Findings: Sigmoid diverticulosis. Findings by level: T12-L1: No spinal canal or neural foraminal narrowing. L1-L2: No spinal canal or neural foraminal narrowing. L2-L3: No spinal canal or neural foraminal narrowing. L3-L4: There is mild spinal canal and bilateral neural foraminal narrowing due to a disc bulge and facet arthropathy. L4-L5: There is grade 1 spondylolisthesis. There is moderate spinal canal narrowing due to spondylolisthesis and facet arthropathy. There is moderate right neural foraminal narrowing. No left neural foraminal narrowing. L5-S1: The spinal canal is difficult to evaluate due to artifact related to the posterior fusion hardware. No definite disc herniation. No high-grade spinal canal or neural foraminal narrowing. Procedure Note Ede Hayes DO - 01/10/2025 MRI THORACIC SPINE (NEURO) WITHOUT CONTRAST, MRI LUMBAR SPINE (NEURO)WITHOUT CONTRAST, MRI CERVICAL SPINE (NEURO) FOCUS WITHOUT CONTRAST Referring clinician's provided indication for this examination in Epic:Outside Radiology Order; PREVIUS L5-S1 FUSION 1992 TECHNIQUE: MRI THORACIC SPINE (NEURO) WITHOUT CONTRAST, MRI LUMBAR SPINE(NEURO) WITHOUT CONTRAST, MRI CERVICAL SPINE (NEURO) FOCUS WITHOUTCONTRAST Multi-sequence, multi-planar MRI of the cervical spine was performedwithout intravenous contrast. Multi-sequence, multi-planar MRI of the thoracic spine was performedwithout intravenous contrast. Multi-sequence, multi-planar MRI of the lumbar spine was performed withoutintravenous contrast. COMPARISON: Cervical and thoracic spine radiographs September 17, 2015 FINDINGS: CERVICAL SPINE: Alignment and Vertebrae: There is slight spondylolisthesis at C3-4. Marrow: No bone marrow replacing lesion. 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 There is marrow edema related todegenerative change at the C4-7 levels. There is marrow edema related tofacet arthropathy at bilateral C7-T1. Spinal Cord: The cord is flattened at the C4-5 level. No abnormal signalis identified within the cervical cord. Soft Tissue: Normal. No prevertebral edema. Findings by level: C2-C3: No spinal canal or right neural foraminal narrowing is mild leftneural foraminal narrowing. C3-C4: No spinal canal narrowing. There is mild right and moderate leftneural foraminal narrowing. C4-C5: There is severe spinal canal narrowing due to broad-based discosteophyte complex narrowing and endplate metformin. There is severebilateral neural foraminal narrowing. C5-C6: There is moderate spinal canal narrowing due to broad-baseddiscussed by complex. There is moderate left and severe right neuralforaminal narrowing. C6-C7: There is mild spinal canal narrowing due to broad-based discosteophyte complex. There is mild left neural foraminal narrowing. Noright neural foraminal narrowing C7-T1: No spinal canal or left neural foraminal narrowing. There ismoderate right neural foraminal narrowing. THORACIC SPINE: Alignment and Vertebrae: Normal alignment. No compression fracture. Marrow: No bone marrow replacing lesion. Discs and Endplates: Normal intervertebral disc heights and signal. Spinal Cord: Normal. No spinal cord compression or signal abnormality. Soft Tissue: Normal. No prevertebral edema. Other Findings: None. LUMBAR SPINE: Alignment and Vertebrae: L5-S1 posterior lumbar fusion. Grade 1spondylolisthesis at L4-5. No lumbar compression fracture. Marrow: No bone marrow replacing lesion. Discs and Endplates: There is mild intervertebral disc at loss L4-5. Conus: The conus terminates at the T12-L1 level. The conus appears normalin signal intensity. Soft Tissues: Normal. No prevertebral edema. Other Findings: Sigmoid diverticulosis. Findings by level: T12-L1: No spinal canal or neural foraminal narrowing. L1-L2: No spinal canal or neural foraminal narrowing. L2-L3: No spinal canal or neural foraminal narrowing. L3-L4: There is mild spinal canal and bilateral neural foraminal narrowingdue to a disc bulge and facet arthropathy. L4-L5: There is grade 1 spondylolisthesis. There is moderate spinal canalnarrowing due to spondylolisthesis and facet arthropathy. There ismoderate right neural foraminal narrowing. No left neural foraminalnarrowing. L5-S1: The spinal canal is difficult to evaluate due to artifact relatedto the posterior fusion hardware. No definite disc herniation. Nohigh-grade spinal canal or neural foraminal narrowing. IMPRESSION: 1. Cervical degenerative disc disease with severe spinal canal narrowingat C4-5 and moderate spinal canal narrowing at C5-6. 2. Normal thoracic spine MRI. 3. L5-S1 posterior lumbar fusion. Grade 1 spondylolisthesis at L4-5.Moderate spinal canal and right neural foraminal narrowing at L4-5. Shaista Carranza [facility] IMG MR XSPECIALTY Final Result * MRI CERVICAL SPINE (NEURO) FOCUS WITHOUT CONTRAST (01/07/2025 2:59 PM EST) Anatomical Region Laterality Modality C-spine Magnetic Resonan ce 01/10/2025 12:5 2 PM EST Impressions 01/10/2025 1:05 PM EST 1. Cervical degenerative disc disease with severe spinal canal narrowing at C4-5 and moderate spinal canal narrowing at C5-6. 2. Normal thoracic spine MRI. 3. L5-S1 posterior lumbar fusion. Grade 1 spondylolisthesis at L4-5. Moderate spinal canal and right neural foraminal narrowing at L4-5. Narrative 01/10/2025 1:05 PM EST MRI THORACIC SPINE (NEURO) WITHOUT CONTRAST, MRI LUMBAR SPINE (NEURO) WITHOUT CONTRAST, MRI CERVICAL SPINE (NEURO) FOCUS WITHOUT CONTRAST Referring clinician's provided indication for this examination in Epic: Outside Radiology Order; PREVIUS L5-S1 FUSION 1992 TECHNIQUE: MRI THORACIC SPINE (NEURO) WITHOUT CONTRAST, MRI LUMBAR SPINE (NEURO) WITHOUT CONTRAST, MRI CERVICAL SPINE (NEURO) FOCUS WITHOUT CONTRAST Multi-sequence, multi-planar MRI of the cervical spine was performed without intravenous contrast. Multi-sequence, multi-planar MRI of the thoracic spine was performed without intravenous contrast. Multi-sequence, multi-planar MRI of the lumbar spine was performed without intravenous contrast. COMPARISON: Cervical and thoracic spine radiographs September 17, 2015 FINDINGS: CERVICAL SPINE: Alignment and Vertebrae: There is slight spondylolisthesis at C3-4. Marrow: No bone marrow replacing lesion. 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 There is marrow edema related to degenerative change at the C4-7 levels. There is marrow edema related to facet arthropathy at bilateral C7-T1. Spinal Cord: The cord is flattened at the C4-5 level. No abnormal signal is identified within the cervical cord. Soft Tissue: Normal. No prevertebral edema. Findings by level: C2-C3: No spinal canal or right neural foraminal narrowing is mild left neural foraminal narrowing. C3-C4: No spinal canal narrowing. There is mild right and moderate left neural foraminal narrowing. C4-C5: There is severe spinal canal narrowing due to broad-based disc osteophyte complex narrowing and endplate metformin. There is severe bilateral neural foraminal narrowing. C5-C6: There is moderate spinal canal narrowing due to broad-based discussed by complex. There is moderate left and severe right neural foraminal narrowing. C6-C7: There is mild spinal canal narrowing due to broad-based disc osteophyte complex. There is mild left neural foraminal narrowing. No right neural foraminal narrowing C7-T1: No spinal canal or left neural foraminal narrowing. There is moderate right neural foraminal narrowing. THORACIC SPINE: Alignment and Vertebrae: Normal alignment. No compression fracture. Marrow: No bone marrow replacing lesion. Discs and Endplates: Normal intervertebral disc heights and signal. Spinal Cord: Normal. No spinal cord compression or signal abnormality. Soft Tissue: Normal. No prevertebral edema. Other Findings: None. LUMBAR SPINE: Alignment and Vertebrae: L5-S1 posterior lumbar fusion. Grade 1 spondylolisthesis at L4-5. No lumbar compression fracture. Marrow: No bone marrow replacing lesion. Discs and Endplates: There is mild intervertebral disc at loss L4-5. Conus: The conus terminates at the T12-L1 level. The conus appears normal in signal intensity. Soft Tissues: Normal. No prevertebral edema. Other Findings: Sigmoid diverticulosis. Findings by level: T12-L1: No spinal canal or neural foraminal narrowing. L1-L2: No spinal canal or neural foraminal narrowing. L2-L3: No spinal canal or neural foraminal narrowing. L3-L4: There is mild spinal canal and bilateral neural foraminal narrowing due to a disc bulge and facet arthropathy. L4-L5: There is grade 1 spondylolisthesis. There is moderate spinal canal narrowing due to spondylolisthesis and facet arthropathy. There is moderate right neural foraminal narrowing. No left neural foraminal narrowing. L5-S1: The spinal canal is difficult to evaluate due to artifact related to the posterior fusion hardware. No definite disc herniation. No high-grade spinal canal or neural foraminal narrowing. Procedure Note FreddyEde Phillip, DO - 01/10/2025 MRI THORACIC SPINE (NEURO) WITHOUT CONTRAST, MRI LUMBAR SPINE (NEURO)WITHOUT CONTRAST, MRI CERVICAL SPINE (NEURO) FOCUS WITHOUT CONTRAST Referring clinician's provided indication for this examination in Epic:Outside Radiology Order; PREVIUS L5-S1 FUSION 1992 TECHNIQUE: MRI THORACIC SPINE (NEURO) WITHOUT CONTRAST, MRI LUMBAR SPINE(NEURO) WITHOUT CONTRAST, MRI CERVICAL SPINE (NEURO) FOCUS WITHOUTCONTRAST Multi-sequence, multi-planar MRI of the cervical spine was performedwithout intravenous contrast. Multi-sequence, multi-planar MRI of the thoracic spine was performedwithout intravenous contrast. Multi-sequence, multi-planar MRI of the lumbar spine was performed withoutintravenous contrast. COMPARISON: Cervical and thoracic spine radiographs September 17, 2015 FINDINGS: CERVICAL SPINE: Alignment and Vertebrae: There is slight spondylolisthesis at C3-4. Marrow: No bone marrow replacing lesion. 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 There is marrow edema related todegenerative change at the C4-7 levels. There is marrow edema related tofacet arthropathy at bilateral C7-T1. Spinal Cord: The cord is flattened at the C4-5 level. No abnormal signalis identified within the cervical cord. Soft Tissue: Normal. No prevertebral edema. Findings by level: C2-C3: No spinal canal or right neural foraminal narrowing is mild leftneural foraminal narrowing. C3-C4: No spinal canal narrowing. There is mild right and moderate leftneural foraminal narrowing. C4-C5: There is severe spinal canal narrowing due to broad-based discosteophyte complex narrowing and endplate metformin. There is severebilateral neural foraminal narrowing. C5-C6: There is moderate spinal canal narrowing due to broad-baseddiscussed by complex. There is moderate left and severe right neuralforaminal narrowing. C6-C7: There is mild spinal canal narrowing due to broad-based discosteophyte complex. There is mild left neural foraminal narrowing. Noright neural foraminal narrowing C7-T1: No spinal canal or left neural foraminal narrowing. There ismoderate right neural foraminal narrowing. THORACIC SPINE: Alignment and Vertebrae: Normal alignment. No compression fracture. Marrow: No bone marrow replacing lesion. Discs and Endplates: Normal intervertebral disc heights and signal. Spinal Cord: Normal. No spinal cord compression or signal abnormality. Soft Tissue: Normal. No prevertebral edema. Other Findings: None. LUMBAR SPINE: Alignment and Vertebrae: L5-S1 posterior lumbar fusion. Grade 1spondylolisthesis at L4-5. No lumbar compression fracture. Marrow: No bone marrow replacing lesion. Discs and Endplates: There is mild intervertebral disc at loss L4-5. Conus: The conus terminates at the T12-L1 level. The conus appears normalin signal intensity. Soft Tissues: Normal. No prevertebral edema. Other Findings: Sigmoid diverticulosis. Findings by level: T12-L1: No spinal canal or neural foraminal narrowing. L1-L2: No spinal canal or neural foraminal narrowing. L2-L3: No spinal canal or neural foraminal narrowing. L3-L4: There is mild spinal canal and bilateral neural foraminal narrowingdue to a disc bulge and facet arthropathy. L4-L5: There is grade 1 spondylolisthesis. There is moderate spinal canalnarrowing due to spondylolisthesis and facet arthropathy. There ismoderate right neural foraminal narrowing. No left neural foraminalnarrowing. L5-S1: The spinal canal is difficult to evaluate due to artifact relatedto the posterior fusion hardware. No definite disc herniation. Nohigh-grade spinal canal or neural foraminal narrowing. IMPRESSION: 1. Cervical degenerative disc disease with severe spinal canal narrowingat C4-5 and moderate spinal canal narrowing at C5-6. 2. Normal thoracic spine MRI. 3. L5-S1 posterior lumbar fusion. Grade 1 spondylolisthesis at L4-5.Moderate spinal canal and right neural foraminal narrowing at L4-5. [facility] Final Result documented in this encounter Visit Diagnoses Diagnosis Chronic pain syndrome- Primary Chronic pain syndrome documented in this encounter Care Teams Conveyor Console Operator Relationship Specialty Start Date End Date Meron Villalobos MD [email or web address] PCP - General 09/07/17 documented as of this encounter Additional Source Comments The information contained in this document represents components of the legal health record. It is not the complete legal health record.[facility]
--- OUTSIDE RECORDS SUMMARY | 2025-08-23 14:34 | XMS_ITS | Encounter Summary ---
Author Organization [facility] Address [address] [address] Phone Care Team Providers Care Radiology Director Name Role Phone Meron Villalobos MD Primary Care Provider +1- [phone] Encounter Details Date Type Department Care Team (Latest Contact Info) Description 11/04/2022 Transcribe Orders Virtual Department 30 [place] [address] Krystyna Bose PA [address] [place] [address]. [place] [address] [email or web address] Breast screening (Primary Dx) Social History Tobacco Use Types [...] of this encounter Visit Diagnoses Diagnosis Breast screening- Primary Breast screening, unspecified documented in this encounter Care Teams Radiology Director Relationship Specialty Start Date End Date Meron Villalobos MD PCP - General 09/07/17 documented as of this encounter Additional Source Comments The information contained in this document represents components of the legal health record. It is not the complete legal health record.[facility]
== END 2025-08-23 13:55 | disposition home or self-care (01) ==
LOC: HO.HNS 13:22
PROVIDERS: PCP Nurse Practitioner Family; Visit Provider Physician Assistant
DX: G95.9 Disease of spinal cord, unspecified (principal)
CPT/HCPCS: 99024

== ENCOUNTER → 2025-08-23 13:25 | Outpatient (BNV) | payer OTHER, SELFPAY | PROVIDERS: Visit Provider Radiology Diagnostic Radiology | DX: M50.221 Other cervical disc displacement at C4-C5 level (principal); M43.12 Spondylolisthesis, cervical region | CPT/HCPCS: 72050 ==

== ENCOUNTER 2025-09-14 13:29 | Outpatient (AMB) | payer OTHER, SELFPAY ==
--- NOTE | 2025-09-14 13:31 | A.SPINEOV_ITS ---
Intake Visit Reasons: discuss Lumbar Issues Intake Note: Ms. Rosa is here today to Discuss lumbar issues. Process Engineering Technician Required: No Allergies amoxicillin Allergy (Intermediate, Verified 09/14/25 13:31) Rash erythromycin base Adverse Reaction (Intermediate, Verified 09/14/25 13:31) Gastrointestinal Upset Assessment & Plan Assessment & Plan (1) Spondylolisthesis, lumbar region: Code(s): M43.16 - Spondylolisthesis, lumbar region Category: Medical Plan Mrs Rosa came back to the office today to review her situation with her lumbar spine. Please see my original consultation for the indication for surgery on her lumbar spine. She is a previous fusion L5-S1 done through posterior approach. It was done by Dr. Federica smith in the . 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 Dr. Noguera and I had previously discussed the possibility of fusion on her after we treated her cervical spinal cord compression. Now that she has recovered from that she is interested in treating the back situation because of the intensity of the back pain and lower extremity pain. She has been through copious conservative treatment. I reviewed her imaging with her done at [facility]. I think Dr. Noguera would consider an oblique lumbar interbody fusion. I did review that procedure with her and her friend at length. They would like to do it sometime in the spring when she will have help around the house and to avoid any potential issues with the winter storm and the patient needing to shovel. I will get back to her with a final plan once I review everything with Dr. Noguera again. The patient was given risk and benefits of oblique lumbar interbody fusion surgery including but not limited to infection, hematoma, nerve injury, durotomy, weakness, bowel/bladder injury, persistent pain, and pseudoarthosis or instrumentation failure. We also discussed the option to continue with conservative treatment and patient wishes to proceed with surgery. They are aware they should stop NSAIDs 7 days prior to surgery. All questions were answered to the best of our ability. If there is anything about this patients medical history that we have overlooked or concerns you have about us proceeding with surgery we would appreciate any input you can offer Total amount of time spent in this visit was 20 minutes in discussion of symptoms, lumbar imaging results and subsequent plan of care Junito Noguera MD,PhD [facility] Coding Level of Care Code Est Pt Level 3 (90685) Diagnoses Spondylolisthesis, lumbar region M43.16
--- OUTSIDE RECORDS SUMMARY | 2025-09-14 17:01 | XMS_ITS | Encounter Summary ---
Author Organization [facility] Address [address] [place] [address] Phone Care Team Providers Care Tester Compressed Gases Name Role Phone Meron Villalobos MD Primary Care Provider [phone]- [phone] Encounter Details Date Type Department Care Team (Late st Contact Info) Description 12/08/2024 Procedure Pass [facility], [address] [address] Social History Tobacco Use Types Packs/Day Years [...] on filedocumented in this encounter Care Teams Tester Compressed Gases Relationship Specialty Start Date End Date Mreon Villalobos MD PCP - General 09/07/17 documented as of this encounter Additional Source Comments The information contained in this document represents components of the legal health record. It is not the complete legal health record.[facility]
--- OUTSIDE RECORDS SUMMARY | 2025-09-14 17:01 | XMS_ITS | Encounter Summary ---
Author Organization [facility] Address [address] [place] [address] Phone Care Team Providers Care It Applications Manager Name Role Phone Meron Villalobos MD Primary Care Provider [phone]- [phone] Encounter Details Date Type Department Care Team (Late st Contact Info) Description 12/08/2024 Procedure Pass [facility], [address] [address] Social History Tobacco Use Types Packs/Day Years [...] on filedocumented in this encounter Care Teams It Applications Manager Relationship Specialty Start Date End Date Meron Villalobos MD PCP - General 09/07/17 documented as of this encounter Additional Source Comments The information contained in this document represents components of the legal health record. It is not the complete legal health record.[facility]
--- OUTSIDE RECORDS SUMMARY | 2025-09-14 17:01 | XMS_ITS | Clinical Summary ---
Author Organization [facility] Address [address] [place], [place] [address] Phone Care Team Providers Care Property Utilization Manager Name Role Phone Meron Villalobos MD Primary Care Provider +1- [phone] Allergies Active Allergy Reactions Criticality Noted Date [...] topic Medical Devices Not on [place] [address] [place] [address] [place] [address] [place] [address] HMO [facility] [place] [address] [place] [address] [place] [address] [place] [address] [place] [address] [place] [address] HMO Member Subscriber Plan / Payer (Ef fective 2020-Present) Name:Whitney Rosa Relation to Subscriber:Self Name:Whitney Rosa Payer ID:Not on file Type:O Address: [place] [id number] Care Teams Property Utilization Manager Relationship Specialty Start Date End Date Meron Villalobos MD PCP - General 09/07/17 Additional Source Comments The information contained in this document represents components of the legal health record. It is not the complete legal health record.[facility]
--- OUTSIDE RECORDS SUMMARY | 2025-09-14 17:01 | XMS_ITS | Encounter Summary ---
Author Organization [facility] Address [address] [place] [address] Phone Care Team Providers Care Student Support Services Director Name Role Phone Meron Villalobos MD Primary Care Provider +1- [phone] Encounter Details Date Type Department Care Team (Late st Contact Info) Description 12/08/2024 Procedure Pass [facility], [address] [address] Social History Tobacco Use Types Packs/Day Years [...] on filedocumented in this encounter Care Teams Student Support Services Director Relationship Specialty Start Date End Date Meron Villalobos MD PCP - General 09/07/17 documented as of this encounter Additional Source Comments The information contained in this document represents components of the legal health record. It is not the complete legal health record.[facility]
--- OUTSIDE RECORDS SUMMARY | 2025-09-14 17:01 | XMS_ITS | Encounter Summary ---
Author Organization [employer] Address [address] [facility] 7t [place] [address] Care Team Providers Care Spareribs Trimmer Name Role Phone Krystyna Bose PA-C Primary Care Provider Unav ailable Pcp, Den Unassigned Primary Care Provider U navailable Reason for Visit * Reason Comments Med Refill Encounter Details Date Type Department Care Team (Late st Contact Info) Description 03/22/[address] [facility] [address] [place] [address] [place], [place], [facility] [address] [place] [address] Social History Tobacco Use Types Packs/Day Years [...] on filedocumented in this encounter Care Teams Spareribs Trimmer Relationship Specialty Start Date End Date Krystyna Bose PA-C PCP - General Family Medicine 10/31/22 08/23/25 Den Hernandez Unassigned PCP - General Family Medicine 08/24/25 documented as of this encounter
--- OUTSIDE RECORDS SUMMARY | 2025-09-14 17:01 | XMS_ITS | Encounter Summary ---
Author Organization [employer] Address [address] [place] [address] 7 [place] [address] Care Team Providers Care Keeper Head Name Role Phone Krystyna Bose PA-C Primary Care Provider Unav ailable Pcp, Den Unassigned Primary Care Provider U navailable Reason for Visit * Reason Comments Med Refill Encounter Details Date Type Department Care Team (Late st Contact Info) Description 07/04/2025 Refill Den [facility] [address] [place] [address] Shaista Carranza FNP [address] [place] [address] Fibromyalgia Social History Tobacco Use Types Packs/Day [...] myositis documented in this encounter Care Teams Keeper Head Relationship Specialty Start Date End Date Krystyna Bose PA-C PCP - General Family Medicine 10/31/22 08/23/25 Den Hernandez Unassigned PCP - General Family Medicine 08/24/25 documented as of this encounter
--- OUTSIDE RECORDS SUMMARY | 2025-09-14 17:01 | XMS_ITS | Encounter Summary ---
Author Organization [employer] Address 75 [facility] 7t [place] [address] Care Team Providers Care Continuity Writer Name Role Phone Krystyna Bose PA-C Primary Care Provider Unav ailable Pcp, Den Unassigned Primary Care Provider U navailable Encounter Details Date Type Department Care Team (Late st Contact Info) Description 05/17/2025 Orders Only Den [facility] [address] [place] [address] Shaista Carranza FNP [address] [place] [address] Routine health maintenance (Primary Dx) Social History [...] Agency Comment Performed at: 01 - [facility] [address] [id number] [employer]: Holly Son MD, Phone: [phone] Shaista Dillon BIAS BINDING FOLDER LAB BLOOD ORDERABLES Koki l Result [facility] [...] Agency Comment Performed at: 01 - [facility] [address] [id number] [employer]: Holly Son MD, Phone: [phone] Shaista [facility] LAB BLOOD ORDERABLES [place] de [place] vega Result [facility] 1 documented in this encounter Visit Diagnoses Diagnosis Routine health maintenance- Primary Unspecified examination documented in this encounter Care Teams Continuity Writer Relationship Specialty Start Date End Date Krystyna Bose PA-C PCP - General Family Medicine 10/31/22 08/23/25 Den Hernandez Unassigned PCP - General Family Medicine 08/24/25 documented as of this encounter
--- OUTSIDE RECORDS SUMMARY | 2025-09-14 17:02 | XMS_ITS | Encounter Summary ---
Author Organization [facility] Address [address] [place], [place] [address] Phone Care Team Providers Care Strike Planning Applications Name Role Phone Meron Villalobos MD Primary Care Provider +1- [phone] Reason for Referral * MRI/CAT Scan - Closed Specialty Diagnoses / Procedures Referred By Contac t Referred To Contact Radiology Diagnoses Chronic pain syndrome Procedures MRI Lumbar Spine CHG MRI, LUMBAR SPINE Shaista Carranza CNP Phone: tel: fax: Referral ID Status Reason Start Date Expiration Date Visits Re quested Visits Authorized [id number] Closed 12/08/2024 02/06/2025 1 1 * MRI/CAT Scan - Closed Specialty Diagnoses / Procedures Referred By Contac t Referred To Contact Radiology Diagnoses Chronic pain syndrome Procedures MRI Thoracic Spine CHG MRI, DORSAL SPINE Shaista Carranza CNP Phone: tel: fax: Referral ID Status Reason Start Date Expiration Date Visits Re quested Visits Authorized [id number] Closed 12/08/2024 02/06/2025 1 1 * MRI/CAT Scan - Closed Specialty Diagnoses / Procedures Referred By Contac t Referred To Contact Radiology Diagnoses Chronic pain syndrome Procedures MRI Cervical Spine CHG MRI, CERV SPINE Shaista Carranza CNP Phone: tel: fax: Referral ID Status Reason Start Date Expiration Date Visits Re quested Visits Authorized [id number] Closed 12/08/2024 02/06/2025 1 1 Encounter Details Date Type Department Care Team (Latest Contact Info) Description 12/08/2024 Transcribe Orders Virtual Department [address] [place] [address] Shaista Carranza, JACKELINE [address] [place] [address] Chronic pain syndrome (Primary Dx) Social History [...] neural foraminal narrowing at L4-5. Shaista Carranza [facility] MR XSPECIALTY Final Result * MRI [...] neural foraminal narrowing at L4-5. Shaista Carranza [facility] IMG MR XSPECIALTY Final Result * [...] neural foraminal narrowing at L4-5. [facility] Final Result documented in this encounter Visit Diagnoses Diagnosis Chronic pain syndrome- Primary Chronic pain syndrome documented in this encounter Care Teams Strike Planning Applications Relationship Specialty Start Date End Date Meron Villalobos MD [email or web address] [email or web address] PCP - General 09/07/17 documented as of this encounter Additional Source Comments The information contained in this document represents components of the legal health record. It is not the complete legal health record.[facility]
--- OUTSIDE RECORDS SUMMARY | 2025-09-14 17:02 | XMS_ITS | Encounter Summary ---
Author Organization [facility] Address [address] [address] Phone Care Team Providers Care Installer Molding And Trim Name Role Phone Meron Villalobos MD Primary Care Provider +1- [phone] Encounter Details Date Type Department Care Team (Late st Contact Info) Description 02/13/2023 Procedure Pass [facility] [address] [place] [address] Social History Tobacco Use Types Packs/Day Years [...] on filedocumented in this encounter Care Teams Installer Molding And Trim Relationship Specialty Start Date End Date Meron Villalobos MD PCP - General 09/07/17 documented as of this encounter Additional Source Comments The information contained in this document represents components of the legal health record. It is not the complete legal health record.[facility]
--- OUTSIDE RECORDS SUMMARY | 2025-09-14 17:02 | XMS_ITS | Encounter Summary ---
Author Organization [employer] Address [address] [place] [address] 7 [place] [address] Care Team Providers Care Revenue Collector Name Role Phone Krystyna Bose PA-C Primary Care Provider Unav ailable PcpDen Unassigned Primary Care Provider U navailable Encounter Details Date Type Department Care Team (Late st Contact Info) Description 11/05/2023 Orders Only [facility] [address] [place] [address] Krystyna Bose PA-C Social History Tobacco Use [...] on filedocumented in this encounter Care Teams Revenue Collector Relationship Specialty Start Date End Date Krystyna Bose PA-C PCP - General Family Medicine 10/31/22 08/23/25 Den Hernandez Unassigned PCP - General Family Medicine 08/24/25 documented as of this encounter
--- OUTSIDE RECORDS SUMMARY | 2025-09-14 17:02 | XMS_ITS | Encounter Summary ---
Author Organization [facility] Address [address] [place] [address] Phone Care Team Providers Care Distribution Tech Name Role Phone Meron Villalobos MD Primary Care Provider [phone]- [phone] Encounter Details Date Type Department Care Team (Latest Contact Info) Description 12/24/2020 Transcribe Orders Virtual Department [address] [place] [address] [facility], TOMAS [address] [place] [address] [email or web address] Heavy smoker (Primary Dx) Social [...] Primary documented in this encounter Care Teams Distribution Tech Relationship Specialty Start Date End Date Meron Villalobos MD PCP - General 09/07/17 documented as of this encounter Additional Source Comments The information contained in this document represents components of the legal health record. It is not the complete legal health record.[facility]
--- OUTSIDE RECORDS SUMMARY | 2025-09-14 17:02 | XMS_ITS | Encounter Summary ---
Author Organization [employer] Address [address] [place] [address] 7 [place] [address] Care Team Providers Care Resource Program Teacher Name Role Phone Krystyna Bose PA-C Primary Care Provider Unav ailable Pcp, Den Unassigned Primary Care Provider U navailable Reason for Visit * Reason Comments Med Refill Encounter Details Date Type Department Care Team (Late st Contact Info) Description 11/10/2024 Refill Den [facility] [address] [place] [address] Bharti James MD [address] [place] [address] Fibromyalgia Social History Tobacco Use Types Packs/Day [...] myositis documented in this encounter Care Teams Resource Program Teacher Relationship Specialty Start Date End Date Krystyna Bose PA-C PCP - General Family Medicine 10/31/22 08/23/25 Den Hernandez Unassigned PCP - General Family Medicine 08/24/25 documented as of this encounter
--- OUTSIDE RECORDS SUMMARY | 2025-09-14 17:02 | XMS_ITS | Encounter Summary ---
Author Organization [facility] Address [address] [place] [address] Phone Care Team Providers Care Boom Operator Name Role Phone Meron Villalobos MD Primary Care Provider +1- [phone] Meron Villalobos MD Unavailable [phone] Encounter Details Date Type Department Care Team (Late st Contact Info) Description 01/21/2018 Ancillary Orders Virtual Department [address] [place] [address] Meron Villalobos MD [address] [place] [address] Breast screening Social History Tobacco Use Types [...] unspecified documented in this encounter Care Teams Boom Operator Relationship Specialty Start Date End Date Meron Villalobos MD PCP - General 09/07/17 Meron Villalobos MD [address] [place] [address] Insurance Assigned Provider 03/26/1902/28 documented as of this encounter Additional Source Comments The information contained in this document represents components of the legal health record. It is not the complete legal health record.[facility]
--- OUTSIDE RECORDS SUMMARY | 2025-09-14 17:02 | XMS_ITS | Encounter Summary ---
Author Organization [facility] Address [address] [place] [address] Phone Care Team Providers Care Team Assembler Name Role Phone Meron Villalobos MD Primary Care Provider [phone]- [phone] Encounter Details Date Type Department Care Team (Late st Contact Info) Description 08/16/2020 Ancillary Orders Virtual Department 30 [place] [address] [facility], TOMAS [address] [place] [address] [email or web address] Breast screening; Smoker Social History Tobacco [...] disorder documented in this encounter Care Teams Team Assembler Relationship Specialty Start Date End Date Meron Villalobos MD PCP - General 09/07/17 documented as of this encounter Additional Source Comments The information contained in this document represents components of the legal health record. It is not the complete legal health record.[facility]
--- OUTSIDE RECORDS SUMMARY | 2025-09-14 17:02 | XMS_ITS | Encounter Summary ---
Author Organization [facility] Address [address] [place] [address] [place] [address] Phone Care Team Providers Care Field Checker Name Role Phone Meron Villalobos MD Primary Care Provider [phone]- [phone] Reason for Referral * Outpatient Procedure - Closed Specialty Diagnoses / Procedures Referred By Ping galindo Referred To Contact Radiology Diagnoses Shortness of breath Procedures Adult Echo TTE Krystyna Bose PA [address] [facility] [place] [address] Phone: tel: fax: mailto:[email or web address] Referral ID Status Reason Start Date Expiration Date Visits Re quested Visits Authorized [id number] Closed 02/13/2023 1 1 Encounter Details Date Type Department Care Team (Latest Contact Info) Description 02/13/2023 Transcribe Orders Virtual Department 30 [place] [address] Krystyna Bose PA [address] [place] [address]. [place] [address] [email or web address] Shortness of breath Social History Tobacco [...] breath documented in this encounter Care Teams Field Checker Relationship Specialty Start Date End Date Meron Villalobos MD [email or web address] PCP - General 09/07/17 documented as of this encounter Additional Source Comments The information contained in this document represents components of the legal health record. It is not the complete legal health record.[facility]
--- OUTSIDE RECORDS SUMMARY | 2025-09-14 17:02 | XMS_ITS | Encounter Summary ---
Author Organization [facility] Address [address] [address] Phone Care Team Providers Care Greens Planter Name Role Phone Meron Villalobos MD Primary Care Provider [phone]- [phone] Encounter Details Date Type Department Care Team (Latest Contact Info) Description 11/04/2022 Transcribe Orders Virtual Department 30 [place] [address] Krystyna Bose PA [address] [place] [address]. [place] [address] [email or web address] Breast screening (Primary Dx) Social History [...] unspecified documented in this encounter Care Teams Greens Planter Relationship Specialty Start Date End Date Meron Villalobos MD PCP - General 09/07/17 documented as of this encounter Additional Source Comments The information contained in this document represents components of the legal health record. It is not the complete legal health record.[facility]
--- OUTSIDE RECORDS SUMMARY | 2025-09-14 17:02 | XMS_ITS | Encounter Summary ---
Author Organization [employer] Address [address] [place] [address] 7 [place] [address] Care Team Providers Care Bloom Conveyor Operator Name Role Phone Krystyna Bose PA-C Primary Care Provider Unav ailable Pcp, Den Unassigned Primary Care Provider U navailable Reason for Visit * Reason Comments Med Refill Encounter Details Date Type Department Care Team (Late st Contact Info) Description 11/11/2024 Refill [place] [facility] [address] [place] [address] Bharti James MD [address] [place] [address] Fibromyalgia Social History Tobacco Use Types Packs/Day [...] myositis documented in this encounter Care Teams Bloom Conveyor Operator Relationship Specialty Start Date End Date Krystyna Bose PA-C PCP - General Family Medicine 10/31/22 08/23/25 Den Hernandezssigned PCP - General Family Medicine 08/24/25 documented as of this encounter
--- OUTSIDE RECORDS SUMMARY | 2025-09-14 17:02 | XMS_ITS | Encounter Summary ---
Author Organization [facility] Address [address] [place] [address] Phone Care Team Providers Care Rental Coordinator Name Role Phone Meron Villalobos MD Primary Care Provider [phone] Encounter Details Date Type Department Care Team (Latest Contact Info) Description 02/02/2024 Transcribe Orders Virtual Department [address] [place] [address] Krystyna Bose PA [address] [place] [address]. [place] [address] [email or web address] Cigarette smoker (Primary Dx) Social History [...] disorder documented in this encounter Care Teams Rental Coordinator Relationship Specialty Start Date End Date Meron Villalobos MD [email or web address] PCP - General 09/07/17 documented as of this encounter Additional Source Comments The information contained in this document represents components of the legal health record. It is not the complete legal health record.[facility]
--- OUTSIDE RECORDS SUMMARY | 2025-09-14 17:02 | XMS_ITS | Encounter Summary ---
Author Organization [email or web address] Address [address] [place] [address] 7 [place] [address] Care Team Providers Care Sanitation Engineer Name Role Phone Krystyna Bose PA-C Primary Care Provider Unav ailable PcpDen Unassigned Primary Care Provider U navailable Reason for Visit * Reason Comments Med Refill Encounter Details Date Type Department Care Team (Late st Contact Info) Description 01/06/2024 Refill Den [address] [address] Neema Lujan FNP Chronic pain syndrome Social [...] syndrome documented in this encounter Care Teams Sanitation Engineer Relationship Specialty Start Date End Date Krystyna Bose PA-C PCP - General Family Medicine 10/31/22 08/23/25 PcpDen Unassigned PCP - General Family Medicine 08/24/25 documented as of this encounter
--- OUTSIDE RECORDS SUMMARY | 2025-09-14 17:02 | XMS_ITS | Clinical Summary ---
Author Organization [employer] Address [address] [place] [address] 7 [place] [address] Care Team Providers Care Mussel Farmer Name Role Phone PcpDen Unassigned Primary Care [...] FOR INSOMNIA 90 tablet 03/01/20 25 Active gabapentin (Neurontin) 100 MG capsuleIndicati ons:Fibromyalgi a Take 2 capsules (200 mg) by mouth 2 times daily. 120 capsule 08/25/20 25 Active gabapentin (Neurontin) 600 MG tabletIndicatio ns:Fibromyalgia Take 1 tablet (600 mg) by mouth 2 times daily. 60 tablet 08/25/20 25 Active oxyCODONE (Roxicodone) 10 MG immediate release tabletIndicatio ns:Chronic pain syndrome,Histor y of lumbar fusion Take 1 tablet (10 mg) by mouth if needed in the morning, at noon, in the evening, and at bedtime for severe pain for up to 28 days. 112 tablet 08/25/20 25 025 Active metaxalone (Skelaxin) 800 MG tabletIndicatio ns:Chronic pain syndrome Take 1 tablet (800 mg) by mouth if needed in the morning and at bedtime for muscle spasms. 60 tablet 08/25/20 25 025 Active pravastatin (Pravachol) 20 MG tabletIndicatio ns:Hyperlipidem ia, unspecified TAKE 1 TABLET (20 MG) BY MOUTH ONCE PER DAY. 90 tablet 09/05/20 25 Active buPROPion SR (Wellbutrin SR) 150 MG 12 hr tabletIndicatio ns:Chronic pain syndrome TAKE 1 TABLET (150 MG) BY MOUTH 2 TIMES DAILY. DO NOT CRUSH, CHEW, OR SPLIT. 180 tablet 09/05/20 25 Active buPROPion SR (Wellbutrin SR) 150 MG 12 hr tabletIndicatio ns:Chronic pain syndrome Take 1 tablet (150 mg) by mouth 2 times daily. Do not crush, chew, or split. 180 tablet 03/24/20 25 025 Discontinued pravastatin (Pravachol) 20 MG tabletIndicatio ns:Hyperlipidem ia, unspecified Take 1 tablet (20 mg) by mouth Once per day. 90 tablet 03/24/20 25 025 Discontinued metaxalone (Skelaxin) 800 MG tabletIndicatio ns:Chronic pain syndrome Take 1 tablet (800 mg) by mouth if needed in the morning and at bedtime for muscle spasms. 60 tablet 07/27/20 25 025 Discontinued(Re order (will not trigger notification to Pharmacy)) oxyCODONE (Roxicodone) 10 MG immediate release tabletIndicatio ns:Chronic pain syndrome,Histor y of lumbar fusion Take 1 tablet (10 mg) by mouth if needed in the morning, at noon, in the evening, and at bedtime for severe pain for up to 28 days. 112 tablet 07/27/20 25 025 Discontinued(Re order (will not trigger notification to Pharmacy)) gabapentin (Neurontin) 100 MG capsuleIndicati ons:Fibromyalgi a Take 2 capsules (200 mg) by mouth 2 times daily. 120 capsule 07/27/20 25 025 Discontinued(Re order (will not trigger notification to Pharmacy)) gabapentin (Neurontin) 600 MG tabletIndicatio ns:Fibromyalgia Take 1 tablet (600 mg) by mouth 2 times daily. 60 tablet 07/27/20 25 025 Discontinued(Re order (will not trigger [...] Encounters Date Type Department Care Team Description 09/05/[address] [address] Shaista Carranza FNP Hyperlipidemia, unspecified; Chronic pain syndrome 08/25/[address] [address] Pcp, [place] Unassigned Fibromyalgia; Chronic pain syndrome; History of lumbar fusion 07/27/[address] [address] Krystyna Bose PA-C Chronic pain syndrome; History of lumbar fusion; Fibromyalgia 07/04/[address] [address] Shaista Carranza FNP Fibromyalgia; Chronic pain syndrome 07/04/[address] [address] Shaista Carranza FNP Fibromyalgia 07/04/[address] [address] Krystyna Bose PA-C Med Refill 07/03/2025 11:20 AM EDT Office Visit [facility] [address] [place] [address] Shaista Carranza FNP Chronic pain syndrome; History of lumbar fusion from Last 3 Months Immunizations Immunization Administration [...] Procedure Name Priority Date/Time Associated Diagnosis Comments LAB COLOGUARD COLON CANCER SCREEN Routine 09/04/2023 8:12 PM EDT Routine health maintenance PAP, LB WITH CT/GC AND HPV Routine 10/31/2022 10:55 PM EST COLONOSCOPY Routine 10/06/2011 2:33 PM EST from Last 3 Months or Most Recently Relevant to Health Maintenance Results * Cologuard?? colon cancer screening (09/04/2023 8:12 PM EDT) Cologuard Result Negative Negative 09/11/20 5:17 AM EDT [facility] (CLIA #:[id number]) Comment: NEGATIVE TEST RESULT. A negative Cologuard [...] Haskins et al, N Engl J Med 2014;370(14):3964-6857) The normal value (reference range) for this assay is negative. COLOGUARD RE-SCREENING RECOMMENDATION: Periodic colorectal cancer screening is an important part of preventive healthcare for asymptomatic individuals at average risk for colorectal cancer. Following a negative Cologuard result, the [place] [employer] and U.S. Multi-Society Task Force screening guidelines recommend a Cologuard re-screening interval of 3 years. References: [place] [employer] Guideline for Colorectal Cancer Screening: https://www.cancer.org/cancer/mwcuy-gyzxwc-ycwcki/ycvxefxgr-gxntoyluq-qfddduz/ac s-rec ommendations.html.; Sarbjit AGUILERA, Veronika SRINIVASAN, Shavonne GonzálesK, Colorectal Cancer Screening: Recommendations for Physicians and Patients from the U.S. Multi-Society Task Force on Colorectal Cancer Screening , Am J Gastroenterology 2017; 112:7218-8172. TEST DESCRIPTION: Composite algorithmic analysis of stool [...] Haskins et al, N Engl J Med 2014;370(14):4502-8110.) Cologuard may produce a false negative or false positive result (no colorectal cancer or precancerous polyp present at colonoscopy follow up). A negative Cologuard test result does not guarantee the absence of CRC or advanced adenoma (pre-cancer). The current Cologuard screening interval is every 3 years. ([place] [employer] and U.S. Multi-Society Task Force). Cologuard performance data in a 10,000 patient pivotal study using colonoscopy as the reference method can be accessed at the following location: www.[employer]/results. Additional description of the Cologuard test process, warnings and precautions can be found at www.[employer].com. Stool specimen (specimen) 09/04/2023 8:12 PM EDT 09/07/2023 1:52 PM EDT Krystyna Bose PA-C LAB MOLECULAR DIAGNOSTICS O RDERABLES Final Result [facility] (CLIA #:[id number]) [place] [address] [place] [place] [address], * PAP, LB with CT/GC and HPV (10/31/2022 10:55 PM EST) PAP, LB WITH CT/GC AND HPV Patient Name: WHITNEY ROSA [facility] Comment: Patient : 1960 (Age: 62) Lab Collection Date: 10/31/2022 Accession Date: 11/01/2022 Sign Out Date: 11/04/2022 Tissue Source: 1: [facility] REGISTERED NURSE PAP TEST, CERVICAL: Final Diagnosis: NEGATIVE FOR INTRAEPITHELIAL LESION OR MALIGNANCY. Satisfactory for evaluation. Endocervical/transformation zone present. Procedures/Addenda: Human Papilloma Virus, High-Risk (Any Dx) Status: Signed Out Interpretation: Negative Methodology: CORD:USE Cord Blood Bank Aptima HPV mRNA assay (Nucleic Acid Amplification Test, NAAT). Clinical History: Date of Last Menstrual Period: not available Menstrual History: not available Contraceptive History: not available Ancillary Testing: HPV (any dx) Case imaged by the [facility] Imaging System with manual rescreening or review. Clinical History (other): z12.4, routine screen Phone #: [phone], On-Call Pathologist: [id number] Testing performed or reported by [facility], a Service of [facility], [address] [place] [address] Celina Garcia MD, Script Worker IA# [id number] 10/31/2022 10:5 5 PM EST 11/01/2022 6:18 AM EST Krystyna Bose PA-C LAB CYTOLOGY ORDERABLES Fin al Result [facility] [address] [place] [address] * Colonoscopy (10/06/2011 2:33 PM EST) Anatomical Region Laterality Modality Endoscopy Impressions 10/06/2011 2:33 PM EST Normal-10 yr rpt Historical Provider ENDOSCOPY PROCEDURE ORDER ROC Final Result from Last 3 Months or Most Recently Relevant to Health Maintenance Insurance [facility] Care Teams Mussel Farmer Relationship Specialty Start Date End Date Den Hernandez Unassigned PCP - General Family Medicine 08/24/25
== END 2025-09-14 14:09 | disposition home or self-care (01) ==
LOC: HO.HNS 13:29
PROVIDERS: Visit Provider Physician Assistant
DX: M43.16 Spondylolisthesis, lumbar region (principal)
CPT/HCPCS: 99213